=== PATIENT | male | born 1950 | race Caucasian/White ===

== ENCOUNTER 2020-11-14 00:36 | Outpatient (CLI) | payer MEDICARE, OTHER, SELFPAY ==
[2020-11-14 19:17] LABS: SARS-CoV-2 RNA PCR Negative
== END 2020-11-14 00:37 | disposition home or self-care (01) ==
LOC: ANHCOVIDDT 00:37
PROVIDERS: Family Provider Internal Medicine Geriatric Medicine; PCP Internal Medicine Geriatric Medicine; Visit Provider Internal Medicine Cardiovascular Disease
DX: Z01.812 Encounter for preprocedural laboratory examination (principal); Z20.822 Contact with and (suspected) exposure to COVID-19
CPT/HCPCS: C9803; U0003; U0005

== ENCOUNTER 2020-11-17 00:42 | Day surgery (SDC) | payer MEDICARE, OTHER, SELFPAY ==
[2020-11-17 07:41] VITALS: BP 124/90; PULSE 63; RESP 18; TEMP 36.6; O2SAT 98; BMI 29.9
--- NOTE | 2020-11-17 08:44 | WPDHPUPDATE1 ---
History and Physical Update Update Date/Time: 11/17/20 08:44 History and Physical has been reviewed, including an updated exam of the patient. There are NO changes in the patient's condition. Risks, benefits, and alternatives have been discussed and questions answered. Patient agrees to proceed with procedure.
--- NOTE | 2020-11-17 08:45 | P.OP_ITS ---
Procedure Note - Detailed Date of procedure: 11/17/20 Pre-op diagnosis: Near Syncope, NSVT Post-op diagnosis: same Procedure performed: Loop recorder implantation Description of procedure: Brief history present illness: Patient is a very pleasant 70-year-old male with a history of documented nonsustained VT, recurrent syncope and near-syncope referred for loop recorder implantation for further evaluation. After verbal and written informed consent was obtained from the patient risks, benefits, and alternatives explained in detail the patient agreed to proceed with the plan of care as outlined above. Patient was evaluated at bedside in the [facility] procedure room. Patient was placed the appropriate supine position. Left anterior chest wall was prepped and draped in the usual sterile fashion. Operators in appropriate sterile garb. The left 4th intercostal space was identified and marked. Utilizing approximately 26 cc of 1% subcutaneous lidocaine the left anterior chest wall was then locally anesthetized. After loc al anesthesia was achieved, 2 fingerbreadths left of the sternum at the 4th intercostal space was again identified and a 1 cm incision was made with the included skin punch tool. Following this with the included introducer, a tract was made subcutaneously at a 45 degree angle from the sternum. The introducer was then inverted 180 degrees and with the included plunger the Medtronic REVEAL LINQ loop recorder was advanced subcutaneously into position easily and without complication. The plunger was then removed followed by the introducer. Manual pressure was held for least 10 min with satisfactory hemostasis. The device was then interrogated and revealed excellent waveform measured at 0.14mV. The Medtronic REVEAL LINQ SN [id number] was implanted without complication. The incision was then approximated and closed using ExoFin skin adhesive The incision was then covered with a sterile dressing. Complications: None Implants: Medtronic Reveal LINQ loop recorder Anesthesia: local Surgeon: Dk Willis MD Estimated blood loss (mL): 0 Drains: No Packing: No Pathology: none sent Complications: No immediate complications Condition: stable Disposition: same day Findings: Successful implantation of Medtronic Reveal LINQ implantable loop recorder
[2020-11-17 09:30] VITALS: BP 129/91; PULSE 60; RESP 18; O2SAT 98
--- NOTE | 2020-11-17 09:46 | SUR.PHASEII ---
Pt. reviewed Linq informational video and successfully completed quiz. Pt. denies questions upon discharge.
--- NOTE | 2020-11-17 09:51 | SUR.PHASEII ---
Pt. given discharge education on event recorder implant and at-home care. Pt. instructed to follow-up in office for one week follow-up appointment on 11/24 at 0945 and to arrive at appointment at 0930. Pt. verbalizes understanding.
== END 2020-11-17 09:53 | disposition home or self-care (01) ==
PROVIDERS: PCP Internal Medicine Geriatric Medicine; Visit Provider Internal Medicine Cardiovascular Disease
PROC: (CPT 33285; principal; 2020-11-17 08:30)
DX: R55 Syncope and collapse (principal); I47.1 Supraventricular tachycardia
CPT/HCPCS: 33285; C1764

== ENCOUNTER 2020-11-21 14:39 | Outpatient (CLI) | payer MEDICARE, OTHER, SELFPAY ==
--- NOTE | ~2020-11-21 | CT_ITS ---
EXAMINATION: CT hip LT wo con DATE: 11/21/2020 15:06 INDICATION: Left hip pain. TECHNIQUE: Computed tomography (CT) of the left hip was performed without intravenous contrast. Autom ated exposure control and iterative reconstruction technique were employed. The dose-length product w as 320.54 mGy-cm. COMPARISON: None FINDINGS: There is a total left hip arthroplasty in near-anatomic alignment. No periprosthetic lucenc y to suggest loosening or infection. No fracture. The musculature is unremarkable. IMPRESSION: 1. Total left hip arthroplasty in near-anatomic alignment. Reviewed, dictated and finalized at location A. [employer]
== END 2020-11-21 14:40 | disposition home or self-care (01) ==
PROVIDERS: PCP Internal Medicine Geriatric Medicine; Visit Provider Physician Assistant
DX: M17.12 Unilateral primary osteoarthritis, left knee (principal)
CPT/HCPCS: 73700

== ENCOUNTER 2020-12-23 11:26 | Outpatient (CLI) | payer MEDICARE, OTHER, SELFPAY ==
--- NOTE | ~2020-12-23 | XR_ITS ---
EXAMINATION: XR lg joint inject/asp w image DATE: 12/23/2020 12:05 INDICATION: Left hip pain. TECHNIQUE: A time-out was performed to verify the patient's name, date of , and procedure to b e performed. The procedure including the risks, benefits, and alternatives was discussed with the pat ient. Risks discussed included bleeding and infection. The patient understood the risks and agreed to proceed. The skin overlying the left hip joint was prepped and draped in usual sterile fashion. An esthetic was administered with 1% lidocaine subcutaneously. A 22 G needle was advanced under fluoros copic guidance into the joint. Injection of 1 mL of Omnipaque 240 confirmed intra-articular position of the needle. Subsequently, injectate consisting of 2 mL 2% lidocaine and 1 mL 40 mg/mL Depo-Medro l was instilled. The needle was removed and the entry site was cleaned and dressed. There were no i mmediate complications. Fluoroscopy exposure time was 0.1 minutes. The total number of images was 3. FINDINGS: Real-time fluoroscopy demonstrates the needle in the left hip joint. Patient's pain prior t o procedure:0/10. Patient's pain following the procedure: 2/10. IMPRESSION: 1. Fluoroscopy guided left hip joint injection of local anesthetic and steroid. Reviewed, dictated and finalized at location A. [employer]
== END 2020-12-23 11:27 | disposition home or self-care (01) ==
PROVIDERS: PCP Internal Medicine Geriatric Medicine; Visit Provider Physician Assistant
DX: M25.552 Pain in left hip (principal)
CPT/HCPCS: 20610; 77002; J1030; Q9966

== ENCOUNTER 2021-02-06 13:57 | Outpatient (CLI) | payer MEDICARE, OTHER, SELFPAY ==
--- NOTE | ~2021-02-06 | XR_ITS ---
EXAMINATION: XR lg joint inject/asp w image DATE: 02/06/2021 14:59 INDICATION: Chronic left hip pain TECHNIQUE: A time-out was performed to verify the patient's name, date of , and procedure to b e performed. The procedure including the risks, benefits, and alternatives was discussed with the pat ient. Risks discussed included bleeding and infection. The patient understood the risks and agreed to proceed. The skin overlying the left hip joint was prepped and draped in usual sterile fashion. An esthetic was administered with 1% lidocaine subcutaneously. A 22 G needle was advanced under fluoros copic guidance into the joint. Injection of 2 mL of Omnipaque 240 confirmed intra-articular position of the needle. Subsequently, injectate consisting of 5 mm of a 4:1 mixture of 1% lidocaine, 40 mg/m L Depo-Medrol for a total dose of 40 mg Depo-Medrol was instilled. The needle was removed and the ent ry site was cleaned and dressed. There were no immediate complications. Fluoroscopy exposure time wa s 0.2 minutes. The total number of images was 1. FINDINGS: Left total hip arthroplasty. Contrast is seen extending expected oblique pattern along the course of the iliopsoas bursa extending from a needle which is superimposed over the superomedial asp ect of the acetabular component of the arthroplasty. Patient's pain prior to procedure:310. Patient 's pain following the procedure: 310. IMPRESSION: 1. Successful left iliopsoas bursal injection of local anesthetic and steroid with no change in the p atient's presenting pain. Reviewed, dictated and finalized at location A. IMPRESSION: 1. Successful left iliopsoas bursal injection of local anesthetic and steroid w ith no change in the patient's presenting pain.
== END 2021-02-06 13:58 | disposition home or self-care (01) ==
PROVIDERS: PCP Internal Medicine Geriatric Medicine; Visit Provider Orthopaedic Surgery
DX: M25.552 Pain in left hip (principal)
CPT/HCPCS: 20610; 77002; J1030; Q9966

== ENCOUNTER 2022-02-05 00:50 | Day surgery (SDC) | payer MEDICARE, OTHER, SELFPAY ==
[2022-02-04 10:35] VITALS: BMI 29.0
[2022-02-05 07:22] VITALS: BP 107/81; PULSE 70; RESP 18; TEMP 36.4; O2SAT 96; BMI 28.6
[2022-02-05 07:33] LABS: Basophils Absolute Auto 0.1 K/mm3 (0.0-0.1); Basophils Percent Auto 1.4 % (0.2-1.2); Eosinophils Absolute Auto 0.2 K/mm3 (0-0.3); Eosinophils Percent Auto 4.4 % (0-4.4); Hemoglobin 16.7 g/dL (14.0-18.0); Immature Granulocyte Absolute 0.01 K/mm3 (0.00-0.031); Immature Granulocyte Percent A 0.2 % (0-0.5); Lymphocytes Absolute Auto 1.17 K/mm3 (0.9-3.2); Lymphocytes Percent Auto 27.1 % (18.3-44.2); Mean Corpuscular HGB Conc 33.4 g/dl (32-36); Mean Corpuscular Hemoglobin 30.5 pg (26-34); Mean Corpuscular Volume 91.2 fl (80-100); Mean Platelet Volume 8.9 fl (7.4-10.4); Monocytes Absolute Auto 0.6 K/mm3 (0.1-0.6); Monocytes Percent Auto 14.8 % (2.6-8.5); Neutrophils Absolute Auto 2.3 K/mm3 (1.3-6.7); Neutrophils Percent Auto 52.1 % (45.5-73.1); Platelet Count Result 254 k/mm3 (150-375); Red Blood Count 5.48 M/mm3 (4.6-6.20); White Blood Count 4.3 K/mm3 (4.5-10.0)
[2022-02-05 07:43] LABS: Anion Gap 8 mmol/L (8-16); Blood Urea Nitrogen 30 mg/dL (9-20); Calcium 8.9 mg/dL (8.4-10.2); Carbon Dioxide 23 mmol/L (22-30); Chloride 109 mmol/L (98-107); Estimated CRCL calculation 44 ml/min; Estimated Glomerular Filt Rate 50; Glucose 123 mg/dL (65-110); Potassium 4.1 mmol/L (3.4-5.0); Sodium 140 mmol/L (137-145)
--- NOTE | 2022-02-05 08:55 | WPDHPUPDATE1 ---
History and Physical Update Update Date/Time: 02/05/22 08:55 History and Physical has been reviewed, including an updated exam of the patient. There are NO changes in the patient's condition. Risks, benefits, and alternatives have been discussed and questions answered. Patient agrees to proceed with procedure.
--- NOTE | 2022-02-05 08:58 | PM.OP ---
Procedure Note - Brief Procedure Note - Brief Date of procedure: 02/05/22 Pre-op diagnosis: Loop Recorder no longer needed history of nonsustained VT, paroxysmal atrial fibrillation, syncope; patient request explantation of loop recorder Post-op diagnosis: Same Procedure performed: loop recorder explantation Description of procedure: Brief History of Present Illness: Patient is a very pleasant 71-year-old male with a past medical history significant for syncope, nonsustained VT, paroxysmal atrial fibrillation status post loop recorder implantation 11/17/2020 for syncope and nonsustained VT without recurrent VT but noted paroxysmal episodes of atrial fibrillation. Despite adequate life of the device patient specifically requests explantation understanding this would limit ongoing evaluation for indications in which this was originally implanted. After verbal and written informed consent was obtained from the patient risks, benefits, and alternatives explained in detail the patient agreed to proceed with the plan of care as outlined above. Patient was evaluated at bedside in the cardiac catheterization lab. Patient was placed the appropriate supine position. Left anterior chest wall was prepped and draped in the usual sterile fashion. Operators in appropriate sterile garb. The prior device implantation site was once again identified at approximately the 4th intercostal space. Utilizing approximately 17 cc of 1% subcutaneous lidocaine the left anterior chest wall was then locally anesthetized. After local anesthesia was achieved, an approximately 1 cm incision was made with a scalpel. Subsequently, blunt dissection was then performed in the Medtronic Reveal LINQ was identified and extracted with the assistance of sharp dissection of minimal residual adhesions. Devices removed easily without complication. the device was noted be intact and clean. The pocket was then copiously flushed with Ancef solution. Excellent hemostasis was achieved and further ensured with manual pressure for 5-10 min. the incision was then approximated and closed with ExoFin skin adhesive and additional steristrips applied for additional security once skin adhesive was dry. Sterile dressing then applied. Complications: None Implants: not applicable Anesthesia: local Surgeon: Dk Willis MD Estimated blood loss (mL): 0 Drains: No Packing: No Pathology: None sent Complications: No immediate complications Condition: Stable Disposition: Same day Findings: Successful explantation of Medtronic Reveal LINQ loop recorder per patient request without complication. Recommendations: Follow-up post explantation instructions/ precautions. One week wound check as scheduled.
[2022-02-05 09:30] VITALS: BP 119/85; PULSE 63; RESP 20; O2SAT 100
== END 2022-02-05 10:09 | disposition home or self-care (01) ==
PROVIDERS: PCP Internal Medicine Geriatric Medicine; Visit Provider Internal Medicine Cardiovascular Disease
PROC: (CPT 33286; principal; 2022-02-05 08:30)
DX: Z45.09 Encounter for adjustment and management of other cardiac device (principal); I48.0 Paroxysmal atrial fibrillation; R55 Syncope and collapse; I47.1 Supraventricular tachycardia; E78.5 Hyperlipidemia, unspecified; Z79.82 Long term (current) use of aspirin
CPT/HCPCS: 33286; 36415; 80048; 85025; J0690; J7040

== ENCOUNTER → 2022-03-24 11:16 | Outpatient (CLI) | payer MEDICARE, OTHER, SELFPAY ==
--- NOTE | ~2022-03-24 | MR_ITS ---
EXAMINATION: MR lumbar spine wo con DATE: 03/24/2022 11:46 INDICATION: Lumbar radiculopathy. Low back pain radiating down the left leg. Lateral right calf pain. TECHNIQUE: Magnetic resonance imaging (MRI) of the lumbar spine was performed without intravenous con trast. Sequences included sagittal T2-weighted FSE, sagittal T2-weighted FS FSE, sagittal T1-weighted FSE, and axial T2-weighted FSE. COMPARISON: None FINDINGS: There is 7 degrees levocurvature of lumbar spine. There is 4 mm retrolisthesis of T12 on L1 , 6 mm retrolisthesis of L1 on L2, 4 mm retrolisthesis of L2 on L3, and 3 mm retrolisthesis of L3 on L4. There is mild chronic anterior wedging of T12 vertebral body. There is mildly decreased disc heig ht at T11-T12, severely decreased disc height at T12-L1 and L1-L2, moderately decreased disc height a t L2-L3, mildly decreased disc height at L3-L4 and L4-L5, and severely decreased disc at L5-S1 with e ndplate remodeling. 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 There are cysts in the liver measuring up to 4.2 cm on the right. The following disc levels are specifically discussed: T11-T12: The disc is bulging and has an annular fissure. There is mild bilateral facet joint osteoart hritis. There is mild left neural foraminal stenosis. There is mild central canal stenosis with ventr al indentation of the spinal cord. T12-L1: The disc is bulging and has an annular fissure. There is moderate bilateral facet joint osteo arthritis. There is no neural foraminal stenosis. There is mild central canal stenosis. L1-L2: The disc is bulging and has an annular fissure. There is severe bilateral facet joint osteoart hritis. There is moderate bilateral neural foraminal stenosis. There is mild central canal stenosis. L2-L3: The disc is bulging. There is mild bilateral facet joint osteoarthritis. There is moderate garfield ateral neural foraminal stenosis. There is mild central canal stenosis. L3-L4: The disc is bulging and has an annular fissure. There is severe bilateral facet joint osteoart hritis. There is mild bilateral neural foraminal stenosis. There is mild central canal stenosis. L4-L5: The disc is bulging and has an annular fissure. There is severe bilateral facet joint osteoart hritis. There is mild bilateral neural foraminal stenosis. There is mild central canal stenosis. L5-S1: The disc is bulging and has an annular fissure. There is severe bilateral facet joint osteoart hritis. There is mild bilateral neural foraminal stenosis. There is mild central canal stenosis. IMPRESSION: 1. Severe lumbar and lower thoracic spondylosis. 2. Syringohydromyelia. Reviewed, dictated and finalized at location A.
== END ==
PROVIDERS: PCP Internal Medicine Geriatric Medicine
DX: M54.16 Radiculopathy, lumbar region (principal); M47.816 Spondylosis without myelopathy or radiculopathy, lumbar region; G95.0 Syringomyelia and syringobulbia
CPT/HCPCS: 72148

== ENCOUNTER 2023-02-22 08:47 | Emergency (ER) | payer MEDICARE, OTHER, SELFPAY ==
[2023-02-22 08:49] VITALS: BP 130/86; PULSE 61; RESP 18; TEMP 36.6; O2SAT 96
[2023-02-22] MEDS: ONDANSETRON HCL ODT 4 MG TABLET PO (09:09)
--- NOTE | 2023-02-22 09:27 | ED.EPISTAXIS ---
HPI - Epistaxis General Chief complaint: Epistaxis Stated complaint: epistaxis Time Seen by Provider: 02/22/23 08:54 History of Present Illness HPI Narrative: This is a 72-year-old male who denies past medical history, who presents to the emergency department with a nosebleed. He states that approximately 7:00 this morning, he developed bleeding from the right nares that then progressed to the left. He states he swallowed blood but does not feel nauseous. He states he had a nosebleed approximately 15 years ago requiring cautery. He denies use of anticoagulants. The patient states he was seen at urgent care prior to arrival here. He was given Afrin in both nostrils. Related Data Home Medications Medication Instructions Recorded Confirmed citalopram 40 mg tablet (Celexa) 40 mg PO DAILY 11/17/20 02/05/22 Allergies Allergy/AdvReac Type Severity Reaction Status Date / Time No Known Allergies Allergy Mild Verified 02/22/23 08:54 Review of Systems Review of Systems: CONSTITUTIONAL: Denies fever, chills, or sweats. EYES: Denies visual changes, redness, or discharge. ENT: Epistaxis denies rhinorrhea, congestion, sore throat, or otalgia. CARDIOVASCULAR: Denies chest pain, palpitations, or edema. RESPIRATORY: Denies cough or dyspnea. GASTROINTESTINAL: Denies abdominal pain, nausea, vomiting, or diarrhea. GENITOURINARY: Denies dysuria or hematuria. NEUROLOGIC: Denies headache, numbness, dizziness, or weakness. PSYCHIATRIC: Denies anxiety or depression. [facility] Past Medical History Medical History NSVT (nonsustained ventricular tachycardia) Paroxysmal atrial fibrillation Syncope Surgical History Surgical History Status post placement of implantable loop recorder Social History Social History Alcohol intake: never Exam Narrative: GENERAL: Well-developed, well-nourished, and in no acute distress. HEAD: Normocephalic, atraumatic. EYES: PERRLA and EOMI. ENT: Small amount of blood is noted at the right nares, though there is no noted active bleeding in either nares. No rhinorrhea Mucous membranes moist. Oropharynx without tonsillar hypertrophy exudate or other lesions. No active bleeding is noted in the posterior pharynx CHEST: Clear to auscultation. No respiratory distress. No wheezes rales or rhonchi HEART: Regular rate and rhythm. No murmur heard. Normal peripheral pulses. ABDOMEN: Soft, nontender, nondistended, normal active bowel sounds. EXTREMITIES: Normal range of motion. No edema. NEURO: No focal deficits. Alert and oriented x3. PSYCH: Normal mood and affect. Course Course Emergency Course: 09:46 - Nasal clamp removed. No active bleeding is noted. We will continue to monitor with plan for discharge. 10:29 - No recurrent bleeding noted. Will discharge. Discussed return and emergency precautions including signs/symptoms of hemorrhagic anemia and ACS. The patient voiced understanding and is comfortable with plan. All questions answered to his satisfaction. Vital Signs Vital signs: Vital Signs Temperature 97.8 F 02/22/23 08:49 Pulse Rate 61 02/22/23 08:49 Respiratory Rate 18 02/22/23 08:49 Blood Pressure 130/86 02/22/23 08:49 Pulse Oximetry 96 02/22/23 08:49 Oxygen Delivery Room Air 02/22/23 08:49 Temperature 97.8 F 02/22/23 08:49 Pulse Rate 61 02/22/23 08:49 Respiratory Rate 18 02/22/23 08:49 Blood Pressure 130/86 02/22/23 08:49 Pulse Oximetry 96 02/22/23 08:49 Oxygen Delivery Room Air 02/22/23 08:49 MDM - Epistaxis MDM Narrative Medical decision making narrative: Plan: Number control, reassess Differential Diagnosis Differential diagnosis: Likely anterior epistaxis, posterior epistaxis and other Discharge Plan Discharge Clinical Impression: Epistaxis Patient
--- NOTE | 2023-02-22 10:00 | PC.NURSE ---
nasal clamp removed per [facility] EDP, no active bleeding noted.
[2023-02-22 10:31] VITALS: BP 132/81; PULSE 68; RESP 17; O2SAT 97
== END 2023-02-22 10:40 | disposition home or self-care (01) ==
PROVIDERS: Emergency Provider Preventive Medicine Aerospace Medicine; PCP Internal Medicine Geriatric Medicine
DX: R04.0 Epistaxis (principal); I48.0 Paroxysmal atrial fibrillation
CPT/HCPCS: 99282; A9270

== ENCOUNTER 2025-02-01 19:55 | Emergency (ER) | payer MEDICARE, OTHER, SELFPAY ==
[2025-02-01 19:57] VITALS: BP 120/77; PULSE 77; RESP 16; TEMP 36.6; O2SAT 97
--- OUTSIDE RECORDS SUMMARY | 2025-02-01 19:57 | XMS_ITS | Clinical Summary ---
Author Organization [facility] Address [address] [place] [id number] Care Team Providers Care Bulk Plant Manager Name Role Phone Unavailable Primary Care Provider Unavailabl e Social History Tobacco Use Types Packs/Day Years Used Date Smoking Tobacco: Never Assessed Sex and Gender Information Value Date Recorded Sex Assigned at Not on file Legal Sex Male 7:49 PM CDT Gender Identity Not on file Sexual Orientation Not on file Last Filed Vital Signs Vital Sign Reading Time Taken Comments Blood Pressure 109/76 06/27/2015 10:59 AM CDT Pulse 66 06/27/2015 10:59 AM CDT Temperature - - Respiratory Rate - - Oxygen Saturation - - Inhaled Oxygen Concentration - - Weight 98.9 kg (218 lb 2.1 oz) 06/27/2015 10:59 AM CDT Height 175.3 cm (5' 9 ) 06/27/2015 10:59 AM CDT Body Mass Index 32.21 06/27/2015 10:59 AM CDT Plan of Treatment Health Maintenance Due Date Last Done Comments Colorectal Cancer Screening Colonoscopy (10 Years) 1950 Hepatitis C 1969 DTaP, Tdap and Td Vaccines ( 1 - Tdap) 1970 Zoster Vaccines (1 of 2) 2001 Pneumococcal Vaccine: 50+ Ye ars (1 of 1 - PCV) 2016 COVID-19 Vaccine ( - 2023-2 5 season) 2024 RSV Immunization or 60+ Years (1 - 1-dose 75+ series) 2026 Meningococcal B Vaccine Aged Out No l onger eligible based on patient's age to complete this topic Meningococcal Vaccine Aged Out No mann elmer eligible based on patient's age to complete this topic RSV Immunizations Under 20 Months Aged Out No longer eligible based on patient's age to complete this topic
--- OUTSIDE RECORDS SUMMARY | 2025-02-01 19:57 | XMS_ITS | Encounter Summary ---
Author Organization [facility] Address [address] [place] [address] Phone Care Team Providers Care Lpn Private Duty Name Role Phone Zaina Terry MD Primary Care Provider + [phone] Jonathan Wong MD Unavailable [phone] Matthew Cole Unavailable Unavail able Wes Oreilly MD Unavailable + Mark Nelson OD Unavailable [phone] Shelley Figueroa MD, Duy Dunaway Unavailable [phone] Dk Willis MD Unavailable [phone] Everardo Huertas MD Unavailable [phone] Ladonna Figueroa MD, Wayne Maguire Unavailable +- [phone] Kevin Barone MD Unavailable Turner Ramos MD Unavailable [phone] Mark Lugo MD Unavailable [phone] Kristina Fonseca Unavailable [phone] David Maguire MD Unavailable [phone] Encounter Details Date Type Department Care Team (Late st Contact Info) Description 09/05/2017 Orders Only [facility] [address] [place] [phone] Zaina Terry MD [address] [place] [address] Social History Tobacco Use Types Packs/Day Years Used Date Smoking Tobacco: Never Smokeless Tobacco: Never Alcohol Use Standard Drinks/Week Comments No 0 (1 standard drink = 0.6 oz pur e alcohol) Sex and Gender Information Value Date Recorded Sex Assigned at Not on file Legal Sex Male 6:46 PM TANK TERMINAL GAUGER Gender Identity Not on file Sexual Orientation Straight 09/10/2020 8: 05 AM TANK TERMINAL GAUGER 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 on file Not on fi le documented as of this encounter Plan of Treatment Not on file documented as of this encounter Procedures Procedure Name Priority Date/Time Associated Diagnosis Comments SCAN - RADIOLOGY/IMAGING 09/05/2017 3:06 PM TANK TERMINAL GAUGER documented in this encounter Results * SCAN - RADIOLOGY/IMAGING (09/05/2017 3:06 PM TANK TERMINAL GAUGER) Anatomical Region Laterality Modality Other Zaina Terry MD Final Resu lt documented in this encounter Visit Diagnoses Not on filedocumented in this encounter Additional Health Concerns Infection Onset Date Last Indicated Resolved Time COVID: Suspected 09/05/2020 09/05/2020 09/06/2020 12:29 AM TANK TERMINAL GAUGER Respiratory Infection (SUMAYA), contact + droplet Comment:Automatically added due to negative COVID-19 result. 09/06/2020 09/06/2020 09/20/2020 3:0 6 AM TANK TERMINAL GAUGER COVID: Suspected 10/14/2024 10/14/2024 10/14/2024 3:28 PM TANK TERMINAL GAUGER Influenza, adult 10/14/2024 10/14/2024 10/21/2024 3:05 AM TANK TERMINAL GAUGER documented as of this encounter Care Teams Lpn Private Duty Relationship Specialty Start Date End Date Zaina Terry MD PCP - General 06/15/16 Jonathan Wong MD Surgeon Orthopedic Surgery 08/26/17 [place] Gastroenterology 08/26/17 09/12/20 Wes Oreilly MD [address] [place] [address] Consulting Physician Gastroenterology 08/26/17 0 Mark Nelson OD [address] [place] [address] Ophthalmology 08/26/17 Duy Rosa Jr., MD [address] [place] [address] Consulting Physician Cardiovascular Disease 08/28/17 1 11/12/19 Dk Willis MD [address] [place] [address] Consulting Physician Cardiology 11/01/17 Everardo Huertas MD [address] [place] [address] [address] [place] [address] Consulting Physician Gastroenterology 04/11/18 Wayne Dougherty Jr., MD [address] [place] [address] [address] [place] [address] Consulting Physician Orthopedic Surgery 10/06/18 Kevin Barone MD [address] [place] [address] [address] [place] [address] Consulting Physician General Surgery 02/25/21 Turner Ramos MD [address] [facility] [address] Consulting Physician Gastroenterology 02/27/21 Mark Lugo MD [address] [facility] [place] [address] Surgeon Orthopedic Surgery 07/17/21 Kristina Fonseca PA [address] [facility] [place] [address] Physician Pipe Machine Operator Orthopedic Surgery 07/22/21 David Maguire MD [address] [place] [address] Consulting Physician Otolaryngology 02/01/24 documented as of this encounter
--- OUTSIDE RECORDS SUMMARY | 2025-02-01 19:57 | XMS_ITS | Encounter Summary ---
Author Organization [facility] Healthcare Address [address] [place] [address] Care Team Providers Care Oven Heater Helper Name Role Phone Zaina Terry MD Primary Care Provider Jonathan Wong MD Unavailable +[phone] Mark Nelson OD Unavailable +[phone] Dk Willis MD Unavailable +[phone] Everardo Huertas MD Unavailable +[phone] Ladonna Figueroa MD, Wayne Maguire Unavailable +- [phone] Kevin Barone MD Unavailable Turner Ramos MD Unavailable +[phone] Mark Lugo MD Unavailable +[phone] Kristina Fonseca Unavailable +[phone] David Maguire MD Unavailable +[phone] Encounter Details Date Type Department Care Team (Late st Contact Info) Description 07/03/2021 Telephone [facility] [address] [place] [id number] Rip Hunt, RT Social History Tobacco Use Types Packs/Day Years Used Date Smoking Tobacco: Never Smokeless Tobacco: Never Alcohol Use Standard Drinks/Week Comments No 0 (1 standard drink = 0.6 oz pur e alcohol) AUDIT-C Answer Date Recorded Q1: How often do you have a drink containing alc ohol? 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 on file Not on fi le documented as of this encounter Plan of Treatment Not on file documented as of this encounter Visit Diagnoses Not on filedocumented in this encounter Additional Health Concerns Infection Onset Date Last Indicated Resolved Time COVID: Suspected 10/14/2024 10/14/2024 10/14/2024 3:28 PM IMMIGRATION PATROL INSPECTOR Influenza, adult 10/14/2024 10/14/2024 10/21/2024 3:05 AM IMMIGRATION PATROL INSPECTOR documented as of this encounter Care Teams Oven Heater Helper Relationship Specialty Start Date End Date Zaina Terry MD PCP - General 06/15/16 Jonathan Wong MD Surgeon Orthopedic Surgery 08/26/17 Mark Nelson OD [address] [place] [address] Ophthalmology 08/26/17 Dk Willis MD [address] [place] [address] Consulting Physician Cardiology 11/01/17 Everardo Huertas MD [address] [facility] [address] [place] [address] Consulting Physician Gastroenterology 04/11/18 Wayne Dougherty Jr., MD [address] [facility] [address] [place] [address] Consulting Physician Orthopedic Surgery 10/06/18 Kevin Barone MD [address] [facility] [address] Rydre [address] [place] [address] Consulting Physician General Surgery 02/25/21 Turner Ramos MD [address] [facility] [address] Ryder [address] [place] [address] Consulting Physician Gastroenterology 02/27/21 Mark Lugo MD [address] [place] [address] [address] [place] [address] Surgeon Orthopedic Surgery 07/17/21 Kristina Fonseca PA [address] [facility] [address] Ryder [address] [place] [address] Physician Cashier Credit Orthopedic Surgery 07/22/21 David Maguire MD [address] [place] [address] Consulting Physician Otolaryngology 02/01/24 documented as of this encounter
--- OUTSIDE RECORDS SUMMARY | 2025-02-01 19:57 | XMS_ITS | Encounter Summary ---
Author Organization [facility] ts Address [address] [place] [address] Phone Care Team Providers Care Resident Services Manager Name Role Phone Zaina Terry MD Primary Care Provider + [phone] Jonathan Wong MD Unavailable +[phone] Matthew Cole Unavailable Unavail able Wes Oreilly MD Unavailable + Mark Nelson OD Unavailable +[phone] Shelley Figueroa MD, Duy Dunaway Unavailable +[phone] Dk Willis MD Unavailable +[phone] Everardo Huertas MD Unavailable +[phone] Ladonna Figueroa MD, Wayne Maguire Unavailable +- [phone] Kevin Barone MD Unavailable Turner Ramos MD Unavailable +[phone] Mark Lugo MD Unavailable +[phone] Kristina Fonseca Unavailable +[phone] David Magiure MD Unavailable +[phone] Encounter Details Date Type Department Care Team (Late st Contact Info) Description 09/02/2017 Orders Only [facility] [address] [place] [address] Zaina Terry MD [address] [place] [address] Social History Tobacco Use Types Packs/Day Years Used Date Smoking Tobacco: Never Smokeless Tobacco: Never Alcohol Use Standard Drinks/Week Comments No 0 (1 standard drink = 0.6 oz pur e alcohol) Sex and Gender Information Value Date Recorded Sex Assigned at Not on file Legal Sex Male 6:46 PM JAVA DEVELOPER Gender Identity Not on file Sexual Orientation Straight 09/10/2020 8: 05 AM JAVA DEVELOPER 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 on file Not on fi le documented as of this encounter Plan of Treatment Not on file documented as of this encounter Procedures Procedure Name Priority Date/Time Associated Diagnosis Comments SCAN - RADIOLOGY/IMAGING 09/02/2017 11:04 AM JAVA DEVELOPER documented in this encounter Results * SCAN - RADIOLOGY/IMAGING (09/02/2017 11:04 AM JAVA DEVELOPER) Anatomical Region Laterality Modality Other Zaina Terry MD Final Resu lt documented in this encounter Visit Diagnoses Not on filedocumented in this encounter Additional Health Concerns Infection Onset Date Last Indicated Resolved Time COVID: Suspected 09/05/2020 09/05/2020 09/06/2020 12:29 AM JAVA DEVELOPER Respiratory Infection (SUMAYA), contact + droplet Comment:Automatically added due to negative COVID-19 result. 09/06/2020 09/06/2020 09/20/2020 3:0 6 AM JAVA DEVELOPER COVID: Suspected 10/14/2024 10/14/2024 10/14/2024 3:28 PM JAVA DEVELOPER Influenza, adult 10/14/2024 10/14/2024 10/21/2024 3:05 AM JAVA DEVELOPER documented as of this encounter Care Teams Resident Services Manager Relationship Specialty Start Date End Date Zaina Terry MD PCP - General 06/15/16 Jonathan Wong MD Surgeon Orthopedic Surgery 08/26/17 Matthew Cole Gastroenterology 08/26/17 09/12/20 Wes Oreilly MD [address] [place] [address] Consulting Physician Gastroenterology 08/26/17 0 Mark Nelson OD [address] [place] [address] Ophthalmology 08/26/17 Duy Rosa Jr., MD [address] [place] [address] Consulting Physician Cardiovascular Disease 08/28/17 1 11/12/19 Dk Willis MD [address] [place] [address] Consulting Physician Cardiology 11/01/17 Everardo Huertas MD [address] [place] [address] [address] [place] [address] Consulting Physician Gastroenterology 04/11/18 Wayne Dougherty Jr., MD [address] [place] [address] [address] [place] [address] Consulting Physician Orthopedic Surgery 10/06/18 Kevin Barone MD [address] [place] [address] [address] [place] [address] Consulting Physician General Surgery 02/25/21 Turner Ramos MD [address] [facility] [place] [address] Consulting Physician Gastroenterology 02/27/21 Mark Lugo MD [address] [facility] [place] [place] [address] Surgeon Orthopedic Surgery 07/17/21 Kristina Fonseca PA [address] [facility] [place] [address] Physician Insulation Worker Orthopedic Surgery 07/22/21 David Maguire MD [address] [place] [address] Consulting Physician Otolaryngology 02/01/24 documented as of this encounter
--- OUTSIDE RECORDS SUMMARY | 2025-02-01 19:57 | XMS_ITS | Encounter Summary ---
Author Organization [facility] ts Address [address] [place] [address] Phone Care Team Providers Care Metal Painter Name Role Phone Zaina Terry MD Primary Care Provider + [phone] Jonathan Wong MD Unavailable +[phone] Matthew Cole Unavailable Unavail able Wes Oreilly MD Unavailable + Mark Nelson OD Unavailable +[phone] Shelley Figueroa MD, Duy Dunaway Unavailable +[phone] Dk Willis MD Unavailable +[phone] Everardo Huertas MD Unavailable +[phone] Ladonna Figueroa MD, Wayne Maguire Unavailable +- [phone] Kevin Barone MD Unavailable Turner Ramos MD Unavailable +[phone] Mark Lugo MD Unavailable +[phone] Kristina Fonseca Unavailable +[phone] David Maguire MD Unavailable +[phone] Encounter Details Date Type Department Care Team (Late st Contact Info) Description 09/05/2017 Orders Only [facility] [address] [place] [address] Zaina Terry MD [address] [place] [address] Social History Tobacco Use Types Packs/Day Years Used Date Smoking Tobacco: Never Smokeless Tobacco: Never Alcohol Use Standard Drinks/Week Comments No 0 (1 standard drink = 0.6 oz pur e alcohol) Sex and Gender Information Value Date Recorded Sex Assigned at Not on file Legal Sex Male 6:46 PM MOTORCYCLE POLICE OFFICER Gender Identity Not on file Sexual Orientation Straight 09/10/2020 8: 05 AM MOTORCYCLE POLICE OFFICER 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 on file Not on fi le documented as of this encounter Plan of Treatment Not on file documented as of this encounter Procedures Procedure Name Priority Date/Time Associated Diagnosis Comments SCAN - RADIOLOGY/IMAGING 09/05/2017 3:06 PM MOTORCYCLE POLICE OFFICER documented in this encounter Results * SCAN - RADIOLOGY/IMAGING (09/05/2017 3:06 PM MOTORCYCLE POLICE OFFICER) Anatomical Region Laterality Modality Other Zaina Terry MD Final Resu lt documented in this encounter Visit Diagnoses Not on filedocumented in this encounter Additional Health Concerns Infection Onset Date Last Indicated Resolved Time COVID: Suspected 09/05/2020 09/05/2020 09/06/2020 12:29 AM MOTORCYCLE POLICE OFFICER Respiratory Infection (SUMAYA), contact + droplet Comment:Automatically added due to negative COVID-19 result. 09/06/2020 09/06/2020 09/20/2020 3:0 6 AM MOTORCYCLE POLICE OFFICER COVID: Suspected 10/14/2024 10/14/2024 10/14/2024 3:28 PM MOTORCYCLE POLICE OFFICER Influenza, adult 10/14/2024 10/14/2024 10/21/2024 3:05 AM MOTORCYCLE POLICE OFFICER documented as of this encounter Care Teams Metal Painter Relationship Specialty Start Date End Date Zaina Terry MD PCP - General 06/15/16 Jonathan Wong MD Surgeon Orthopedic Surgery 08/26/17 Matthew Cole Gastroenterology 08/26/17 09/12/20 Wes Oreilly MD [address] [place] [address] Consulting Physician Gastroenterology 08/26/17 0 Mark Nelson OD [address] [place] [address] Ophthalmology 08/26/17 Duy Rosa Jr., MD [address] [place] [address] Consulting Physician Cardiovascular Disease 08/28/17 1 11/12/19 Dk Willis MD [address] [place] [address] Consulting Physician Cardiology 11/01/17 Everardo Huertas MD [address] [place] [address] [address] [place] [address] Consulting Physician Gastroenterology 04/11/18 Wayne Dougherty Jr., MD [address] [place] [address] [address] [place] [address] Consulting Physician Orthopedic Surgery 10/06/18 Kevin Barone MD [address] [place] [address] [address] [place] [address] Consulting Physician General Surgery 02/25/21 Turner Ramos MD [address] [facility] [place] [address] Consulting Physician Gastroenterology 02/27/21 Mark Lugo MD [address] [facility] [place] [address] Surgeon Orthopedic Surgery 07/17/21 Kristina Fonseca PA [address] [facility] [place] [address] Physician Lamp Shades Supervisor Orthopedic Surgery 07/22/21 David Maguire MD [address] [place] [address] Consulting Physician Otolaryngology 02/01/24 documented as of this encounter
--- OUTSIDE RECORDS SUMMARY | 2025-02-01 19:57 | XMS_ITS | CONTINUITY OF CARE DOCUMENT ---
Author Name judd whaley Address Unknown Organization [facility] Address [address] [place] [address] Phone [phone] Care Team Providers Care Cafe Aide Name Role Phone Shelley DIEGO, Duy Unavailable [phone] FAITH DAVILA MD Unavailable FAITH DAVILA MD Unavailable INSURANCE PROVIDERS Payer name Policy type / Coverage type [place] red constitution party ID [employer] Other 1 [id number] [place] [employer] Medicare [id number]
--- OUTSIDE RECORDS SUMMARY | 2025-02-01 19:57 | XMS_ITS | Encounter Summary ---
Author Organization [facility] Address [address] [place] [address] Phone Care Team Providers Care Industrial Health Engineer Name Role Phone Zaina Terry MD Primary Care Provider [phone] Jonathan Wong MD Unavailable +[phone] Mark Nelson OD Unavailable +[phone] Dk Willis MD Unavailable Everardo Huertas MD Unavailable +[phone] Ladonna Figueroa MD, Wayne Maguire Unavailable [phone] Kevin Barone MD Unavailable Turner Ramos MD Unavailable +[phone] Mark Lugo MD Unavailable +[phone] Kristina Fonseca Unavailable +[phone] David Maguire MD Unavailable +[phone] Encounter Details Date Type Department Care Team (Late st Contact Info) Description 10/27/2020 Orders Only [facility] [address] [place] [address] Scanning, Provider Social History Tobacco Use Types Packs/Day Years Used Date Smoking Tobacco: Never Smokeless Tobacco: Never Alcohol Use Standard Drinks/Week Comments No 0 (1 standard drink = 0.6 oz pur e alcohol) PHQ-2 Answer Date Recorded PHQ-2 Total Score (If total score is 3 or more points, staff should administer the PHQ-9) 0 02/29/2020 Sex and Gender Information Value Date Recorded Sex Assigned at Not on file Legal Sex Male 6:46 PM AQUARIUM TANK ATTENDANT Gender Identity Not on file Sexual Orientation Straight 09/10/2020 8: 05 AM AQUARIUM TANK ATTENDANT 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 on file Not on fi le documented as of this encounter Plan of Treatment Not on file documented as of this encounter Procedures Procedure Name Priority Date/Time Associated Diagnosis Comments GI - RESULT 10/27/2020 documented in this encounter Results * GI - RESULT (10/27/2020) Anatomical Region Laterality Modality Other us Provider Scanning Final Result documented in this encounter Visit Diagnoses Not on filedocumented in this encounter Additional Health Concerns Infection Onset Date Last Indicated Resolved Time COVID: Suspected 10/14/2024 10/14/2024 10/14/2024 3:28 PM AQUARIUM TANK ATTENDANT Influenza, adult 10/14/2024 10/14/2024 10/21/2024 3:05 AM AQUARIUM TANK ATTENDANT documented as of this encounter Care Teams Industrial Health Engineer Relationship Specialty Start Date End Date Zaina Terry MD PCP - General 06/15/16 Jonathan Wong MD Surgeon Orthopedic Surgery 08/26/17 Mark Nelson OD [address] [place] [address] Ophthalmology 08/26/17 Dk Willis MD [address] [place] [address] Consulting Physician Cardiology 11/01/17 Everardo Huertas MD [address] [facility] [address] [place] [address] Consulting Physician Gastroenterology 04/11/18 Wayne Dougherty Jr., MD [address] [place] [address] [address] [place] [address] Consulting Physician Orthopedic Surgery 10/06/18 Kevin Barone MD [address] [facility] [address] [place] [address] Consulting Physician General Surgery 02/25/21 Turner Ramos MD [address] [place] [address] [address] [place] [address] Consulting Physician Gastroenterology 02/27/21 Mark Lugo MD [address] [place] [address] [address] [place] [address] Surgeon Orthopedic Surgery 07/17/21 Kristina Fonseca PA [address] [facility] [place] [address] Physician Three Dimensional Art Instructor Orthopedic Surgery 07/22/21 David Maguire MD [facility] [place] [address] Consulting Physician Otolaryngology 02/01/24 documented as of this encounter
--- OUTSIDE RECORDS SUMMARY | 2025-02-01 19:57 | XMS_ITS | Encounter Summary ---
Author Organization [facility] ts Address [address] [place] [address] Phone Care Team Providers Care Iron Melter Name Role Phone Zaina Terry MD Primary Care Provider + [phone] Jonathan Wong MD Unavailable +[phone] Matthew Cole Unavailable Unavail able Wes Oreilly MD Unavailable + Mark Nelson OD Unavailable +[phone] Shelley Figueroa MD, Duy Dunaway Unavailable +[phone] Dk Willis MD Unavailable +[phone] Everardo Huertas MD Unavailable +[phone] Ladonna Figueroa MD, Wayne Maguire Unavailable +- [phone] Kevin Barone MD Unavailable Turner Ramos MD Unavailable +[phone] Mark Lugo MD Unavailable +[phone] Kristina Fonseca Unavailable +[phone] David Maguire MD Unavailable +[phone] Encounter Details Date Type Department Care Team (Late st Contact Info) Description 09/02/2017 Orders Only [facility] [address] [place] [address] Zaina Terry MD [address] [place] [address] Social History Tobacco Use Types Packs/Day Years Used Date Smoking Tobacco: Never Smokeless Tobacco: Never Alcohol Use Standard Drinks/Week Comments No 0 (1 standard drink = 0.6 oz pur e alcohol) Sex and Gender Information Value Date Recorded Sex Assigned at Not on file Legal Sex Male 6:46 PM HUMAN RESOURCES CLERK Gender Identity Not on file Sexual Orientation Straight 09/10/2020 8: 05 AM HUMAN RESOURCES CLERK 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 on file Not on fi le documented as of this encounter Plan of Treatment Not on file documented as of this encounter Procedures Procedure Name Priority Date/Time Associated Diagnosis Comments SCAN - RADIOLOGY/IMAGING 09/02/2017 11:04 AM HUMAN RESOURCES CLERK documented in this encounter Results * SCAN - RADIOLOGY/IMAGING (09/02/2017 11:04 AM HUMAN RESOURCES CLERK) Anatomical Region Laterality Modality Other Zaina Terry MD Final Resu lt documented in this encounter Visit Diagnoses Not on filedocumented in this encounter Additional Health Concerns Infection Onset Date Last Indicated Resolved Time COVID: Suspected 09/05/2020 09/05/2020 09/06/2020 12:29 AM HUMAN RESOURCES CLERK Respiratory Infection (SUMAYA), contact + droplet Comment:Automatically added due to negative COVID-19 result. 09/06/2020 09/06/2020 09/20/2020 3:0 6 AM HUMAN RESOURCES CLERK COVID: Suspected 10/14/2024 10/14/2024 10/14/2024 3:28 PM HUMAN RESOURCES CLERK Influenza, adult 10/14/2024 10/14/2024 10/21/2024 3:05 AM HUMAN RESOURCES CLERK documented as of this encounter Care Teams Iron Melter Relationship Specialty Start Date End Date Zaina Terry MD PCP - General 06/15/16 Jnoathan Wong MD Surgeon Orthopedic Surgery 08/26/17 Matthew Cole Gastroenterology 08/26/17 09/12/20 Wes Oreilly MD [address] [place] [address] Consulting Physician Gastroenterology 08/26/17 0 Mark Nelson OD [address] [place] [address] Ophthalmology 08/26/17 Duy Rosa Jr., MD [address] [place] [address] Consulting Physician Cardiovascular Disease 08/28/17 1 11/12/19 Dk Willis MD [address] [place] [address] Consulting Physician Cardiology 11/01/17 Everardo Huertas MD [address] [place] [address] [address] [place] [address] Consulting Physician Gastroenterology 04/11/18 Wayne Dougherty Jr., MD [address] [place] [address] [address] [place] [place] [address] Consulting Physician Orthopedic Surgery 10/06/18 Kevin Barone MD [address] [place] [address] [address] [place] [place] [address] Consulting Physician General Surgery 02/25/21 Turner Ramos MD [address] [facility] [place] [address] Consulting Physician Gastroenterology 02/27/21 Mark Lugo MD [address] [facility] [place] [address] Surgeon Orthopedic Surgery 07/17/21 Kristina Fonseca PA [address] [facility] [address] [facility] [address] Physician Political Theory Professor Orthopedic Surgery 07/22/21 David Maguire MD [address] [place] [address] Consulting Physician Otolaryngology 02/01/24 documented as of this encounter
--- OUTSIDE RECORDS SUMMARY | 2025-02-01 19:58 | XMS_ITS | Encounter Summary ---
Author Organization [facility] Healthcare Address [address] [place] [address] Care Team Providers Care Link Trainer Name Role Phone Zaina Terry MD Primary Care Provider [phone] Jonathan Wong MD Unavailable [phone] Mark Nelson OD Unavailable [phone] Dk Willis MD Unavailable Everardo Huertas MD Unavailable [phone] Ladonna Figueroa MD, Wayne Maguire Unavailable [phone] Kevin Barone MD Unavailable Turner Ramos MD Unavailable [phone] Mark Lugo MD Unavailable [phone] Kristina Fonseca Unavailable [phone] David Maguire MD Unavailable [phone] Encounter Details Date Type Department Care Team (Late st Contact Info) Description 02/01/2025 Telephone [facility] Orthopedics and Sports Medicine [address] [place] [address] [address] [place] [address] Chicho Musa NP [address] [place] [address] [facility] [address] [place] [address] Social History Tobacco Use Types Packs/Day Years Used Date Smoking Tobacco: Never Smokeless Tobacco: Never Alcohol Use Standard Drinks/Week Comments No 0 (1 standard drink = 0.6 oz pur e alcohol) AUDIT-C Answer Date Recorded Q1: How often do you have a drink containing alcohol? Never 01/31/2025 Q2: How many drinks containi ng alcohol do you have on a typical day when you are drinking? Patient does not drink Q3: How often do you have si x or more drinks on one occasion? Never 01/31/2025 PHQ-2 Answer Date Recorded PHQ-2 Total Score (If total score is 3 or more points, staff should administer the PHQ-9) 0 01/18/2025 Personal Safety Answer Date Recorded Have you ever been in or are you currently in a harmful physical or emotional relationship or is someone making you feel afraid or unsafe? 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 Recommend he go to ER for evaluation. Patient verbalizes understanding and agreesto go. documented in this encounter Plan of Treatment Not on file documented as of this encounter Visit Diagnoses Not on filedocumented in this encounter Care Teams Link Trainer Relationship Specialty Start Date End Date Zaina Terry MD PCP - General 06/15/16 Jonathan Wong MD Surgeon Orthopedic Surgery 08/26/17 Mark Nelson OD [address] [place] [address] Ophthalmology 08/26/17 Dk Willis MD [address] [place] [address] Consulting Physician Cardiology 11/01/17 Everardo Huertas MD [address] [place] [address] [place] [address] Consulting Physician Gastroenterology 04/11/18 Wayne Dougherty Jr., MD [address] [place] [address] [place] [address] Consulting Physician Orthopedic Surgery 10/06/18 Kevin Barone MD [address] [place] [address] [place] [address] Consulting Physician General Surgery 02/25/21 Turner Ramos MD [address] [place] [address] [place] [address] Consulting Physician Gastroenterology 02/27/21 Mark Lugo MD [address] [place] [address] [place] [address] Surgeon Orthopedic Surgery 07/17/21 Kristina Fonseca PA [address] [place] [address] [place] [address] Physician Audio Visual Technician Orthopedic Surgery 07/22/21 David Maguire MD [address] [place] [address] Consulting Physician Otolaryngology 02/01/24 documented as of this encounter
--- OUTSIDE RECORDS SUMMARY | 2025-02-01 19:58 | XMS_ITS | Encounter Summary ---
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 Clay Dry Press Mixer Operator Name Role Phone Zaina Terry MD Primary Care Provider + [phone] Jonathan Wong MD Unavailable [phone] Mark Nelson OD Unavailable [phone] Dk Willis MD Unavailable [phone] Everardo Huertas MD Unavailable [phone] Ladonna Figueroa MD, Wayne Maguire Unavailable [phone] Kimberly Barone MD Unavailable Turner Ramos MD Unavailable [phone] Mark Lugo MD Unavailable [phone] Kristina Fonseca Unavailable [phone] David Maguire MD Unavailable [phone] Reason for Visit * Auth/Cert (Routine) Specialty Diagnoses / Procedures Referred By Contac t Referred To Contact Diagnoses Primary osteoarthritis of right knee Primary osteoarthritis of right knee [M17.11] Procedures VT ARTHRP KNE CONDYLE&PLATU MEDIAL&LAT COMPARTMENTS Right Total Knee Arthroplasty- Robotic, Depuy- Attune, Velys, Cooling Unit-[facility], 1 Liter Beta Rinse, Pt to Go Home Referral ID Status Reason Start Date Expiration Date Visits Re quested Visits Authorized [id number] 1 1 Encounter Details Date Type Department Care Team (Late st Contact Info) Description 01/31/2025 8:36 AM CDT Anesthesia Event [facility] Operating Room [address] [place] [address] Marcel Josesito Chon, DO [address] [facility] [address] [address] [place] [address] [place] [address] [facility] [address] [place] [address] Anesthesia Record Procedure Summary Procedure Name Responsible Anesthesiologist Anesthesia Start Time Anesthesia Stop Time Right Robotic Assisted Total Knee Arthroplasty (Right: Knee) Josesito Rod, 01/31/25 0836 01/31/25 1109 Events Date Time Event Comment 01/31/2025 0733 0835 In Room 0836 An Start 0836 An Start Data 0838 an matthew now 0846 Spinal Placed 0847 Start Supplemental O2 Placed on 6L/min oxygen via simple facemask for rest of case unless otherwise noted in subsequent Q-notes. Disregard any other intraoperative oxygen administration beyond this point that may have been auto-populated unless otherwise noted in subsequent Q-notes. 0849 An Induction The patient was reevaluated immediately before moderate or deep sedation use and before anesthesia induction. 0849 Anesthesia Ready 0932 Proc Start 0932 Incision Start 1105 Proc Fin 1105 an stop data 1109 Out of Room 1109 Handoff to RN I completed my handoff to the receiving nurse during which we: 1. Patient identified 2. Responsible provider identified 3. Pertinent medical history reviewed 4. Procedure type and surgical course discussed 5. Intraoperative anesthetic management and any significant issues discussed 6. Expectations and concerns for postop period discussed 7. Questions solicited from receiving nurse 8. Patient disposition at the time of handoff: PACU 1109 An Stop Meds Name Total propofol 1,398.71 mg fentaNYL 100 mcg midazolam 2 mg phenylephrine (BIORPHEN) 0.5 mg/5 mL (10 0 mcg/mL) injection 1,100 mcg ondansetron 8 mg ceFAZolin (ANCEF) 2,000 mg/20 mL in ster ile water (premix) 2,000 mg 2,000 mg tranexamic acid (CYKLOKAPRON ) 1,000 mg/100 mL (10 mg/mL) in sodium chloride (premix) 1,000 mg 1,000 mg dexAMETHasone (DECADRON) 4 mg/mL injecti on 8 mg 8 mg BUPivacaine 0.75 %-dextrose 8.25 % PF 2 mL lidocaine 2 % PF 100 mg glycopyrrolate 0.2 mg dexmedeTOMIDine 4 mcg/mL 28 mcg Lactated Ringer's (LR) infusion 1,000 mL * Agents Name O2% N2O O2 N2O Air * Blood No blood administrations on file. Lines, Drains, and Airways Type Details Placement Removal Wound 01/31/25; 0940; N; Incision; Knee; Anterior, Right; Right total knee arthroplasty 01/31/25 0940 by Lucy Moran RN Peripheral IV Placement Date: 01/15 05/10; Placement Time: 0739; Catheter Size: 20 G; Orientation: Anterior, Left; Location: Wrist; Site Prep: Chlorhexidine; Inserted by: JULIANA Sommer; Insertion Attempts: 1; Patient Tolerance: Tolerated well; Removal Date: 01/31/25; Removal Time: 1605; Removal Reason: Discharge 01/31/25 0739 by Kranthi Madison RN 01/31/25 1605 by Kranthi Madison RN documented in this encounter Social History Tobacco Use Types Packs/Day Years [...] on file Legal Sex Male 6:46 PM [employer] Gender Identity Not on file Sexual Orientation Straight 09/10/2020 8: 05 AM [employer] 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 Never 01/31/2025 7:46 AM ELVIAT Anupam Madison RN Q2: How many drinks containing alcohol do you have on a typical day when you are drinking? Patient does not drink 01/31/2025 7:46 AM ELVIAT Kranthi Madison RN Q3: How often do you have six or more drinks on one occasion? Never 01/31/2025 7:46 AM CDT Anupam Madison RN documented as of this encounter OR Notes * Anesthesia Postprocedure Evaluation - Liu Eubanks CRNA - 01/31/2025 11:09 AM CDT Patient: Matthew Tian Procedure Summary Date: 01/31/25 Room / Location: [facility] OR [address] [place] [address] OPERATING ROOM Anesthesia Start: 835 Anesthesia Stop: 1108 Procedure: Right Robotic Assisted Total Knee Arthroplasty (Right: Knee) Diagnosis: Primary osteoarthritis of right knee (Primary osteoarthritis of right knee [M17.11]) Providers: Mark Lugo MD Responsible Provider: Josesito Rod DO Anesthesia Type: general TIVA, spinal ASA Status: 2 Anesthesia Type: general TIVA, spinal Last vitals BP 119/81 Pulse 59 Temp 36.2 ??C (97.2 ??F) (Temporal) Resp 18 SpO2 98% Anesthesia Post Evaluation Patient location during evaluation: PACU Patient participation: complete - patient participated Level of consciousness: lethargic, follows simple commands and 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 * Anesthesia Procedure Notes - Liu Eubanks CRNA - 01/31/2025 8:52 AM CDTAssociated Order(s): Spinal Block Spinal Block Patient location: OR Reason for block: primary anesthetic Staff: Placed by: COMPUTER LAB ASSISTANT:Liu Eubanks CRNA Procedure prep: Preprocedure checklist: patient identified, procedure contraindications assessed, site marked, procedure consent, surgical consent, IV checked, risks, benefits and alternatives discussed, monitors and equipment checked and timeout performed Patient position: sitting Procedure performed while patient: sedate with meaningful contact Monitoring: oximetry and blood pressure Prep solution: chlorhexadine/alcohol PPE: provider hat/mask, sterile gloves and sterile drape Skin infiltrated with lidocaine 1%: yes Spinal: Approach: midline Introducer used: no Location: L4-5 Spinal injection: CSF demonstrated, no aspiration of heme and no paresthesias noted Number of attempts: 2 Other sites attempted: L3-4 Spinal Needle: Needle type: Gracia Needle gauge: 22 G Needle length: 9 cm Assessment: Sensory deficit - left: full eval pending Sensory deficit - right: full eval pending Events: patient tolerated procedure well with no complications * Anesthesia Preprocedure Evaluation - Urban Lopez MD - 01/31/2025 7:25 AM CDT Images from the original note were not included. Anesthesia Evaluation Matthew Tian is a 74 y.o. male Right Total Knee Arthroplasty- Robotic, Depuy- Attune, Velys, Cooling Unit[facility], 1 Liter BetaRinse, Pt to Go Home (Right: Knee) Pre-Op Diagnosis Codes: * Primary osteoarthritis of right knee [M17.11] HISTORY Past Medical History Information obtained from: patient and chart. Information obtained during: In Person Neurological + Psychiatric history - depression and anxiety Cardiovascular Cardiac system: negative Respiratory Respiratory system: negative Hepatic / Heme Hepatic/Heme system: negative Gastrointestinal GI system: negative Renal / + Renal disease - CKD Musculoskeletal/Pain + Osteoarthritis Endocrine / Other Endocrine/Other system: negative Patient Active Problem List Diagnosis Date Noted Pre-op evaluation 01/14/2025 S/P bilateral inguinal hernia repair, follow-up exam 12/13/2024 Insomnia due to medical condition 08/28/2024 Primary osteoarthritis of right knee 06/01/2024 Elevated serum creatinine 02/06/2024 Frequent nosebleeds 02/06/2024 Sacroiliitis 06/08/2023 DDD (degenerative disc disease), lumbar 03/30/2022 Lumbar radiculopathy 03/23/2022 Celiac artery stenosis 03/13/2021 Bilateral inguinal hernia without obstruction or gangrene 02/27/2021 Hiatal hernia 02/24/2021 Mood disorder 02/22/2021 GERD without esophagitis 02/22/2021 Dizziness 02/18/2021 Status post placement of implantable loop recorder 11/17/2020 NSVT (nonsustained ventricular tachycardia) (HCC) 09/10/2020 Multiple-type hyperlipidemia 02/29/2020 Sleep-disordered breathing 05/19/2018 BPH without urinary obstruction 04/14/2018 Iron deficiency anemia 04/06/2018 Abnormal EKG 08/28/2017 Recurrent moderate major depressive disorder with anxiety (HCC) 07/17/2017 Past Medical History: Diagnosis Date Adjustment disorder Anemia due to GI blood loss 02/22/2021 BPH (benign prostatic hyperplasia) CKD (chronic kidney disease) stage 3, GFR 30-59 ml/min (HCC) 03/02/2020 Creatinine 1.31 new finding as of annual physical February 2020 Depression GERD (gastroesophageal reflux disease) Occult blood positive stool Pneumonia Pruritus 03/02/2014 Chronic pruritus Ventricular tachycardia (HCC) loop recorder in 2019 and then removed Past Surgical History: Procedure Laterality Date COLONOSCOPY 09/20/2016 Dr. Sullivan (-) COLONOSCOPY 10/27/2020 (-) Dr. Huertas ELBOW SURGERY x's 2 ESOPHAGOSCOPY / EGD 04/07/2018 (+) Dr. Sullivan NSAID ulcer bleeding hemoglobin the 6 ESOPHAGOSCOPY / EGD 02/2020 (+) Dr. Ramos large paraesophageal hernia with ulceration and bleeding HERNIA REPAIR 11/30/2024 Inguinal HM GASTROSCOPY (EGD) 02/24/2020 (+) Dr. Ramos large hiatal hernia with rotation recently bleeding ulcer within the hiatal hernia JOINT REPLACEMENT Bilateral LTHA KNEE ARTHROSCOPY Right LAPAROSCOPIC MAR FUNDOPLICATION 05/06/2021 (+) KIMBERLY Flanagan paraesophageal hernia repair ROTATOR CUFF REPAIR Right TOTAL HIP ARTHROPLASTY Right 07/22/2021 No Known Allergies Med List Status: Nurse Complete Set By: Batsheva Koch RN at 01/24/2025 9:48 AM Taking? Last Dose Start Date End Date Provider cholecalciferol (VITAMIN D-3) 50,000 unit capsule 01/25/2025 03/14/24 -- Zaina Terry MD Take 1 capsule (50,000 Units total) by mouth once a week Notes: Least expensive available on [facility] citalopram (CeleXA) 20 mg tablet 01/30/2025 10/26/24 -- Zaina Terry MD TAKE 1 TABLET BY MOUTH DAILY traZODone (DESYREL) 50 mg tablet 01/30/2025 01/23/25 -- Zaina Terry MD TAKE 1 TABLET (50 MG TOTAL) BY MOUTH NIGHTLY NEEDED FOR SLEEP Current Facility-Administered Medications: acetaminophen (TYLENOL) tablet 1,000 mg, 1,000 mg, oral, Once BUPivacaine (MARCAINE) 50 mg, morphine 10 mg, EPINEPHrine 0.3 mg, ketorolac (TORADOL) 30 mg in sodium chloride 0.9% 20 mL topical solution, , topical, Once Carrier Fluids for Secondary Infusion - 0.9% Sodium Chloride, 30 mL, intravenous, PRN ceFAZolin (ANCEF) 2,000 mg/20 mL in sterile water (premix) 2,000 mg, 2,000 mg, intravenous, Once celecoxib (CeleBREX) capsule 200 mg, 200 mg, oral, Once dexAMETHasone (DECADRON) 4 mg/mL injection 8 mg, 8 mg, intravenous, Once Lactated Ringer's (LR) infusion, 30 mL/hr, intravenous, Continuous sodium chloride 0.9% flush 0.5-20 mL, 0.5-20 mL, intra-catheter, PRN tranexamic acid (CYKLOKAPRON) 1,000 mg/100 mL (10 mg/mL) in sodium chloride (premix) 1,000 mg, 15 mg/kg, intravenous, Once Social History Tobacco Use Smoking Status Never Smokeless Tobacco Never Alcohol Use: Not At Risk (01/24/2025) AUDIT-C Frequency of Alcohol Consumption: Never Average Number of Drinks: Patient does not drink Frequency of Binge Drinking: Never Substance and Sexual Activity Drug Use No Family History Problem Relation Age of Onset Bipolar disorder Father Suicide Completion Father 50 Breast cancer Sister Cancer Sister Prostate cancer Other Vitals: 01/31/25 0717 BP: 119/81 Pulse: 59 Resp: 18 Temp: 36.2 ??C (97.2 ??F) SpO2: 98% PT: No results found for requested labs within last 30 days. INR: No results found for requested labs within last 30 days. APTT: No results found for requested labs within last 30 days. Hgb A1C: 01/11/2025: 5.4 % CBC RBC: 01/11/2025: 4.83 M/cumm RDW: No results found for requested labs within last 30 days. MCHC: 01/11/2025: 33.8 g/dL MCH: 01/11/2025: 31.3 pg MCV: 01/11/2025: 92.5 fL Hct: 01/11/2025: 44.7 % Hgb: 01/11/2025: 15.1 g/dL WBC: 01/11/2025: 4.3 K/cumm MPV: 01/11/2025: 9.1 fL Platelets: 01/11/2025: 234 K/cumm RDW CV: 01/11/2025: 13.6 % RDW Sd: 01/11/2025: 46.6 fL BMP Glucose: 01/11/2025: 108 mg/dL Calcium: 01/11/2025: 9.2 mg/dL Sodium: 01/11/2025: 137 mmol/L Potassium: 01/11/2025: 4.2 mmol/L CO2: 01/11/2025: 23 mmol/L Chloride: 01/11/2025: 101 mmol/L BUN: 01/11/2025: 25 mg/dL Creatinine: 01/11/2025: 1.35 mg/dL (H) STOP-Bang Total Score: 2 DOS Physical Exam Medical history, medications, and allergies reviewed. Attestation: I endorse the findings of the anesthesia pre-evaluation assessment dated: 01/31/2025. Airway Exam: Mallampati: II Cervical ROM: FROM TM distance: normal Dental Exam: Appears intact Current state: Patient's current state is cooperative and interactive. Anesthesia Plan ASA 2 My patient is approved for the Anesthesia Controlled Medication protocol when under care of a COMPUTER LAB ASSISTANT Planned anesthesia: General TIVA and spinal Induction: Induction: intravenous. Postoperative Plan: Postoperative administration opioids intended. No postoperative mechanical ventilation intended. Patient's planned disposition post procedure is Outpatient. Informed Consent: Discussed plan with attending and COMPUTER LAB ASSISTANT. Anesthesia plan and risks discussed with patient. Consent and Attending signature: I and/or my designee have discussed the anesthesia plan, benefits, possible alternatives, parental presence at time of induction (if indicated), and clinically relevant risks that may include dental injury, unintentional awareness, and/or other complications. The patient and/or parent/legal guardian understand, and agree to proceed. All questions answered. documented in this encounter Plan of Treatment Not on file documented as of this encounter Procedures Procedure Name Priority Date/Time Associated Diagnosis Comments ANESTHESIA SPINAL BLOCK Routine 01/31/2025 8:52 AM CDT documented in this encounter Results * Spinal Block (01/31/2025 8:52 AM CDT) Narrative Liu Eubanks CRNA - 01/31/2025 8:52 AM CDT Liu Eubanks CRNA 01/31/2025 8:52 AM Spinal Block Patient location: OR Reason for block: primary anesthetic Staff: Placed by: COMPUTER LAB ASSISTANT:Liu Eubanks CRNA Procedure prep: Preprocedure checklist: patient identified, procedure contraindications assessed, site marked, procedure consent, surgical consent, IV checked, risks, benefits and alternatives discussed, monitors and equipment checked and timeout performed Patient position: sitting Procedure performed while patient: sedate with meaningful contact Monitoring: oximetry and blood pressure Prep solution: chlorhexadine/alcohol PPE: provider hat/mask, sterile gloves and sterile drape Skin infiltrated with lidocaine 1%: yes Spinal: Approach: midline Introducer used: no Location: L4-5 Spinal injection: CSF demonstrated, no aspiration of heme and no paresthesias noted Number of attempts: 2 Other sites attempted: L3-4 Spinal Needle: Needle type: Gracia Needle gauge: 22 G Needle length: 9 cm Assessment: Sensory deficit - left: full eval pending Sensory deficit - right: full eval pending Events: patient tolerated procedure well with no complications Josesito Rod DO ANESTHESIA ORDERABL ES Final Result documented in this encounter Visit Diagnoses Not on filedocumented in this encounter Administered Medications Inactive Administered Medications - up to 3 most recent administrations Medication Order MAR Action Action Date Dose Rate Site BUPivacaine 0.75% (MARCAINE SPINAL) preservative free injection in dextrose intrathecal, As needed, Starting on Phyllis 01/31/25 at 0846, Anesthesia Intra-op, Indications: Spinal AnesthesiaIndications:Spinal Anesthesia Given 01/31/2025 8:46 AM CDT 2 mL ceFAZolin (ANCEF) 2,000 mg/20 mL in sterile water (premix) 2,000 mg 2,000 mg, intravenous, at 400 mL/hr, Administer over 3 Minutes, Once, On Phyllis 01/31/25 at 0800, For 1 dose, Pre-Op, Administer within 60 minutes of incision., Indications: Prophylaxis, SurgicalIndications:Prophylaxis , Surgical Given 01/31/2025 9:30 AM CDT 2,000 mg dexAMETHasone (DECADRON) 4 mg/mL injection 8 mg 8 mg, intravenous, Administer over 2 Minutes, Once, On Phyllis 01/31/25 at 0800, For 1 dose, Intra-Op, Intra-op administration., Indications: Pain Treatment AdjunctIndications:Pain Treatment Adjunct Given 01/31/2025 8:53 AM CDT 8 mg dexmedeTOMIDine in 0.9% sodium chloride (PRECEDEX) 200 mcg/50 mL (4 mcg/mL) infusion (premix) intravenous, As needed, Starting on Phyllis 01/31/25 at 0953, Anesthesia Intra-op Given 01/31/2025 10:31 AM CDT 8 mcg Given 01/31/2025 9:57 AM CDT 8 mcg Given 01/31/2025 9:53 AM CDT 12 mcg fentaNYL (SUBLIMAZE) preservative free injection intravenous, As needed, Starting on Phyllis 01/31/25 at 0836, Anesthesia Intra-op Given 01/31/2025 8:36 AM CDT 100 mcg glycopyrrolate (ROBINUL) injection intravenous, Administer over 1 Minutes, As needed, Starting on Phyllis 01/31/25 at 0858, Anesthesia Intra-op Given 01/31/2025 8:58 AM CDT 0.2 mg Lactated Ringer's (LR) infusion 30 mL/hr, intravenous, Continuous, Starting on Phyllis 01/31/25 at 0800, Pre-Op New Bag 01/31/2025 9:20 AM CDT Rate/Dose Verify 01/31/2025 8:36 AM CDT 30 mL/h r New Bag 01/31/2025 7:39 AM CDT 30 mL/hr 30 mL/hr lidocaine (PF) (XYLOCAINE) 20 mg/mL (2 %) preservative free injection intravenous, As needed, Starting on Phyllis 01/31/25 at 0849, Anesthesia Intra-op Given 01/31/2025 8:49 AM CDT 100 mg midazolam (VERSED) 1 mg/mL preservative free injection intravenous, Administer over 2 Minutes, As needed, Starting on Phyllis 01/31/25 at 0836, Anesthesia Intra-op Given 01/31/2025 8:36 AM CDT 2 mg ondansetron (ZOFRAN) injection intravenous, Administer over 2 Minutes, As needed, Starting on Phyllis 01/31/25 at 0836, Anesthesia Intra-op Given 01/31/2025 8:36 AM CDT 8 mg phenylephrine (BIORPHEN) 0.5 mg/5 mL (100 mcg/mL) injection intravenous, As needed, Starting on Phyllis 01/31/25 at 0858, Anesthesia Intra-op Given 01/31/2025 10:56 AM CDT 200 mc g Given 01/31/2025 10:47 AM CDT 200 mcg Given 01/31/2025 9:26 AM CDT 100 mcg propofoL (DIPRIVAN) 10 mg/mL IV intravenous, As needed, Starting on Phyllis 01/31/25 at 0849, Anesthesia Intra-op Rate/Dose Change 01/31/2025 10:47 AM CDT 100 mcg/kg/min 51.96 mL/hr Rate/Dose Change 01/31/2025 9:38 AM CDT 150 mcg/kg/min 77. 94 mL/hr Rate/Dose Change 01/31/2025 9:33 AM CDT 100 mcg/kg/min 51. 96 mL/hr tranexamic acid (CYKLOKAPRON) 1,000 mg/100 mL (10 mg/mL) in sodium chloride (premix) 1,000 mg 1,000 mg (rounded from 1,299 mg = 15 mg/kg 86.6 kg), intravenous, at 400 mL/hr, Administer over 15 Minutes, Once, On Phyllis 01/31/25 at 0800, For 1 dose, Intra-Op, Administer at time of incision, Indications: Prophylaxis, SurgicalIndications:Prophylaxis, Surgical New Bag 01/31/2025 8:56 AM CDT 1,000 mg documented in this encounter Care Teams Clay Dry Press Mixer Operator Relationship Specialty Start Date End Date Zaina Terry MD PCP - General 06/15/16 Jonathan Wong MD Surgeon Orthopedic Surgery 08/26/17 Mark Nelson OD [address] [place] [address] Ophthalmology 08/26/17 Dk Willis MD [address] [place] [address] Consulting Physician Cardiology 11/01/17 Everardo Huertas MD [address] [facility] [place] [address] Consulting Physician Gastroenterology 04/11/18 Wayne Dougherty Jr., MD [address] [facility] [address] [place] [address] Consulting Physician Orthopedic Surgery 10/06/18 Kimberly Barone MD [address] [facility] [address] Ryder [address] [place] [address] Consulting Physician General Surgery 02/25/21 Turner Ramos MD [address] [facility] [address] Ryder [address] [place] [address] Consulting Physician Gastroenterology 02/27/21 Mark Lugo MD [address] [facility] [place] [address] Surgeon Orthopedic Surgery 07/17/21 Kristina Fonseca PA [address] [facility] [address] Ryder [address] [place] [address] Physician Graphics Software Engineer Orthopedic Surgery 07/22/21 David Maguire MD [address] [place] [address] Consulting Physician Otolaryngology 02/01/24 documented as of this encounter
--- OUTSIDE RECORDS SUMMARY | 2025-02-01 19:58 | XMS_ITS | Encounter Summary ---
Author Organization [facility] Healthcare Address [address] [place] [address] Care Team Providers Care X Ray Technician Name Role Phone Zaina Terry MD Primary Care Provider + [phone] Jonathan Wong MD Unavailable [phone] Mark Nelson OD Unavailable [phone] Dk Willis MD Unavailable [phone] Everardo Huertas MD Unavailable [phone] Ladonna Figueroa MD, Wayne Maguire Unavailable [phone]- [phone] Kimberly Barone MD Unavailable Turner Ramos MD Unavailable [phone] Mark Lugo MD Unavailable [phone] Kristina Fonseca Unavailable [phone] David Maguire MD Unavailable [phone] Reason for Visit * Auth/Cert (Routine) Specialty Diagnoses / Procedures Referred By Contac t Referred To Contact Diagnoses Primary osteoarthritis of right knee Primary osteoarthritis of right knee [M17.11] Procedures [place] ARTHRP KNE CONDYLE&PLATU MEDIAL&LAT COMPARTMENTS Right Total Knee Arthroplasty- Robotic, Depuy- Attune, Velys, Cooling Unit-[facility], 1 Liter Beta Rinse, Pt to Go Home Referral ID Status Reason Start Date Expiration Date Visits Re quested Visits Authorized [id number] 1 1 Encounter Details Date Type Department Care Team (Latest Contact Info) Description 01/31/2025 7:11 AM CDT - 01/31/2025 4:08 PM CDT Hospital Encounter [facility] Operating Room [address] [place] [address] Mark Lugo MD [address] [place] [address] [address] [place] [address] Primary osteoarthritis of right knee (Primary Dx) Discharge Disposition: Discharge to home or self care Social History Tobacco Use Types Packs/Day Years [...] on file Legal Sex Male 6:46 PM [employer] Gender Identity Not on file Sexual Orientation Straight 09/10/2020 8: 05 AM [employer] 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 on file Not on fi le documented as of this encounter Last Filed Vital Signs Vital Sign Reading Time Taken Comments Blood Pressure 120/80 01/31/2025 4:05 PM CDT Pulse 74 01/31/2025 4:05 PM CDT Temperature 36.2 C (97.1 F) 01/31/2025 4:05 PM CDT Respiratory Rate 20 01/31/2025 4:05 PM CDT Oxygen Saturation 97% 01/31/2025 4:05 PM CDT Inhaled Oxygen Concentration - - Weight 86.6 kg (190 lb 14.7 oz) 01/31/2025 7:17 AM CDT Height 175.3 cm (5' 9 ) 01/31/2025 7:17 AM CDT Body Mass Index 28.19 01/31/2025 7:17 AM CDT documented in this encounter Functional Status * Audit-C Score Answer Date of Assessment Author 0 01/31/2025 7:46 AM CDT Kranthi Ann RN * Question Answer Date of Assessment Author Q1: How often do you have a drink containing alcohol? Never 01/31/2025 7:46 AM CDT Anupam Madison RN Q2: How many drinks containing alcohol do you have on a typical day when you are drinking? Patient does not drink 01/31/2025 7:46 AM CDT Kranthi Madison RN Q3: How often do you have six or more drinks on one occasion? Never 01/31/2025 7:46 AM CDT Anupam Madison RN documented as of this encounter Discharge Instructions * Attachments The following attachments cannot be sent through Care Everywhere. * Spinal Anesthesia (Discharge Care) (Chinese) * General Anesthesia (Discharge Care) (Chinese) * How to Use an Incentive Spirometer (Discharge Care) (Chinese) * How to Choose and Use a Walker ([employer]) (Chinese) * How to Use a Gait Belt ([employer]) (Chinese) * Ascorbic Acid (Vitamin C) (By mouth) (Chinese) * Aspirin (By mouth) (Chinese) * Celecoxib (By mouth) (Chinese) * Iron Supplements (By mouth) (Chinese) * Ondansetron (By mouth, Into the mouth) (Chinese) * Oxycodone/Acetaminophen (By mouth) (Chinese) * Laxative, Stimulant Combination (By mouth) (Chinese) documented in this encounter Medications at Time of Discharge cholecalciferol (VITAMIN D-3) 50,000 unit capsuleIndicatio ns:Vitamin D deficiency Take 1 capsule (50,000 Units total) by mouth once a week 03/14/2024 citalopram (CeleXA) 20 mg tabletIndication s:Mood disorder,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) TAKE 1 TABLET BY MOUTH DAILY 90 tablet 1 10/26/2024 traZODone (DESYREL) 50 mg tabletIndication s:Insomnia due to medical condition TAKE 1 TABLET (50 MG TOTAL) BY MOUTH NIGHTLY NEEDED FOR SLEEP 90 tablet 1 01/23/2025 ascorbic acid, vitamin C, 500 mg capsule Take 500 mg by mouth daily 30 capsule 01/31/2025 aspirin 81 mg enteric coated tablet Take 1 tablet (81 mg total) by mouth 2 (two) times a day 84 tablet 01/31/2025 celecoxib (CeleBREX) 200 mg capsuleIndicatio ns:Postoperative Acute Pain Take 1 capsule (200 mg total) by mouth 2 (two) times a day 84 capsule 01/31/2025 ferrous sulfate 325 mg (65 mg of elemental iron) tabletIndication s:Iron Deficiency Anemia Take 1 tablet (325 mg total) by mouth daily with breakfast 30 tablet 01/31/2025 ondansetron (ZOFRAN) 8 mg tabletIndication s:Prevention of Post-Operative Nausea and Vomiting Take 1 tablet (8 mg total) by mouth every 8 (eight) hours as needed for nausea or vomiting 20 tablet 2 01/31/2025 oxyCODONE-acetam inophen (PERCOCET) 5-325 mg per tabletIndication s:Pain Take 1-2 tablets by mouth every 4 (four) hours as needed for pain 40 tablet 01/31/2025 senna-docusate (PERICOLACE) 8.6-50 mg Take 1 tablet by mouth 2 (two) times a day as needed for constipation 60 tablet 2 01/31/2025 documented as of this encounter Ordered Prescriptions Prescription Sig Dispense Quantity Refills Last Filled Start Date End Date oxyCODONE-acetami nophen (PERCOCET) 5-325 mg per tabletIndications :Pain Take 1-2 tablets by mouth every 4 (four) hours as needed for pain 40 tablet 01/31/2025 senna-docusate (PERICOLACE) 8.6-50 mg Take 1 tablet by mouth 2 (two) times a day as needed for constipation 60 tablet 2 01/31/2025 ascorbic acid, vitamin C, 500 mg capsule Take 500 mg by mouth daily 30 capsule 01/31/2025 5 ondansetron (ZOFRAN) 8 mg tabletIndications :Prevention of Post-Operative Nausea and Vomiting Take 1 tablet (8 mg total) by mouth every 8 (eight) hours as needed for nausea or vomiting 20 tablet 2 01/31/2025 ferrous sulfate 325 mg (65 mg of elemental iron) tabletIndications :Iron Deficiency Anemia Take 1 tablet (325 mg total) by mouth daily with breakfast 30 tablet 01/31/2025 celecoxib (CeleBREX) 200 mg capsuleIndication s:Postoperative Acute Pain Take 1 capsule (200 mg total) by mouth 2 (two) times a day 84 capsule 01/31/2025 aspirin 81 mg enteric coated tablet Take 1 tablet (81 mg total) by mouth 2 (two) times a day 84 tablet 01/31/2025 documented in this encounter Discharge Disposition Disposition Code Departure Means Destination Comment s Discharge to home or self care documented in this encounter Progress Notes * Maye Diaz, OT - 01/31/2025 3:25 PM CDT Occupational Therapy Evaluation & Initial Discharge Past Medical History: Diagnosis Date Adjustment disorder Anemia due to GI blood loss 02/22/2021 BPH (benign prostatic hyperplasia) CKD (chronic kidney disease) stage 3, GFR 30-59 ml/min ([facility]) 03/02/2020 Creatinine 1.31 new finding as of annual physical February 2020 Depression GERD (gastroesophageal reflux disease) Occult blood positive stool Pneumonia Pruritus 03/02/2014 Chronic pruritus Ventricular tachycardia ([facility]) loop recorder in 2019 and then removed 01/31/25 1198 General Chart Reviewed Yes Session Type Evaluation OT Received On 01/31/25 Safe Environment Arm band checked;Patient found in supine;Gait belt utilized for all out of bed mobility Subjective Agreeable to Therapy Additional Pertinent History R TKA Family/Caregiver Present Yes () Occupational Therapy-Patient Goal Return home safely today Precautions Precautions Fall risk;Knee Weight Bearing Restrictions Yes RLE Weight Bearing WBAT Precaution Comments verbally reviewed WBAT RLE prior to mobility, pt verbalizes understanding &demonstrates good understanding Home Living Type of Home House Home Layout One level Home Access Stairs to enter with rails Entrance Stairs-Number of Steps 2 Bathroom Shower/Tub Walk-in shower with threshold Bathroom Toilet Raised Bathroom Equipment Grab bars in shower/tub;Shower chair;Hand-held shower Home Mobility Equipment-Available Wheeled walker Home Mobility Equipment-Currently Using None Home ADL Equipment-Currently Using None Prior Function Level of [place] Independent with ADLs;Independent functional transfers;Independent with ambulation;Independent with homemaking with ambulation Lives With Spouse Receives Help From Spouse/Significant other Driving Yes Mode of Transportation Car;Driven by self ADL Assistance Independent Instrumental ADL (IADL) Assistance Independent 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 Pt able to doff garfield gripper socks, thread BLEs through pants, ,don garfield shoes, and pull waistband over hips) LE Dressing: Assistance with Don/doff L sock LE Dressing: Equipment Utilized Other (Comment) (FWW for steadying when in standing) Toileting Toileting: Where assessed Toilet Toileting: Equipment utilized Other (Comment) (grab bar, FWW) Toileting: Level of assistance Contact Guard Assist Toileting: Assistance with Safety;Balance (CGA for steadying as pt stands to manage clothing. Pt still numb in perineal area--incontinent of urine) Toilet Transfers Toilet Transfer From Bed Toilet Transfer Type To Toilet Transfer to Standard toilet Toilet Transfer Technique Ambulating Toilet Transfer: Equipment Wheeled walker Toilet Transfers Contact guard Pain Assessment Pain Assessment No/denies pain Cognition Overall Cognitive Status WFL Orientation Oriented X4 (person, place, time, situation) Compliance/Behavior Easy to engage Sensation Numbness/Tingling Yes (garfield feet, perineal area) Balance Balance Yes Static Sitting Balance Static Sitting-Balance Support Bilateral upper extremity supported Static Sitting-Sitting Surface Chair Static Sitting-Level of Assistance Independent Dynamic Sitting Balance Dynamic Sitting-Balance Support Unilateral upper extremity supported;No upper extremity supported;Feet supported Dynamic Sitting-Balance Forward lean;Reaching for objects;Reaching across midline (during LBD) Dynamic Sitting-Sitting Surface Chair Dynamic Sitting-Level of Assistance Independent Static Standing Balance Static Standing-Balance Support Bilateral upper extremity supported (FWW) Static Standing-Standing Surface Floor Static Standing-Level of Assistance Contact guard Bed Mobility Bed Mobility Yes Bed Mobility 1 Bed Mobility From 1 Supine Bed Mobility Type 1 To Bed Mobility to 1 Edge of bed Level of Assistance 1 Modified Independent (HOB elevated, use of bed rails) Transfers Transfer Yes Transfer 1 Transfer From 1 Sit;Chair with arms;Bed Transfer Type 1 To and from Transfer to 1 Stand Technique 1 Sit to stand;Stand to sit Transfer Device 1 Wheeled walker Transfer Level of Assistance 1 Contact Guard Assist Transfers 2 Transfer From 2 Toilet Transfer Type 2 To Transfer to 2 Chair with arms Technique 2 Ambulation Transfer Device 2 Wheeled walker Transfer Level of Assistance 2 Contact Guard Assist Other Comments Comments Pt issued handout for TedHose donning technique and verbally reviewed purpose of Tedhose, wear schedule, and care instructions. Pt demonstrates good understanding. Pt's spouse observes technique and verbalizes good understanding. Reviewed home safety checklist with pt--pt & spouse verbalize good understanding. Pt educated on benefit of staying seated on shower chair and safety techniques during showering. Pt educated on walker safety tips, including not carrying objects while trying to push walker at the same time and proper hand placement with walker during sit<>stands. Ptverbalizes/demonstrates good understanding. Educated pt on modified dressing techniques including remaining seated for UBD, remaining seated to thread LEs through pants, and threading surgical leg first when donning. Pt verbalizes & demonstrates good understanding. Safe Environment End of Therapy Session Safe Environment End of Therapy Session Patient left in chair (pt left with spouse present & PT Jessika present to begin PT eval) Assessment Prognosis Excellent Problem List Decreased balance;Decreased ADL independence;Decreased IADL independence Plan Plan Discharge;If this is the last note, consider this the discharge summary Recommendation/Plan OT Recommendation Home with family;Home with intermittent assist OT Frequency during current admission One-time visit (Discharge from this service) OT Evaluation Complete Yes OT Time Calculation OT Start Time 1355 OT Stop Time 1449 OT Time Calculation (min) 54 min * Jessika Juarez, PT - 01/31/2025 3:15 PM CDT Physical Therapy 01/31/25 1450 General Chart Reviewed Yes Session Type Evaluation Safe Environment Patient found in supine;Arm band checked Physical Therapy-Patient Goal return home Precautions Precautions Fall risk Home Living Type of Home House Home Layout One level Home Access Stairs to enter with rails Entrance Stairs-Number of Steps 2 Home Mobility Equipment-Available Wheeled walker Prior Function Level of [place] Independent with ADLs;Independent functional transfers;Independent with ambulation Fall within the last 6 months No Pain Assessment Pain Assessment No/denies pain Cognition Orientation Oriented X4 (person, place, time, situation) Balance Balance Yes Static Sitting Balance Static Sitting-Balance Support Bilateral upper extremity supported Static Sitting-Sitting Surface Bed Static Sitting-Level of Assistance Independent Static Standing Balance Static Standing-Balance Support Bilateral upper extremity supported Static Standing-Standing Surface Floor Static Standing-Level of Assistance Contact guard Bed Mobility 1 Bed Mobility From 1 Supine Bed Mobility Type 1 To Bed Mobility to 1 Edge of bed Level of Assistance 1 Independent Transfer 1 Transfer From 1 Bed Transfer Type 1 To and from Transfer to 1 Stand Technique 1 Sit to stand;Stand to sit Transfer Device 1 Wheeled walker Transfer Level of Assistance 1 Contact Guard Assist Ambulation 1 Distance (ft) 1 100 Surface 1 Level tile Device 1 Wheeled walker Assistance 1 Contact Guard Assist Gait: Requires assist with 1 Maintaining balance Gait Deviations 1 Stance time - decreased;Step length - decreased;Turns - difficulty;Weight bearingthrough UE???s - increased Quality of Gait 1 steady Stairs Stairs Yes Stair Comments edu on up w the good/down the bad strategy. completed 12 LUE Assessment LUE Assessment WFL RLE Assessment RLE Assessment X RLE Comments gross 0-90, 4/5 PT Treatment/Exercise Comments PT Treatment/Exercise Comments TKA exercise demo, edu on, provided handout. edu on use of 2ww for safety. edu on ice/elevation for pain relief. verb understanding Other Comments Other PT Comments pt is a currently working PT Basic Mobility - 6 Click How much difficulty does the patient have: Turning over in bed 4 How much difficulty does the patient currently have: Sitting down and standing up from a chair witharms? 4 How much difficulty does the patient have: Moving from lying on back to sitting on the side of the bed? 4 How much difficulty does the patient have: Moving to and from a bed to a chair including wheelchair? 4 How much help does the patient currently need: Walk in hospital room? 4 How much help from another person does the patient currently need: Climbing 3-5 steps with a railing? 3 Total 6 Click Score (range 6-24) 23 Score Interpretation 50.88 Safe Environment End of Therapy Session Safe Environment End of Therapy Session Patient left in chair;RN notified;Call light within reach;Overbed table within reach Assessment Prognosis Excellent Plan Plan Plan of care initiated;If this is the last note, consider this the discharge summary Recommendation/Plan PT Recommendation/Plan Outpatient PT;Home with intermittent assist PT Evaluation Complete Yes PT Time Calculation PT Start Time 1450 PT Stop Time 1515 PT Time Calculation (min) 25 min documented in this encounter H&P Notes * Mark Lugo MD - 01/31/2025 7:43 AM CDT I have reviewed the H&P, examined the patient, and endorse the findings as written. Plan of Care : Based on the above findings, I consider Matthew Tian to be an acceptable risk for : Procedure(s): Right Total Knee Arthroplasty- Robotic, Depuy- Attune, Velys, Cooling Unit-[facility], 1 Liter BetaRinse, Pt to Go Home Source Note - Mark Lugo MD - 01/10/2025 9:45 AM CDT Images from the original note were not included. FOLLOW UP VISIT Subjective CHIEF COMPLAINT He had concerns including Pain of the Right Knee. HISTORY OF PRESENT ILLNESS This is a pleasant 74-year-old gentleman with a chief complaint of right knee pain. He has known severe advanced right knee tricompartmental osteoarthritis and has failed extensive conservative management including anti-inflammatories, pain medication, injections, activity modification, and more. He has diminished quality of life and pain with activities of daily living and is requesting right total knee replacement. MEDICATIONS He has a current medication list which includes the following prescription(s): cholecalciferol, citalopram, and trazodone. REVIEW OF SYSTEMS Review of Systems Constitutional: Negative for appetite change and fever. HENT: Negative for drooling, facial swelling and voice change. Eyes: Negative for discharge. Respiratory: Negative for apnea and wheezing. Cardiovascular: Negative for chest pain and palpitations. Gastrointestinal: Negative for abdominal distention and abdominal pain. Endocrine: Negative for polydipsia. Genitourinary: Negative for flank pain. Musculoskeletal: Positive for arthralgias and myalgias. Skin: Negative for color change and rash. Neurological: Negative for speech difficulty. Hematological: Does not bruise/bleed easily. Psychiatric/Behavioral: Negative for hallucinations. Objective PHYSICAL EXAM BP 122/86 Pulse 62 Wt 87.1 kg (192 lb) BMI 28.35 kg/m?? Right knee Inspection Swelling: present Surgical scar/wound: absent. Skin temperature: normal Alignment: varus Gait: antalgic Palpation Tenderness: present. The tenderness is located in the patella and tibial tubercle. Patellar tracking: normal Crepitus: positive Patella grind: positive Range of motion The patient has reduced range of motion of the right knee. Stability The patient has normal AP and ML stability of the right knee. Strength The patient has 5/5 strength thoughout right knee. Neurovascular The patient has normal vascular on the right side of their body. The patient has normal sensation on the right side of their body. Special tests Patellar apprehension: 1+ REVIEW OF X-RAYS/STUDIES/LABS Severe advanced right knee tricompartmental osteoarthritis with [id number] contact, osteophyte formation, subluxation. Assessment/Plan Matthew was seen today for pain. Diagnoses and all orders for this visit: Pre-op testing - CBC with auto differential; Future - Comprehensive metabolic panel; Future - Hemoglobin A1c; Future - Urinalysis reflex to microscopic and culture Urine, clean voided; Future - ECG 12 lead; Future - XR Chest PA Lateral 2 View; Future PLAN I personally discussed the nature of the patient's arthritis with the patient in clinic today. The patient has tried extensive conservative treatment with minimal relief. Physical therapy is not clinically indicated for this patient at this time because the knee arthritis is severe and symptoms arelikely to be exacerbated by physical therapy, rather than alleviated. I recommended total knee replacement in clinic today and personally discussed the risks and benefits of total knee replacement with the patient. The risks that were discussed include, but are not limited to, delayed wound healing, infection, blood clot in the form of DVT or Pe, periprosthetic fracture, persistent pain and dysfunction, need for additional surgery, implant wear and failure, aseptic loosening, perioperative myocardial infarction, stroke, pneumonia, and even . Patient understands these risks and agreed to proceed with the surgery as described above. All questions and concerns were addressed with the patient prior to informed surgical consent being established in the office today. The patient will follow up for total knee arthroplasty on the date selected for their surgery. Patient understands this is considered ruthann r surgery and as such carries significant risk. Mark Lugo MD documented in this encounter Miscellaneous Notes * Op Note - Mark Lugo MD - 01/31/2025 9:32 AM CDT Preoperative diagnosis: right knee osteoarthritis Postoperative diagnosis: Same as Preoperative diagnosis Procedure: right VELYS robotic assisted total knee arthroplasty , CR, pressfit, midvastus approach Surgeon: Mark Luog MD Media Marketing Specialist: Rodney Cai PA-C, NP Anesthesia: spinal Tourniquet time: 0 minutes Estimated blood loss: approximately 150 cc Condition: stable to PACU Implanted components Implant Name Type Inv. Item Serial No. Junior Data Analyst Lot No. LRB No. Used Action [employer] Attune Cruciate Retain Cementless Knee Right 7 Component Femoral [id number] [employer] Attune Cruciate Retain Cementless Knee Right 7 Component [id number] [employer] [id number] Right 1 Implanted [employer] Attune Fb Tib Base Sz 7 Por [id number] [employer] Attune Fb Tib Base Sz 7 Por [id number] [employer] [id number] Right 1 Implanted [employer] Insert Tibial Knee Fixed Rm Posterior Stabilized Attune 8mm Size 7 Polyethylene [id number] - [id number] [employer] Insert Tibial Knee Fixed Rm Posterior Stabilized Attune 8mm Size 7 Polyethylene [id number] [employer] [id number] Right 1 Implanted Technique: I met the patient in the preoperative holding room and signed the appropriate knee. Informed consent was obtained. A consent form was signed on the chart. The patient was transported to the operatingroom. [facility] lower extremity was prepped and draped in the usual sterile fashion. Preoperative antibiotics were given. A time-out was carried out. A longitudinal incision was made over the anterior aspect of the knee. Dissection was carried out to the subcutaneous tissue. A less invasive mid- vastus approach was utilized. The extensor mechanism was mobilized laterally. A medial release was performed. The fat pad, ACL, medial meniscus, and lateral meniscus were excised. The tibial sensor pins were then placed and the tibial sensor was attached. The femoral sensor pinswere then placed and the femoral sensor was attached. With the sensors in view of the camera, the hip was taken through a range of motion. Specific points then identified with the manual sensor including a reference point on the femur, a reference point on the tibia, the medial and lateral malleoli of the ankle, the midpoint of the tibia, the midpoint of the medial plateau of the tibia, the midpoint of the lateral plateau of the tibia, the rotation line of the tibia, white sides line of the femur, the midpoint of the distal femur, painting of the femoral regions including the distal medial co ndyle, distal lateral condyle, posterior medial condyle, posterior lateral condyle, and the anterior cortical line of the femur. Once these points were obtained and registered, the knee was brought into extension and brought through varus and valgus stress and then brought to 90?? and brought to varus and valgus stress. Existing numbers were generated. These were modified accordingly to optimize stability of the knee and a plan was generated. The robot was programmed and brought in to the field for the femoral cuts beginning with the distalfemoral cut followed by the anterior cut, anterior chamfer, posterior cut, and posterior chamfer. Retractors were adjusted and the robot was brought into plane for the tibial cut which was completed. The dog bone was then utilized to confirm appropriate stability in extension and flexion with equal and rectangular and properly tension gaps. Once confirmed, the tibial and femoral arrays were removed and the 2 tibial and 2 femoral arrays pins were removed. The robot was then brought proximally out of the surgical field. The tibia was sized and the base plate was rotated into into appropriate position. The tibia was then pinned, drilled and punched. The four peripheral lug holes were then drilled. The appropriately sized trial insert was placed and the knee was reduced into extension. The patella was everted and all osteophytes were removed. Trialing revealed appropriate range of motion stability and patellar tracking. Therefore old all trials were removed the knee was Betadine lavaged thoroughly irrigated and injected with standard analgesic cocktail in the periarticular soft tissues. A bone plug was placed in femoral canal. The knee was flexed and all osteotomized surfaces were exposed and thoroughly irrigated. Final components were then impacted into place beginning with the fixed bearing tibial base plate followed by the CR femoral component and placement of the insert. The knee was reduced into extension.. Thorough irrigation was carried out. At this point meticulous hemostasis was ensured prior to closure, using the Aqua Mantis. Thorough irrigation was carried out and final trialing revealed appropriate range of motion stability and tracking. Therefore the Mid-vastus arthrotomy was closed with interrupted #1 Vicryl reinforced with a #1 Strata Fix followed by a 2.0 Quill in the subcutaneous tissue and a 3.0 Monocryl subcuticular stitch in the skin reinforced with Steri- Strips. Sterile bandage was applied the patient was transported to the PACU in good condition having had no complications during the procedure. Sponge needle and instrument counts were all correct at the end of the case. Postoperative plan 1. Mechanical and chemical DVT prophylaxis as indicated 2. Weightbearing as tolerated with physical therapy starting today. 3. Standard pain protocol Discharged home when all criteria are met. * Perioperative Nursing Note - Batsheva Koch RN - 01/24/2025 9:51 AM CDT Images from the original note were not included. Pre Anesthesia Testing Perioperative Nursing Note Telephone Preoperative Evaluation - TELEPHONE ONLY, NO PHYSICAL EXAM - [facility] Date: 01/24/25 [facility] RN completed assessment with the patient. Matthew Tian is a 74 y.o. male Right Total Knee Arthroplasty- Robotic, Depuy- Attune, Velys, Cooling Unit-[facility], 1 Liter BetaRinse, Pt to Go Home (Right: Knee) Pre-Op Diagnosis Codes: * Primary osteoarthritis of right knee [M17.11] There were no vitals filed for this visit. Social History Tobacco Use Smoking Status Never Smokeless Tobacco Never Substance and Sexual Activity Drug Use No Alcohol Use Q2: How many drinks containing alcohol do you have on a typical day when you are drinking?: Patientdoes not drink Past Medical History: Diagnosis Date Adjustment disorder Anemia due to GI blood loss 02/22/2021 BPH (benign prostatic hyperplasia) CKD (chronic kidney disease) stage 3, GFR 30-59 ml/min ([facility]) 03/02/2020 Creatinine 1.31 new finding as of annual physical February 2020 Depression GERD (gastroesophageal reflux disease) Occult blood positive stool Pneumonia Pruritus 03/02/2014 Chronic pruritus Ventricular tachycardia ([facility]) loop recorder in 2019 and then removed [...] HIP ARTHROPLASTY Right 07/22/2021 No Known Allergies CURRENT MEDICATIONS Med List Status: Nurse Complete Set By: Batsheva Koch RN at 01/24/2025 9:48 AM Taking? Last Dose Start Date End Date Provider cholecalciferol (VITAMIN D-3) 50,000 unit capsule -- 03/14/24 -- Zaina Terry MD Take 1 capsule (50,000 Units total) by mouth once a week Notes: Least expensive available on [facility] citalopram (CeleXA) 20 mg tablet -- 10/26/24 -- Zaina Terry MD TAKE 1 TABLET BY MOUTH DAILY traZODone (DESYREL) 50 mg tablet -- 01/23/25 -- Zaina Terry MD TAKE 1 TABLET (50 MG TOTAL) BY MOUTH NIGHTLY NEEDED FOR SLEEP Implants Type Not Specified [employer] [id number] [place] 56mm Sector Hip Shell Acetabular Gription Sterile Latex Free - [id number] - Implanted (Right) Hip Inventory item: [employer] [place] 56mm Sector Hip Shell Acetabular Gription Sterile Latex Free [id number] Model/Cat number: [id number] Junior Data Analyst: [employer] Lot number: [id number] Size: 56mm OD As of 07/22/2021 Status: Implanted [employer] [id number] [place] 56mm 36mm Hip Neutral Liner Acetabular Altrx Sterile Latex Free - [id number] - Implanted (Right) Hip Inventory item: [employer] [place] 56mm 36mm Hip Neutral Liner Acetabular Altrx Sterile Latex Free [id number] Model/Cat number: [id number] Junior Data Analyst: [employer] Serena [employer] Lily Lot number: [id number] Size: NEUTRAL 36MM ID/56MMOD As of 07/22/2021 Status: Implanted [employer] [id number] [place] 6.5mm 35mm Acetabular Cancellous Screw Bone Sterile - [id number] - Implanted (Right) Hip Inventory item: [employer] [place] 6.5mm 35mm Acetabular Cancellous Screw Bone [id number] Model/Cat number: [id number] Junior Data Analyst: [employer] Lot number: [id number] Size: 6.5MM X 35MM As of 07/22/2021 Status: Implanted [employer] [id number] Actis L107 Mm Collar Hip 6 High Offset Stem Femoral - [id number] -Implanted (Right) Hip Inventory item: [employer] Actis L107 Mm Collar Hip 6 High Offset Stem Femoral [id number] Model/Cat number: [id number] Junior Data Analyst: [employer] Lot number: [id number] Size: 6 high collar As of 07/22/2021 Status: Implanted [employer] [id number] Articul/[place] 36mm Cementless Hip +5mm 12/14 [place] Femoral Latex Free - [id number] - Implanted (Right) Hip Inventory item: [employer] Articul/geneva 36mm Cementless Hip +5mm 09/29 [place] Femoral Latex Free [id number] Model/Cat number: [id number] Junior Data Analyst: [employer] Lot number: [id number] Size: +5.0/36mm karley, 09/29dia As of 07/22/2021 Status: Implanted [employer] Bard Mesh Surgical Inguinal Hernia Synthetic Patch 3dmax 4x6in [id number] - [id number] - Implanted (Left) Abdomen Inventory item: [employer]/C R BARD Mesh Surgical Inguinal Hernia Synthetic Patch 3dmax 4x6in [id number] Model/Cat number: [id number] Junior Data Analyst: [employer] Lot number: [id number] As of 11/30/2024 Status: Implanted [employer] Bard Mesh Surgical Mid Anatomical Synthetic Patch 3dmax 4x6in [id number] - [id number] -Implanted (Right) Abdomen Inventory item: [employer]/C R BARD Mesh Surgical Mid Anatomical Synthetic Patch 3dmax 4x6in [id number]/Cat number: [id number] Junior Data Analyst: [employer] Lot number: [id number] As of 11/30/2024 Status: Implanted TRAVEL/EXPOSURE Travel Screening Have you traveled outside the [place] in the last 6 months?: No SCREENINGS STOP-Bang Total Score: 2 NUTRITION PATIENT CARE PLANNING ADDITIONAL COMMENTS/ FOLLOW UP Patient verbalized understanding of all pre- operative instructions for his upcoming right knee replacement surgery on 01-31-25. * Pre-Procedure Instructions - Batsheva Koch RN - 01/24/2025 9:48 AM CDT We are pleased that you and your doctor have chosen [facility] for your surgery. We hope that the following information will help make your visit a pleasant one. Surgery Date: 01/31/2025 Surgery Department will call you on Tuesday01-30-25 after 3 pm with your arrival time. Before your surgery: Notify your doctor of ANY change in your health such as a cold, sore throat, fever, any infection or a change in the problem for which you are having your surgery. Follow any instructions given to you by your doctor or surgeon. Check with your doctor if you need to STOP taking: Aspirin (ordered by your doctor) Plavix Coumadin One week before surgery STOP taking: All herbal supplements Aspirin (not ordered by your doctor) Aleve, Advil, Motrin, Ibuprofen, or other similar medications (Tylenol is okay). 24 hours before your surgery: No smoking or alcoholic drinks. Night before your surgery: Do not eat or drink anything after midnight. Follow surgeon's instructions for anti-bacterial shower night before and morning of surgery. Day of surgery: Do not swallow any water when you brush your teeth. Take medications as instructed with a small sip of water. Pre-Surgery Instructions Medication Instructions cholecalciferol (VITAMIN D-3) 50,000 unit capsule Stop taking 7 days prior to surgery citalopram (CeleXA) 20 mg tablet Take as prescribed traZODone (DESYREL) 50 mg tablet Take as prescribed Use no make-up, nail kyrgyz, lotions, oils or powders on your skin. Wear comfortable clothes that will not be tight in the area of your surgery. Leave all valuables and jewelry (including all body piercing jewelry) at home. Please bring your a photo ID and insurance cards with you. Check in at the Registration Desk downstairs in the Ambulatory Surgery Department. You will come inthe main entrance and go down the kapadia until you see the [employer]/coffee shop, there will be elevators to the right, take those down to LL1. You will exist the elevators to the right and go down thehall and you will pass Medical Imaging on the left and we will be the next department on the right,you will see the sign above that says Ambulatory Surgery Department check-in. After your Outpatient Surgery: You must have a responsible adult to drive you home, you will not be allowed to drive or take a cabhome. We recommend you have someone stay with you for 24 hours after your surgery. What to bring if you are spending the night with us: Bring toiletry items such as: robe, slippers, toothbrush, toothpaste, brush or comb. Bring contact lens, hearing aids, glass cases and denture container if you use any of these items. The hospital will provide you with a gown. Questions or concerns: If you have any questions or concerns regarding your procedure, contact your surgeon as soon as possible. If you have questions regarding your Pre-Admission Testing, please call us. We can be reached at the number posted at the top of the page. documented in this encounter Plan of Treatment Pending Results Name Type Priority Associated Diagnoses Date /Time Surgical pathology Pathology and Cytology Routine Primary osteoarthritis of right knee 01/31/2025 1:34 PM CDT Scheduled Orders Name Type Priority Associated Diagnoses Orde r Schedule Surgical pathology Pathology and Cytology Timed Primary osteoarthritis of right knee Release Upon Ordering for 1 Occurrences starting 01/31/2025 documented as of this encounter Procedures Procedure Name Priority Date/Time Associated Diagnosis Comments XR KNEE RIGHT 1 OR 2 VIEWS IP Routine 01/31/2025 11:32 AM CDT APTT STAT 01/31/2025 7:38 AM CDT PROTIME-INR STAT 01/31/2025 7:38 AM CDT documented in this encounter Results * XR Knee Right 1 or 2 View (01/31/2025 11:32 AM CDT) Anatomical Region Laterality Modality Lower Extremities, Knee Right Computed Radiography 02/01/2025 12:0 4 PM CDT Narrative 02/01/2025 12:05 PM CDT EXAM DESCRIPTION: XR KNEE RIGHT 1 OR 2 VIEWS REASON FOR STUDY: in pacu s/p right tka. Right knee osteoarthritis. Post op right knee replacement FINDINGS: Two views submitted with comparison 06/01/2024. 2 component right knee arthroplasty is in near anatomic alignment. No acute fracture. Soft tissue gas and swelling are present. IMPRESSION: Interval 2 component right knee arthroplasty in near anatomic alignment. THIS IS AN ELECTRONICALLY VERIFIED FINAL REPORT 02/01/2025 12:05 PM - Electronically signed by Chon Castillo M.D. MF: CHAPO Report ID: [id number] Reading Location: [id number] Procedure Note Chon Castillo MD - 02/01/2025 EXAM DESCRIPTION: XR KNEE RIGHT 1 OR 2 VIEWS REASON FOR STUDY: in pacu s/p right tka. Right knee osteoarthritis. Post op right knee replacement FINDINGS: Two views submitted with comparison 06/01/2024. 2 component right knee arthroplasty is in near anatomic alignment. Noacute fracture. Soft tissue gas and swelling are present. IMPRESSION: Interval 2 component right knee arthroplasty in near anatomicalignment. THIS IS AN ELECTRONICALLY VERIFIED FINAL REPORT 02/01/2025 12:05 PM - Electronically signed by Chon Castillo M.D. MF: CHAPO Report ID: [id number] Reading Location: [id number] Vandana LEIVA IMG XR PROCEDURES Fin al Result * aPTT (01/31/2025 7:38 AM CDT) aPTT 34 28 - 38 sec [facility] ([place]) Comment: Interpretive Data Heparin therapeutic range: 66.0 - 100.0 seconds. Range based on correlation with therapeutic heparin activity range of 0.3 - 0.7 Units/mL. Current interpretive data was last revised on 2023. Blood 01/31/2025 7:38 AM CDT 01/31/2025 7:45 AM CDT Mark Lugo MD LAB BLOOD ORDERABLES Fin al Result [facility] ([place]) 1 [facility] Department [place] [address] * Protime-INR (01/31/2025 7:38 AM CDT) PT 10.8 9.7 - 13.0 sec [facility] ([place]) INR 1.00 0.90 - 1.20 [facility] ([place]) Comment: Interpretive data Oral anticoagulant therapeutic ranges: Venous thromboembolism prophylaxis or treatment: 2.0-3.0 CARDIOLOGY Standard range: 2.0-3.0 High-intensity range: 2.5-3.5 Refer to indication-specific guidelines for appropriate target ranges for prosthetic heart valve replacement. Current interpretive data was last revised on 2019. Blood 01/31/2025 7:38 AM CDT 01/31/2025 7:45 AM CDT us Mark Lugo MD LAB BLOOD ORDERABLES Fin al Result [facility] ([place]) 1 [facility] Department [place] [address] documented in this encounter Visit Diagnoses Diagnosis Primary osteoarthritis of right knee- Primary Primary osteoarthritis of right knee documented in this encounter Admitting Diagnoses Diagnosis Primary osteoarthritis of right knee documented in this encounter Administered Medications Inactive Administered Medications - up to 3 most recent administrations Medication Order MAR Action Action Date Dose Rate Site acetaminophen (TYLENOL) tablet 1,000 mg 1,000 mg, oral, Once, On Phyllis 01/31/25 at 0800, For 1 dose, Pre-Op, Indications: Pre-Emptive AnalgesiaIndications:Pre-Em ptive Analgesia Given 01/31/2025 7:46 AM CDT 1,000 mg ceFAZolin (ANCEF) 2,000 mg/20 mL in sterile water (premix) 2,000 mg 2,000 mg, intravenous, at 400 mL/hr, Administer over 3 Minutes, Every 8 hours, First dose on Phyllis 01/31/25 at 1730, For 2 doses, Beginning 8 hours after last rica-operative dose., Indications: Prophylaxis, SurgicalIndications:Prophyl axis, Surgical Given 01/31/2025 3:47 PM CDT 2,000 mg 400 mL/hr celecoxib (CeleBREX) capsule 200 mg 200 mg, oral, Once, On Phyllis 01/31/25 at 0800, For 1 dose, Pre-Op, Indications: PainIndications:Pain Given 01/31/2025 7:46 AM CDT 200 mg ePHEDrine injection 15 mg 15 mg, intravenous, Administer over 5 Minutes, Every 10 min PRN, sbp<90, Starting on Phyllis 01/31/25 at 1132, For 3 doses, Phase I Given 01/31/2025 11:55 AM CDT 15 mg Given 01/31/2025 11:35 AM CDT 15 mg ketorolac (TORADOL) 30 mg/mL injection 15 mg 15 mg, intravenous, Every 6 hours, First dose on Phyllis 01/31/25 at 1415, For 2 doses, Indications: PainIndications:Pain Given 01/31/2025 1:55 PM CDT 15 mg Lactated Ringer's (LR) infusion 30 mL/hr, intravenous, Continuous, Starting on Phyllis 01/31/25 at 0800, Pre-Op New Bag 01/31/2025 9:20 AM CDT Rate/Dose Verify 01/31/2025 8:36 AM CDT 30 mL/h r New Bag 01/31/2025 7:39 AM CDT 30 mL/hr 30 mL/hr ondansetron (ZOFRAN) injection 4 mg 4 mg, intravenous, Administer over 2 Minutes, Every 6 hours PRN, nausea, vomiting, if not tolerating PO, Starting on Phyllis 01/31/25 at 1331, Indications: nausea and vomitingIndications:nausea and vomiting ondansetron ODT (ZOFRAN-ODT) disintegrating tablet 4 mg 4 mg, oral, Every 6 hours PRN, nausea, vomiting, Starting on Phyllis 01/31/25 at 1331, If administering by mouth, place tablet on tongue and allow to dissolve., Indications: nausea and vomitingIndications:nausea and vomiting oxyCODONE (ROXICODONE) tablet 5 mg 5 mg, oral, Every 4 hours PRN, breakthrough pain, Starting on Phyllis 01/31/25 at 1331, Indications: PainIndications:Pain oxyCODONE-acetaminophen (PERCOCET) 5-325 mg per tablet 1 tablet 1 tablet, oral, Every 4 hours PRN, 1st line for pain, Starting on Phyllis 01/31/25 at 1331, Indications: PainIndications:Pain oxyCODONE-acetaminophen (PERCOCET) 5-325 mg per tablet 2 tablet 2 tablet, oral, Every 4 hours PRN, 2nd line for pain, Starting on Phyllis 01/31/25 at 1331, Indications: PainIndications:Pain sodium chloride 0.9% infusion 125 mL/hr, intravenous, Continuous, Starting on Phyllis 01/31/25 at 1415, Phase I & Post-op Floor documented in this encounter Active and Recently Administered Medications Times are shown in CDT. Scheduled Medication Order 01/29/2025 01/30/2025 01/31/2025 acetaminophen (TYLENOL) tablet 1,000 mg (COMPLETED) 1,000 mg, oral, Once, On Phyllis 01/31/25 at 0800, For 1 dose, Pre-Op, Indications: Pre-Emptive Analgesia 0746 (Given - Provid er: Kranthi Madison RN) ceFAZolin (ANCEF) 2,000 mg/20 mL in sterile water (premix) 2,000 mg (COMPLETED) 2,000 mg, intravenous, at 400 mL/hr, Administer over 3 Minutes, Once, On Phyllis 01/31/25 at 0800, For 1 dose, Pre-Op, Administer within 60 minutes of incision., Indications: Prophylaxis, Surgical 0930 (Given - Provid er: Liu Eubanks CRNA) ceFAZolin (ANCEF) 2,000 mg/20 mL in sterile water (premix) 2,000 mg 2,000 mg, intravenous, at 400 mL/hr, Administer over 3 Minutes, Every 8 hours, First dose on Phyllis 01/31/25 at 1730, For 2 doses, Beginning 8 hours after last rica-operative dose., Indications: Prophylaxis, Surgical 1547 (Given - Provid er: Kranthi Madison RN) celecoxib (CeleBREX) capsule 200 mg (COMPLETED) 200 mg, oral, Once, On Phyllis 01/31/25 at 0800, For 1 dose, Pre-Op, Indications: Pain 0746 (Given - Provid er: Kranthi Madison RN - Comment: Per Dr. Lopez administer medication.) dexAMETHasone (DECADRON) 4 mg/mL injection 8 mg (COMPLETED) 8 mg, intravenous, Administer over 2 Minutes, Once, On Phyllis 01/31/25 at 0800, For 1 dose, Intra-Op, Intra-op administration., Indications: Pain Treatment Adjunct 0853 (Given - Provid er: Liu Eubanks CRNA) ketorolac (TORADOL) 30 mg/mL injection 15 mg 15 mg, intravenous, Every 6 hours, First dose on Phyllis 01/31/25 at 1415, For 2 doses, Indications: Pain 1355 (Given - Provid er: Kranthi Madison RN) tranexamic acid (CYKLOKAPRON) 1,000 mg/100 mL (10 mg/mL) in sodium chloride (premix) 1,000 mg (COMPLETED) 1,000 mg (rounded from 1,299 mg = 15 mg/kg 86.6 kg), intravenous, at 400 mL/hr, Administer over 15 Minutes, Once, On Phyllis 01/31/25 at 0800, For 1 dose, Intra-Op, Administer at time of incision, Indications: Prophylaxis, Surgical 0856 (New Bag - Prov ider: Liu Eubanks CRNA) Continuous Medication Order 01/29/2025 01/30/2025 01/31/2025 Lactated Ringer's (LR) infusion 30 mL/hr, intravenous, Continuous, Starting on Phyllis 01/31/25 at 0800, Pre-Op 0739 (New Bag - Prov ider: Kranthi Madison RN)0836 (Rate/Dose Verify - Provider: Liu Eubanks CRNA)0919 (Paused - Provider: Liu Eubanks CRNA - Comment: Switch to gravity)09 (New Bag - Provider: Liu Eubanks CRNA)2007 (Due: Stopped) sodium chloride 0.9% infusion 125 mL/hr, intravenous, Continuous, Starting on Phyllis 01/31/25 at 1415, Phase I & Post-op Floor 1415 (Due) PRN Medication Order 01/29/2025 01/30/2025 01/31/2025 BUPivacaine (MARCAINE) 0.25 % (2.5 mg/mL) preservative free injection (CANCELED) As needed, Starting on Phyllis 01/31/25 at 0934, Intra-Op 0934 (Given - Provid er: Mark Lugo MD) BUPivacaine (MARCAINE) 50 mg, morphine 10 mg, EPINEPHrine 0.3 mg, ketorolac (TORADOL) 30 mg in sodium chloride 0.9% 20 mL topical solution (CANCELED) As needed, Starting on Phyllis 01/31/25 at 1009, Intra-Op 1009 (Given - Provid er: Mark Lugo MD) ePHEDrine injection 15 mg (CANCELED) 15 mg, intravenous, Administer over 5 Minutes, Every 10 min PRN, sbp<90, Starting on Phyllis 01/31/25 at 1132, For 3 doses, Phase I 1135 (Given - Provid er: Shea Muller RN - Comment: anesthesia said to give a dose)1155 (Given - Provider: Shea Muller RN) ondansetron (ZOFRAN) injection 4 mg(Linked Group 1) 4 mg, intravenous, Administer over 2 Minutes, Every 6 hours PRN, nausea, vomiting, if not tolerating PO, Starting on Phyllis 01/31/25 at 1331, Indications: nausea and vomiting ondansetron ODT (ZOFRAN-ODT) disintegrating tablet 4 mg(Linked Group 1) 4 mg, oral, Every 6 hours PRN, nausea, vomiting, Starting on Phyllis 01/31/25 at 1331, If administering by mouth, place tablet on tongue and allow to dissolve., Indications: nausea and vomiting oxyCODONE (ROXICODONE) tablet 5 mg 5 mg, oral, Every 4 hours PRN, breakthrough pain, Starting on Phyllis 01/31/25 at 1331, Indications: Pain oxyCODONE-acetaminophen (PERCOCET) 5-325 mg per tablet 1 tablet 1 tablet, oral, Every 4 hours PRN, 1st line for pain, Starting on Phyllis 01/31/25 at 1331, Indications: Pain oxyCODONE-acetaminophen (PERCOCET) 5-325 mg per tablet 2 tablet 2 tablet, oral, Every 4 hours PRN, 2nd line for pain, Starting on Phyllis 01/31/25 at 1331, Indications: Pain povidone-iodine (BETADINE) 118 mL in sodium chloride 0.9% 1,000 mL irrigation (CANCELED) As needed, Starting on Phyllis 01/31/25 at 0934, Intra-Op 0934 (Given - Provid er: Mark Lugo MD - Comment: On field) sodium chloride 0.9% irrigation (CANCELED) As needed, Starting on Phyllis 01/31/25 at 0934, Intra-Op 0932 (Given - Provid er: Mark Lugo MD - Comment: On field)0934 (Given - Provider: Mark Lugo MD - Comment: Aquamantis/ Pulsavac) Linked Groups Order Group 1: ondansetron ODT (ZOFRAN-ODT) disintegrating tablet 4 mgJump to med 4 mg, oral, Every 6 hours PRN, nausea, vomiting, Starting on Phyllis 01/31/25 at 1331, If administering by mouth, place tablet on tongue and allow to dissolve., Indications: nausea and vomiting Or ondansetron (ZOFRAN) injection 4 mgJump to med 4 mg, intravenous, Administer over 2 Minutes, Every 6 hours PRN, nausea, vomiting, if not tolerating PO, Starting on Phyllis 01/31/25 at 1331, Indications: nausea and vomiting documented in this encounter Orders Medications Ordered That Dilip ht Not Have Been Administered Count Last Ordered Date First Ordered Date BUPivacaine (MARCAINE) 0.25 % (2.5 mg/mL) preservative free injection 1 01/31/2025 BUPivacaine (MARCAINE) 50 mg , morphine 10 mg, EPINEPHrine 0.3 mg, ketorolac (TORADOL) 30 mg in sodium chloride 0.9% 20 mL topical solution 2 01/31/2025 Carrier Fluids for Secondary Infusion - 0.9% Sodium Chloride 1 01/31/2025 ceFAZolin (ANCEF) 2,000 mg/2 0 mL in sterile water (premix) 2,000 mg 1 01/31/2025 dexAMETHasone (DECADRON) 4 m g/mL injection 8 mg 1 01/31/2025 diphenhydrAMINE (BENADRYL) 5 0 mg/mL injection 12.5 mg 1 01/31/2025 ePHEDrine 50 mg/mL injection - ADS Override Pull 1 01/31/2025 fentaNYL (SUBLIMAZE) preserv ative free injection 25 mcg 1 01/31/2025 fentaNYL (SUBLIMAZE) preserv ative free injection 50 mcg 1 01/31/2025 naloxone (NARCAN) 0.4 mg/mL injection 0.04-0.4 mg 1 01/31/2025 ondansetron (ZOFRAN) injection 4 mg 2 01/31 ondansetron ODT (ZOFRAN-ODT) disintegrating tablet 4 mg 1 01/31/2025 oxyCODONE (ROXICODONE) tablet 5 mg 1 2024 oxyCODONE-acetaminophen (PER COCET) 5-325 mg per tablet 1 tablet 1 01/31/2025 oxyCODONE-acetaminophen (PER COCET) 5-325 mg per tablet 2 tablet 1 01/31/2025 povidone-iodine (BETADINE) 1 18 mL in sodium chloride 0.9% 1,000 mL irrigation 1 01/31/2025 prochlorperazine (COMPAZINE) injection 5 mg 1 01/31/2025 sodium chloride 0.9% flush 0.5-20 mL 1 01/15 sodium chloride 0.9% infusion 1 01/31/2025 sodium chloride 0.9% irrigation 1 traMADoL (ULTRAM) tablet 50 mg 1 01/31/2025 tranexamic acid (CYKLOKAPRON ) 1,000 mg/100 mL (10 mg/mL) in sodium chloride (premix) 1,000 mg 1 01/31/2025 General Supply Count Last Ordered Date First Or dered Date WALKER 1 01/31/2025 Diet Count Last Ordered Date First Orde red Date ADULT DISCHARGE DIET 1 01/31/2025 Nursing Count Last Ordered Date First Orde red Date DISCHARGE ACTIVITY 4 01/31/2025 DISCHARGE CALL PROVIDER 5 01/31/2025 DISCHARGE DRESSING 6 01/31/2025 DISCHARGE INSTRUCTIONS 1 01/31/2025 FOLLOW UP WITH ESTABLISHED PROVIDER 1 01/31 Discharge Count Last Ordered Date First Orde red Date DISCHARGE PATIENT 1 01/31/2025 documented in this encounter Care Teams X Ray Technician Relationship Specialty Start Date End Date Zaina Terry MD PCP - General 06/15/16 Jonathan Wong MD Surgeon Orthopedic Surgery 08/26/17 Mark Nelson OD [address] [place] [address] Ophthalmology 08/26/17 Dk Willis MD [address] [place] [id number] Consulting Physician Cardiology 11/01/17 Everardo Huertas MD [address] [facility] [address] Ryder [place] [place] [address] Consulting Physician Gastroenterology 04/11/18 Wayne Dougherty Jr., MD [address] [facility] [address] [place] [place] [place] [address] Consulting Physician Orthopedic Surgery 10/06/18 Kimberly Barone MD [address] [place] [address] [place] [address] Consulting Physician General Surgery 02/25/21 Turner Ramos MD [address] [facility] [address] [place] Ryder [place] [address] Consulting Physician Gastroenterology 02/27/21 Mark Lugo MD [address] [facility] [address] Surgeon Orthopedic Surgery 07/17/21 Kristina Fonseca PA [address] [facility] [place] [address] Physician Media Marketing Specialist Orthopedic Surgery 07/22/21 David Maguire MD [address] [place] [id number] Consulting Physician Otolaryngology 02/01/24 documented as of this encounter
--- OUTSIDE RECORDS SUMMARY | 2025-02-01 19:58 | XMS_ITS | Referral Summary ---
Author Organization [facility] [address] Address [address] [place] [address] Phone Care Team Providers Care Diving Fisher Name Role Phone Zaina Terry MD Primary Care Provider [phone] Jonathan Wong MD Unavailable Mark Nelson OD Unavailable [phone] Dk Willis MD Unavailable [phone] Everardo Huertas MD Unavailable [phone] Ladonna Figueroa MD, Wayne Maguire Unavailable [phone] Kevin Barone MD Unavailable Turner Ramos MD Unavailable [phone] Mark Lugo MD Unavailable [phone] Kristina Fonseca Unavailable [phone] David Maguire MD Unavailable [phone] Encounters Date Type Department Care Team Description 02/01/2025 Telephone [facility] Orthopedics and Sports Medicine [address] [facility] [address] [place] [address] Chicho Musa NP 01/31/2025 8:30 AM CDT - 01/31/2025 10:55 AM CDT Surgery [facility] [address] [place] [address] Makr Lugo MD Right Robotic Assisted Total Knee Arthroplasty 01/31/2025 8:36 AM CDT Anesthesia Event [facility] [address] [place] [address] Josesito Rod DO McDowell, Juri Osmell, MD 01/31/2025 7:11 AM CDT - 01/31/2025 4:08 PM CDT Hospital Encounter [facility] [address] [place] [address] Mark Lugo MD Primary osteoarthritis of right knee (Primary Dx) Discharge Disposition: Discharge to home or self care 01/18/2025 10:00 AM CDT Office Visit [facility] Medical [facility] [address] [facility] [address] [place] [address] Nilam Lewis NP Pre-op evaluation (Primary Dx); Abnormal EKG; Mood disorder 01/11/2025 Telephone [facility] Orthopedics and Sports Medicine [address] [place] [address] [address] [place] [address] Vandana Cai PA 01/11/2025 9:10 AM CDT Lab [address] [address] Pre-op testing 01/11/2025 9:06 AM CDT - 01/11/2025 11:59 PM CDT Hospital Encounter [facility] [address] [place] [address] Pre-op testing Discharge Disposition: Discharge to home or self care 01/11/2025 9:06 AM CDT - 01/11/2025 11:59 PM CDT Hospital Encounter [facility] [address] [place] [address] Pre-op testing Discharge Disposition: Discharge to home or self care 01/10/2025 Telephone [facility] Sports Medicine [address] [place] [address] [address] [place] [address] Mark Lugo MD 01/10/2025 Orders Only [facility] [address] [place] [address] [address] [place] [address] Mark Lugo MD S/P total knee arthroplasty, right (Primary Dx) 01/10/2025 Telephone [facility] Sports Medicine [address] [place] [address] [address] [place] [address] Mark Lugo MD Surgery Date 01/10/2025 9:45 AM CDT Office Visit [facility] Sports Medicine [address] [place] [address] [address] [place] [address] Mark Lugo MD Pre-op testing (Primary Dx); Primary osteoarthritis of right knee; Primary osteoarthritis of left knee 12/13/2024 8:40 AM LABORATORY VETERINARIAN Office Visit [address] [place] [address] Kayley Foster NP S/P bilateral inguinal hernia repair, follow-up exam (Primary Dx) 11/30/2024 8:00 AM LABORATORY VETERINARIAN - 11/30/2024 9:40 AM LABORATORY VETERINARIAN Surgery [facility] [address] [place] [address] Kevin Barone MD BILATERAL INGUINAL HERNIA REPAIR WITH MESH - LAPAROSCOPIC ROBOTIC 11/30/2024 7:54 AM LABORATORY VETERINARIAN Anesthesia Event [facility] [address] [place] [address] Urban Lopez MD McDowell, Juri Osmell, MD 11/30/2024 6:28 AM LABORATORY VETERINARIAN - 11/30/2024 11:06 AM LABORATORY VETERINARIAN Hospital Encounter [facility] [address] [place] [address] Kevin Barone MD Left inguinal hernia (Primary Dx) Discharge Disposition: Discharge to home or self care 11/17/2024 Orders Only [facility] [address] [facility] [address] [place] [address] Zaina Terry MD Viral URI with cough (Primary Dx) 11/16/2024 Telephone [facility] [address] [facility] [address] [place] [address] Zania Terry MD asking for cough medicine from Last 3 Months Allergies No known active allergies Medications cholecalcifero l (VITAMIN D-3) 50,000 unit capsuleIndicat ions:Vitamin D deficiency Take 1 capsule (50,000 Units total) by mouth once a week 03/14/20 24 Active citalopram (CeleXA) 20 mg tabletIndicati ons:Mood disorder,Recur rent moderate major depressive disorder with anxiety (HCC) TAKE 1 TABLET BY MOUTH DAILY 90 tablet 1 10/26/19 25 Active traZODone (DESYREL) 50 mg tabletIndicati ons:Insomnia due to medical condition TAKE 1 TABLET (50 MG TOTAL) BY MOUTH NIGHTLY NEEDED FOR SLEEP 90 tablet 1 01/24/20 25 Active aspirin 81 mg enteric coated tablet Take 1 tablet (81 mg total) by mouth 2 (two) times a day 84 tablet 02/01/20 25 Active celecoxib (CeleBREX) 200 mg capsuleIndicat ions:Postopera tive Acute Pain Take 1 capsule (200 mg total) by mouth 2 (two) times a day 84 capsule 02/01/20 25 Active ferrous sulfate 325 mg (65 mg of elemental iron) tabletIndicati ons:Iron Deficiency Anemia Take 1 tablet (325 mg total) by mouth daily with breakfast 30 tablet 02/01/20 25 025 Active ondansetron (ZOFRAN) 8 mg tabletIndicati ons:Prevention of Post-Operative Nausea and Vomiting Take 1 tablet (8 mg total) by mouth every 8 (eight) hours as needed for nausea or vomiting 20 tablet 2 02/01/20 25 Active ascorbic acid, vitamin C, 500 mg capsule Take 500 mg by mouth daily 30 capsule 02/01/20 25 025 Active senna-docusate (PERICOLACE) 8.6-50 mg Take 1 tablet by mouth 2 (two) times a day as needed for constipation 60 tablet 2 02/01/20 25 Active oxyCODONE-acet aminophen (PERCOCET) 5-325 mg per tabletIndicati ons:Pain Take 1-2 tablets by mouth every 4 (four) hours as needed for pain 40 tablet 02/01/20 25 Active traZODone (DESYREL) 50 mg tabletIndicati ons:Insomnia due to medical condition Take 1 tablet (50 mg total) by mouth nightly as needed for sleep for sleep 90 tablet 1 08/28/20 24 025 Discontinued Active Problems Problem Noted Date Diagnosed Date Pre-op evaluation 01/14/2025 Assessment & Plan (01/18/2025 10:13 AM CDT): Presents for R TKR clearance with Dr. Lugo on 01/31/25. Meds and allergies reviewed in office today for accuracy. Vitals stable, no acute findings on exam. Abnormal EKG reviewed, on isolated PVC, no ischemic changes or other ectopy. 1st degree AV block noted, unchanged from previous. Patient asymptomatic, vitals stable, no abnormal exam findings. Low risk for surgical complications, cleared for procedure. Will fax clearance form to Dr. Lugo S/P bilateral inguinal hernia repair, follow-up exam 12/13/2024 Insomnia due to medical condition 08/28/2024 Primary osteoarthritis of right knee 06/01/2024 Elevated serum creatinine 02/06/2024 Assessment & Plan (02/06/2024 9:13 PM CDT): Incidentally found on recent labs. Furniture And Bedding Inspector in November was 1.1 now 1.3. admits occasional aleve use, no ETOH, no nephrotoxic meds. Advised him to stop any NSAID use and just use tylenol. Stay hydrated. Will recheck renal panel in 6 weeks. Frequent nosebleeds 02/06/2024 Assessment & Plan (02/06/2024 9:15 PM CDT): As described in HPI, no acute findings or nasal lesions on exam today. Advised when he has a nose bleed bend the neck forward AND pinch the bridge of the nose in between his eyes to manually stop bleed. Advised to use OTC afrin at the start of a nosebleed to help stop it also avoid picking or blowing too hard. Call ENT if nosebleeds continue. Sacroiliitis 06/08/2023 DDD (degenerative disc disease), lumbar 03/30/20 Lumbar radiculopathy 03/23/2022 Celiac artery stenosis 03/13/2021 Overview (03/13/2021): Chronic blood loss anemia large hiatal hernia, I suspect paraesophageal hernia. Also has bilateral inguinal and umbilical hernias on CT with mild celiac artery stricture Bilateral inguinal hernia without obstruction or gangrene 02/27/2021 Overview (02/27/2021): Umbilical and bilateral inguinal hernias noted on CT scan February 2021=There is a fat containing periumbilical hernia with the abdominal wall defect measuring 1.3 cm (axial image 79). There is a fat containing right inguinal hernia with the abdominal wall defect measuring 1.1 cm (axial image 126). There is a fat containing left inguinal hernia with the abdominal wall defect measuring 1.7 cm (axial image 129). Hiatal hernia 02/24/2021 Overview (02/27/2021): CT abdomen February 2021 = There is a moderate to large size hiatal hernia with a partially intrathoracic stomach. Assessment & Plan (12/30/2023 8:39 AM CDT): Repaired in 2020, now c/o same pain to L groin area occasionally. No bulge, no acute findings or tenderness on exam to either area. No further imaging indicated at this time. Will continue to monitor. Assessment & Plan (05/14/2021 9:00 AM CDT): Continue small frequent meals. Continue to take Protonix for stress prophylaxis. Continue incentive spirometer. Continued diet as laid out in post April handout. We will see the patient back at 4 weeks time to reassess prior to transitioning back to regular food. He will call sooner if any issues arise. Assessment & Plan (03/12/2021 2:23 PM CDT): Esophagram did not demonstrate any signs of esophageal dysmotility. We will set the patient up for a paraesophageal hernia repair with toupet fundoplication. Risks and benefits have been explained. We talked about the need for a lengthening procedure. We discussed postoperative restrictions as well as hospital stay. He is in understanding. Pre-admission testing will be sent in. All questions answered. Mood disorder 02/22/2021 Assessment & Plan (01/18/2025 10:15 AM CDT): Controlled on celexa and trazodone, no acute findings on exam. Recent CMP unremarkable. Continue same. Assessment & Plan (12/30/2023 8:36 AM CDT): Controlled on celexa and trazodone, no acute findings on exam. Labs unremarkable. Will refill today, continue current regimen. GERD without esophagitis 02/22/2021 Assessment & Plan (06/09/2021 5:35 PM CDT): Okay to advance to regular diet. Patient is okay to stop his PPI. Patient can return to activities unrestricted in 1 week. Continue small frequent meals and avoid eating too quickly. He will call us back with any further questions or concerns. Dizziness 02/18/2021 Assessment & Plan (02/11/2024 11:15 AM CDT): Only with moderate-severe exertion Denies acute cardiac symptoms. No acute findings on exam, neuro intact, HR and BP stable. No orthostatic pressure was done today. Labs from 2 days ago show slight elevation in Furniture And Bedding Inspector. Stable CBC. No other abnormal findings. Given benign exam, dizziness is likely some sort of vasovagal response to exertion. Advised patient to monitor carefully and stop workout when he experiences this. Stay hydrated, get better control of nosebleeds and call ENT. If symptoms continue we may need EKG and stress test. Assessment & Plan (02/18/2021 10:27 AM CDT): Discussed differentials: Iron def anemia (he has hx of this), cardiac problems (chest x-ray and EKG today, sees makeup sales consultant next week, has loop recorder implanted, getting carotid dopplers), neck compression on a nerve (doing neck x-rays today), inner ear problem (suggested PT with the raghav maneuver--pt does not think it is related to this), orthostatic hypotension (will get ortho BP's today). EKG: nothing acute, nothing new from previous--considered abnormal but NSR (shows poor P wave progression, consider old ant infarct, low voltage poss pulm disease). Orthostatic blood pressures: lying= 100/70, sitting=92/70, standing 84/64. Will await labs and then decide if he will need to put on medication for this, and will consult Dr. PORRAS. Until then--advised compression stockings and avoid sudden positional changes, push fluids, avoid caffiene We will order labs--CBC, CMP, iron profile, ferritin, TSH, testosterone (pt requesting testosterone) (pt to have his annual in [address] PORRAS), and also carotid dopplers. Pt reports that after being diagnosed with low iron, he had been taking iron pills daily. He recently stopped bc he states I was feeling fine. I advised that he restart taking those iron pills which he agrees to. We will get an updated chest x-ray and neck x-ray as well. Pt had an extensive work up back in the fall for this same problem--echo, cardiac MRI, CT chest, 30 day cardiac event monitor, loop recorder implantation. He does see his makeup sales consultant Dr. Hunt next week so I have advised him to make them aware of this symptoms as well. He does see Dr. PORRAS in 3 weeks for his annual. Status post placement of implantable loop record er 11/17/2020 Overview (03/11/2022): [employer] Implantable Loop Recorder. Dx; NSVT, Syncope, PVC's, PAF, Atrial Bigeminy (brief). DOI 11/17/2020-[place]. Carelink remote. ILR explanted 02/05/2022. NSVT (nonsustained ventricular tachycardia) 08/18 Overview (10/13/2020): Confirmed on 30 day CardioNet after syncope, referred by Dr. [facility] Cardiology to electrophysiology CONCLUSION Ventricular tachycardia as well as supraventricular tachycardia detected. The total burden of the premature ventricular contractions and premature atrial contractions was 1%. Job ID/VF Job ID: [id number] Multiple-type hyperlipidemia 02/29/2020 Sleep-disordered breathing 05/19/2018 Overview (02/29/2020): Eating 500 mg of caffeine daily as of February 2020, we will taper back to 100 and no further testing will be done BPH without urinary obstruction 04/14/2018 Iron deficiency anemia 04/06/2018 Overview (04/07/2018): Added automatically from request for surgery [id number] Assessment & Plan (12/30/2023 8:36 AM CDT): No acute symptoms or findings on exam, no supplementation at this time. Will check CBC and iron profile for monitoring. Assessment & Plan (02/20/2021 11:58 AM CDT): Labs: Hgb 13.0 - 17.5 g/dL 8.9Low Hct 38.9 - 50.3 % 30.6Low Plt 150 - 400 K/cumm 372 MPV 9.1 - 12.3 fL 9.0Low RBC 4.30 - 5.80 M/cumm 3.66Low MCV 81.3 - 96.4 fL 83.6 MCH 27.1 - 33.3 pg 24.3Low MCHC 32.3 - 35.7 g/dL 29.1Low RDW CV 11.1 - 14.9 % 17.3High RDW SD 35.7 - 48.1 fL 52.9High Iron 50 - 150 mcg/dl 133 TIBC 250 - 400 mcg/dL 471High Transferrin saturation 20 - 50 % 28 Ferritin 30 - 400 ng/mL 10Low Pt found to have positive guaiac on stool card today with rectal examination. Will refer to GI. Per Dr. PORRAS we will set him up for IV iron infusion. He will have repeat CBC and iron profile in 3 months. He does have a f/u appt with Dr. PORRAS in 3 weeks on 03/13. He will start taking ferrous sulfate 325mg every day. Abnormal EKG 08/28/2017 Overview (03/14/2024): Images from the original note were not included. QS deformity inferior leads August 2016 annual. stress testing echo portion of the stress echo June 15, 2016 Assessment & Plan (01/18/2025 10:14 AM CDT): Abnormal EKG reviewed, on isolated PVC, no ischemic changes or other ectopy. 1st degree AV block noted, unchanged from previous. Patient asymptomatic, vitals stable, no abnormal exam findings. Low risk for surgical complications, cleared for procedure. Will fax clearance form to Dr. 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 Given his active lifestyle he would like to have this fixed to prevent it from worsening over time. We will set him up for robotic assisted hernia repair. Postoperative restrictions such as lifting have been discussed. Need for mesh implantation discussed as well. All questions answered. Aftercare following right hi p joint replacement surgery 07/28/2021 10/27/2022 Elevated hemoglobin A1c 07/17/202110/17 Primary osteoarthritis of right hip 07/09/2021 10/27/2022 Overview (07/09/2021): Added automatically from request for surgery [id number] Paroxysmal atrial fibrillation 03/25/2021 01/18/2025 Restless leg syndrome 02/25/20212022 Renal cyst 02/24/2021 03/13/2021 Anemia due to GI blood loss 02/22/2021 10/27/2022 Guaiac positive stools 02/20/202103/13 Assessment & Plan (02/20/2021 11:55 AM CDT): Guaiac positive stool card today with rectal exam. Will refer to GI for this. Caffeine use 10/22/2020 03/13/2021 PVC's (premature ventricular contractions) 10/22/2020 03/13/2021 Gastrointestinal hemorrhage associated with gastritis 09/17/2020 03/13/2021 Overview (09/17/2020): Added automatically from request for surgery [id number] Fecal occult blood test positive 09/17/2020 03/13/2021 Overview (09/17/2020): Added automatically from request for surgery [id number] Right ventricular dysfunction 09/10/2020 10/27/2022 Abnormal echocardiogram 09/10/202002/15 Near syncope 09/03/2020 03/13/2021 Overview (09/05/2020): Verbal report echo 09/05/2020 Dr. Pa august RV consistent with recent PE as a cause of syncope. He advised emergency room evaluation for CT pulmonary angiogram. Spoke with patient's 5:55 p.m. just after receiving the information and she will bring him to ER today. Contacted ER with information and I will be awaiting the test results. Inform the that Patient is to avoid driving until we have more information Assessment & Plan (09/03/2020 9:00 AM LABORATORY VETERINARIAN): Most likely secondary to GIB as he is noted to have positive FOBT in office, fatigue and hypotension. Has know history of GIB in the past requiring transfusion. Given these findings we will send for stat labs this am-CBC, CMP and iron panel. He was instructed to avoid excess caffeine as there is concern his increased intake could have contributed to episode. We will also do EKG to r/o any arrhythmia or acute ischemic changes. He will need referral to GI [facility] and pending results of labs further recommendations to follow. CKD (chronic kidney disease) stage 3, GFR 30-59 ml/min 03/02/2020 07/09/2021 Overview (03/02/2020): Creatinine 1.31 new finding as of annual physical February 2020 Disparity of leg length, acquired 02/29/2020 03/13/2021 Overview (02/29/2020): 1 in longer left leg after left hip replacement April 20 2018, will be the using a 5/8 inch lift in his right shoe Tiredness 05/19/2018 02/29/2020 Insomnia, persistent 05/05/2018 018 Overview (05/05/2018): Failed Ambien to 10 mg nightly, switch to trazodone 50 mg 1/2 to 1 or 2 tablets at bedtime 05/05/2018 Arthritis 04/14/2018 10/06/2018 Duodenitis 04/07/2018 05/28/2018 GIB (gastrointestinal bleeding) 04/06/2018 05/28/2018 Assessment & Plan (04/07/2018 4:28 AM CDT): Patient had been taking multiple doses of NSAIDs. Likely the source for GI bleed. No NSAIDs or any a anti platelet medications. No heparin products for DVT prophylaxis. Keep patient on clear liquid diet. NPO after midnight. GI was consulted-plan is for EGD in a.m.. Will follow up with recommendations. Continue with pantoprazole 40 mg IV b.i.d. 1 unit of packed red blood cells Trend H&H every 6 hr Recheck CBC in a.m. Assessment & Plan (04/06/2018 7:47 PM CDT): Start on ppi, egd in am. FOBT positive but denies gross blood. Gastrointestinal hemorrhage with melena 04/06/2018 05/28/2018 Overview (04/07/2018): Added automatically from request for surgery [id number] Lumbago 10/05/2017 02/29/2020 Left hip pain 10/05/2017 05/28/2018 Overview (05/28/2018): successful hip replacement April 2018 Assessment & Plan (04/07/2018 4:26 AM CDT): Patient is scheduled for left hip replacement surgery in 2 weeks. Will continue with home pain medications with tramadol Assessment & Plan (04/06/2018 7:42 PM CDT): He is supposed to have hip surgery soon, on pain meds Vasovagal syncope 09/21/2017 05/28/2018 Disorder of rotator cuff 07/19/2017 Instability of shoulder joint 07/15/2017 10/06/2018 Pain in shoulder 07/11/2017 02/29/2020 Pruritus 03/02/2014 08/28/2017 Overview (01/20/2017): Chronic pruritus Immunizations Immunization Administration Dates Next Due Influenza, Unspecified 08/28/2024(Deferred: Malorie ent Refused) Moderna SARS-CoV-2 Monovalen t Vaccination (12+ YRS) 12/16/2020,11/13/2020 Pneumococcal Conjugate PCV 13 06/10/2016 Pneumococcal Polysaccharide PPV23 08/26/2017 Tdap 03/16/2011 ZOSTER LIVE 01/23/2015 Social History Tobacco Use Types Packs/Day Years Used Date Smoking Tobacco: Never Smokeless Tobacco: Never Tobacco Cessation:Counseling Given: Not Answered Alcohol Use Standard Drinks/Week Comments No 0 [...] on file Legal Sex Male 6:46 PM LABORATORY VETERINARIAN Gender Identity Not on file Sexual Orientation Straight 09/10/2020 8: 05 AM LABORATORY VETERINARIAN 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 on file Not on fi le Last Filed Vital Signs Vital Sign Reading [...] Mass Index 28.19 01/31/2025 7:17 AM CDT Plan of Treatment Not on file Medical Devices Implanted Type Area Nurseryman Assistant Device Identifier Shelf Expiration Date Model / Serial / Lot [employer]uy [employer] [id number] [place] 56mm Sector Hip Shell Acetabular Gription Sterile Latex Free - [id number] Implanted:Qty: 1 on 07/22/2021 by Mark Lugo MD at [facility] Right: Hip [employer] 05/16/2031 [id number] / / [id number] [employer] [id number] [place] 56mm 36mm Hip Neutral Liner Acetabular Altrx Sterile Latex Free - [id number] Implanted:Qty: 1 on 07/22/2021 by Mark Lugo MD at [facility] Right: Hip [employer] 10/16/2025 [id number] / / [id number] [employer] 1217-35-500 [place] 6.5mm 35mm Acetabular Cancellous Screw Bone Sterile - [id number] Implanted:Qty: 1 on 07/22/2021 by Mark Lugo MD at [facility] Right: Hip [employer] 04/15/2031 1217-35-500 / / [id number] Dep[employer] [id number] Actis L107 Mm Collar Hip 6 High Offset Stem Femoral - [id number] Implanted:Qty: 1 on 07/22/2021 by Mark Lugo MD at [facility] Right: Hip [employer] 05/16/2031 [id number] / / [id number] Depuy [employer] [id number] Articul/Tyree 36mm Cementless Hip +5mm 12/14 Taper Head Femoral Latex Free - [id number] Implanted:Qty: 1 on 07/22/2021 by Mark Lugo MD at [facility] Right: Hip [employer] 02/13/2026 [id number] / / [id number] [employer]/C R Bard Mesh Surgical Inguinal Hernia Synthetic Patch 3dmax 4x6in [id number] - [id number] Implanted:Qty: 1 on 11/30/2024 by Kevin Barone MD at [facility] Left: Abdomen [employer]/C [employer] Bard 06/13/2029 [id number] / / [id number] [employer]/C R Bard Mesh Surgical Mid Anatomical Synthetic Patch 3dmax 4x6in [id number] - [id number] Implanted:Qty: 1 on 11/30/2024 by Kevin Barone MD at [facility] Right: Abdomen [employer]/C R Bard 08/13/2029 [id number] / / [id number] Depuy [employer] Insert Tibial Knee Fixed Rm Posterior Stabilized Attune 8mm Size 7 Polyethylene [id number] - [id number] Implanted:Qty: 1 on 01/31/2025 by Mark Lugo MD at [facility] Right: Knee [employer] [id number] 06/16/2031 [id number] / / [id number] [employer] Attune Cruciate Retain Cementless Knee Right 7 Component Femoral [id number] - [id number] Implanted:Qty: 1 on 01/31/2025 by Mark Lugo MD at [facility] Right: Knee [employer] [id number] 11/16/2034 [id number] / / [id number] [employer] Attune Fb Tib Base Sz 7 Por [id number] - [id number] Implanted:Qty: 1 on 01/31/2025 by Mark Lugo MD at [facility] Right: Knee [employer] [id number] 02/13/2034 [id number] / / [id number] Procedures Procedure Name Priority Date/Time Associated Diagnosis Comments XR KNEE RIGHT 1 OR 2 VIEWS IP Routine 01/31/2025 11:32 AM CDT ANESTHESIA SPINAL BLOCK Routine 01/31/2025 8:52 AM CDT APTT STAT 01/31/2025 7:38 AM CDT PROTIME-INR STAT 01/31/2025 7:38 AM CDT ECG 12-LEAD Routine 01/11/2025 10:04 AM CDT Pre-op testing XR CHEST PA LATERAL 2 VIEWS Schedule Routine, Read Routine (OP Routine) 01/11/2025 9:21 AM CDT Pre-op testing EGFR Routine 01/11/2025 9:12 AM CDT Pre-op testing DIFFERENTIAL AUTO Routine 01/11/2025 9:1 2 AM CDT Pre-op testing CBC WITH AUTO DIFFERENTIAL Routine 01/11/2025 9:12 AM CDT Pre-op testing COMPREHENSIVE METABOLIC PANEL Routine 01/11/2025 9:12 AM CDT Pre-op testing HEMOGLOBIN A1C Routine 01/11/2025 9:12 AM CDT Pre-op testing URINALYSIS AND REFLEX TO MICROSCOPIC AND CULTURE Routine 01/11/2025 9:12 AM CDT Pre-op testing MO AN ELECTIVE ENDOTRACHEAL AIRWAY Routine 11/30/2024 8:12 AM LABORATORY VETERINARIAN XI INGUINAL HERNIA REPAIR - LAPAROSCOPIC ROBOTIC 11/30/2024 7:54 AM LABORATORY VETERINARIAN Left inguinal hernia ECG 12-LEAD STAT 11/30/2024 7:12 AM LABORATORY VETERINARIAN EGFR STAT 11/30/2024 6:57 AM LABORATORY VETERINARIAN DIFFERENTIAL AUTO STAT 11/30/2024 6:5 7 AM LABORATORY VETERINARIAN ANTIBODY SCREEN STAT 11/30/2024 6:57 AM LABORATORY VETERINARIAN ABO/RH STAT 11/30/2024 6:57 AM LABORATORY VETERINARIAN TYPE AND SCREEN STAT 11/30/2024 6:57 AM LABORATORY VETERINARIAN CBC WITH AUTO DIFFERENTIAL STAT 11/30/2024 6:57 AM LABORATORY VETERINARIAN BASIC METABOLIC PANEL STAT 11/30/2024 6:57 AM LABORATORY VETERINARIAN PSA SCREEN Routine 08/28/2024 8:08 AM LABORATORY VETERINARIAN Prostate cancer screening COLONOSCOPY 10/27/2020 9:03 AM LABORATORY VETERINARIAN HEPATITIS C ANTIBODY Routine 08/26/2017 4:42 PM LABORATORY VETERINARIAN Encounter for hepatitis C screening test for low risk patient from Last 3 Months or Most Recently Relevant to Health Maintenance Results * XR Knee Right 1 or [...] Chon Castillo M.D. MF: CHAPO Report ID: [id number] Reading Location: [id number] Procedure Note Chon Castillo MD - 02/01/2025 [...] Chon Castillo M.D. MF: CHAPO Report ID: [id number] Reading Location: [place] [address] Vandana LEIVA IMG XR PROCEDURES Fin al Result * Spinal Block (01/31/2025 8:52 AM CDT) Narrative Liu Eubanks CRNA - 01/31/2025 8:52 AM CDT Liu Eubanks CRNA 01/31/2025 8:52 AM Spinal Block Patient location: OR Reason for block: primary anesthetic Staff: Placed by: METAL BENCH PATTERNMAKER:Liu Eubanks CRNA Procedure prep: Preprocedure checklist: patient [...] Rod DO ANESTHESIA ORDERABL ES Final Result * aPTT (01/31/2025 7:38 AM CDT) aPTT 34 28 - 38 sec [facility] ([place]) Comment: Interpretive Data Heparin therapeutic range: 66.0 - 100.0 seconds. Range based on correlation with therapeutic heparin activity range of 0.3 - 0.7 Units/mL. Current interpretive data was last revised on 2023. Blood 01/31/2025 7:38 AM CDT 01/31/2025 7:45 AM CDT Mark Lugo MD LAB BLOOD ORDERABLES Fin al Result Performing Organization Address City/[facility] Co de Phone Number [facility] [place]) 1 [facility] [place] [address] * Protime-INR (01/31/2025 7:38 AM CDT) PT 10.8 9.7 - 13.0 sec [facility] ([place]) INR 1.00 0.90 - 1.20 [facility] ([place]) Comment: Interpretive data Oral anticoagulant therapeutic ranges: Venous thromboembolism prophylaxis or treatment: 2.0-3.0 CARDIOLOGY Standard range: 2.0-3.0 High-intensity range: 2.5-3.5 Refer to indication-specific guidelines for appropriate target ranges for prosthetic heart valve replacement. Current interpretive data was last revised on 2019. Blood 01/31/2025 7:38 AM CDT 01/31/2025 7:45 AM CDT us Mark uLgo MD LAB BLOOD ORDERABLES Fin al Result Performing Organization Address City/[facility] Co de Phone Number [facility] [place]) 1 [facility] [place] [address] * ECG 12 lead (01/11/2025 10:04 AM CDT) 01/11/2025 9:44 AM CDT Narrative [facility] - 01/11/2025 10:07 AM CDT Vent Rate: 68 bpm RR Interval: 879 msec MO Interval: 214 msec QRS Duration: 83 msec QT Interval: 410 msec QTC Interval: 427 msec P-R-T [place]: 60 - -66 - 41 degrees IMPRESSION: SINUS RHYTHM WITH FIRST DEGREE AV BLOCK WITH OCCASIONAL ECTOPIC PREMATURE COMPLEXES LOW QRS VOLTAGE [QRS DEFLECTION < 0.5/1.0 mV IN LIMB/CHEST LEADS] ANTERIOR MYOCARDIAL INFARCTION , PROBABLY OLD [40+ ms Q WAVE AND/OR ST/T ABNORMALITY IN V3/V4] INFERIOR MYOCARDIAL INFARCTION , PROBABLY OLD [40+ ms Q WAVE AND/OR ST/T ABNORMALITY IN II/aVF] ABNORMAL ECG Compared to prior EKG, PVCs are new Electronically Signed By: Elvis Bhakta MD us Mark Lugo MD ECG ORDERABLES Final Re sult [facility] * XR Chest PA Lateral 2 View (01/11/2025 9:21 AM CDT) Anatomical Region Laterality Modality Body, Chest N/A Computed Radiogr aphy 01/16/2025 11:0 1 AM CDT Narrative 01/16/2025 11:01 AM CDT EXAM DESCRIPTION: XR CHEST PA LATERAL 2 VIEWS REASON FOR STUDY: Pre op for right knee replacement scheduled for January 31 No current chest complaints TECHNIQUE: Frontal and lateral radiographic view(s) of the chest. COMPARISON: 02/11/2024 FINDINGS: There is cardiomegaly. The pulmonary vasculature and mediastinum are grossly stable. There is no definite evidence of a pneumothorax. There is no definite evidence of focal consolidation or pleural effusion. There is mild bibasilar subsegmental atelectasis and scarring. The osseous structures are acutely grossly stable. IMPRESSION: Mild bibasilar subsegmental atelectasis and scarring without definite evidence of focal consolidation. Cardiomegaly. THIS IS AN ELECTRONICALLY VERIFIED FINAL REPORT 01/16/2025 11:01 AM - Electronically signed by Paulette Rausch D.O. PS: PS Report ID: [id number] Reading Location: [id number] Procedure Note Paulette Rausch DO - 01/16/2025 EXAM DESCRIPTION: XR CHEST PA LATERAL 2 VIEWS REASON FOR STUDY: Pre op for right knee replacement scheduled for January 31 No currentchest complaints TECHNIQUE: Frontal and lateral radiographic view(s) of the chest. COMPARISON: 02/11/2024 FINDINGS: There is cardiomegaly. The pulmonary vasculature and mediastinum aregrossly stable. There is no definite evidence of a pneumothorax. There is no definite evidence of focal consolidation or pleural effusion. There ismild bibasilar subsegmental atelectasis and scarring. The osseous structures are acutely grossly stable. IMPRESSION: Mild bibasilar subsegmental atelectasis and scarring without definite evidence of focal consolidation. Cardiomegaly. THIS IS AN ELECTRONICALLY VERIFIED FINAL REPORT 01/16/2025 11:01 AM - Electronically signed by Paulette Rausch D.O. PS: PS Report ID: [id number] Reading Location: [place] [address] us Mark Lugo MD IMG XR PROCEDURES Final Result * (ABNORMAL) eGFR (01/11/2025 9:12 AM CDT) eGFR 55(L) >=60 mL/min/1. 73 m2 Comment: Interpretive Data Reference Interval Normal >/= 90 mL/min/1.73m2 Mildly decreased* 60 - 89 mL/min/1.73m2 Mildly to moderately decreased 45 - 59 mL/min/1.73m2 Moderately to severely decreased 30 - 44 mL/min/1.73m2 Severely decreased 15 - 29 mL/min/1.73m2 Kidney Failure < 15 mL/min/1.73m2 *Relative to young adult level Estimated glomerular filtration rate is determined by the 2020 CKD-EPI equation recommended by the National Kidney Foundation (A Unifying Approach to GFR Estimation: Recommendations of the NKF-ASK Task Force on Reassessing the Inclusion of Race in Diagnosing Kidney Disease, JASN 2020). The CKD-EPI equation should not be used for patients with unstable renal function and has not been validated in children and those over 70. Current interpretive data was last reviewed 2021. Blood 01/11/2025 9:12 AM CDT 01/11/2025 9:30 AM CDT us Mark Lugo MD LAB BLOOD ORDERABLES Fin al Result [facility] ([place]) 1 [facility] [place] [address] * Differential, auto (01/11/2025 9:12 AM CDT) Neutrophil abs 2.2 1.5 - 6.5 K/cumm Imm gran abs 0.0 0.0 - 0.1 K/cumm [facility] ([place]) Lymphocyte abs 1.3 0.8 - 3.3 K/cumm [facility] ([place]) Monocyte abs 0.5 0.2 - 0.8 K/cumm [facility] ([place]) Eosinophil abs 0.3 0.0 - 0.5 K/cumm [facility] ([place]) Basophil abs 0.1 0.0 - 0.1 K/cumm [facility] ([place]) Neutrophil pct 50.3 % [facility] ([place]) Comment: Interpretive Data Percent cell count reference ranges are not reported, since discordance with absolute values may lead to misinterpretation of CBC data. Current Interpretive Data was last revised on 2018. Imm gran pct 0.2 % [facility] ([place]) Comment: Interpretive Data Percent cell count reference ranges are not reported, since discordance with absolute values may lead to misinterpretation of CBC data. Current Interpretive Data was last revised on 2018. Lymphocyte pct 30.5 % [facility] ([place]) Comment: Interpretive Data Percent cell count reference ranges are not reported, since discordance with absolute values may lead to misinterpretation of CBC data. Current Interpretive Data was last revised on 2018. Monocyte pct 11.6 % [facility] ([place]) Comment: Interpretive Data Percent cell count reference ranges are not reported, since discordance with absolute values may lead to misinterpretation of CBC data. Current Interpretive Data was last revised on 2018. Eosinophil pct 6.0 % [facility] ([place]) Comment: Interpretive Data Percent cell count reference ranges are not reported, since discordance with absolute values may lead to misinterpretation of CBC data. Current Interpretive Data was last revised on 2018. Basophil pct 1.4 % [facility] ([place]) Comment: Interpretive Data Percent cell count reference ranges are not reported, since discordance with absolute values may lead to misinterpretation of CBC data. Current Interpretive Data was last revised on 2018. Blood 01/11/2025 9:12 AM CDT 01/11/2025 9:30 AM CDT Mark Lugo MD LAB BLOOD ORDERABLES Fin al Result [facility] ([place]) 1 [facility] Department [place] [address] * Urinalysis reflex to microscopic and culture Urine, clean voided (01/11/2025 9:12 AM CDT) Color, ur Yellow Yellow Clarity, ur Clear Clear [facility] ([place]) Specific gravity, ur 1.017 1.003 - 1.030 [facility] ([place]) pH, urine 6.5 [facility] ([place]) Comment: Interpretive Data U rine pH is affected by diet, medications, systemic acid-base disturbances, and renal tubular function. pH may affect urinary stone formation. For example, urine pH below 6.0 may help reduce the tendency for calcium phosphate stones and pH greater than 6.0 may reduce the tendency for uric acid stone formation. Source: [facility] Current Interpretive Data was last revised on 2017 Protein, ur ql Negative Negative [facility] ([place]) Glucose, ur ql Negative Negative [facility] ([place]) Ketones, ur Negative Negative [facility] ([place]) Bilirubin, ur Negative Negative [facility] ([place]) Blood, ur Negative Negative [facility] ([place]) Urobilinogen, ur <2.0 <2.0 mg/dL [facility] ([place]) Nitrite, ur Negative Negative [facility] ([place]) Leukocyte esterase, ur Negative Negative [facility] ([place]) UA reflex comment Reflex conditions for microscopic UA and culture not met. [facility] ([place]) Urine, clean voided 01/11/2025 9:12 AM CDT 01/11/2025 9:31 AM CDT us Mark Lugo MD LAB MICROBIOLOGY - GENER AL ORDERABLES Final Result [facility] ([place]) 1 [facility] [place] [address] * CBC with auto differential (01/11/2025 9:12 AM CDT) WBC 4.3 3.8 - 9.9 K/cumm Hgb 15.1 13.0 - 17.5 g/dL [facility] ([place]) Hct 44.7 38.9 - 50.3 % [facility] ([place]) Plt 234 150 - 400 K/cumm [facility] ([place]) MPV 9.1 9.1 - 12.3 fL [facility] RBC 4.83 4.30 - 5.80 M/cumm [facility] ([place]) MCV 92.5 81.3 - 96.4 fL [facility] ([place]) MCH 31.3 27.1 - 33.3 pg [facility] ([place]) MCHC 33.8 32.3 - 35.7 g/dL [facility] RDW CV 13.6 11.1 - 14.9 % [facility] RDW SD 46.6 35.7 - 48.1 fL [facility] NRBC abs 0.00 0.00 - 0.01 K/cumm [facility] Blood 01/11/2025 9:12 AM CDT 01/11/2025 9:30 AM CDT Mark Lugo MD LAB BLOOD ORDERABLES Fin al Result [facility] ([place]) 1 [facility] [place] [address] * Hemoglobin A1c (01/11/2025 9:12 AM CDT) Hgb A1C 5.4 4.0 - 5.6 % Estimated Average Glucose 108 mg/dL [facility] ([place]) Comment: The ADA recommends reporting an estimated Average Glucose (eAG) with all Hemoglobin A1c results using the equation derived from a study of 507 normal and diabetic adults. Minority populations were underrepresented and children were not included. (Diabetes Care 31:6339-3107, 2008). The eAG is not equivalent to a fasting glucose. Blood 01/11/2025 9:12 AM CDT 01/11/2025 9:30 AM CDT us Mark Lugo MD LAB BLOOD ORDERABLES [facility] al Result [facility] ([place]) 1 [facility] Department [place] [address] * (ABNORMAL) Comprehensive metabolic panel (01/11/2025 9:12 AM CDT) Sodium 137 135 - 145 mmol/L Potassium, pl 4.2 3.3 - 4.9 mmol/L [facility] ([place]) Chloride 101 97 - 110 mmol/L [facility] ([place]) CO2 23 22 - 32 mmol/L [facility] ([place]) Anion gap 13 2 - 15 mmol/L [facility] ([place]) BUN 25 6 - 25 mg/dL [facility] ([place]) Creatinine 1.35(H) 0.80 - 1.30 mg/dL [facility] ([place]) Glucose 108 70 - 199 mg/dL [facility] ([place]) Comment: Interpretive Data Fasting glucose >/= 126 mg/dl is diagnostic for diabetes. Fasting is defined as no caloric intake for at least 8 hours. Fasting glucose between 100 mg/dl to 125 mg/dl is diagnostic of prediabetes. In a patient with classic symptoms of hyperglycemia or hyperglycemic crisis, a random glucose >/= 200 mg/dl is diagnostic for diabetes. In the absence of unequivocal hyperglycemia, results should be confirmed by repeat testing. The classification and Diagnosis of Diabetes Diabetes Care 202; 46: S19-S40. Current interpretive data was last revised 2022. Calcium 9.2 8.5 - 10.3 mg/dL [facility] ([place]) Bilirubin, total 0.5 0.1 - 1.2 mg/dL [facility] ([place]) Protein, pl 6.7 6.5 - 8.5 g/dL [facility] ([place]) Albumin 4.0 3.5 - 5.0 g/dL [facility] ([place]) Alk phos 62 40 - 130 Units/L [facility] ([place]) ALT 28 7 - 55 Units/L [facility] ([place]) AST 28 10 - 50 Units/L [facility] ([place]) Blood 01/11/2025 9:12 AM CDT 01/11/2025 9:30 AM CDT us Mark Lugo MD LAB BLOOD ORDERABLES Fin al Result [facility] ([place]) 1 [facility] [place] [address] * MO AN ELECTIVE ENDOTRACHEAL AIRWAY (11/30/2024 8:12 AM LABORATORY VETERINARIAN) Narrative Vito Damico CRNA - 11/30/2024 8:12 AM LABORATORY VETERINARIAN Vito Damico CRNA 11/30/2024 8:12 AM Airway Patient location: pre-op Urgency: elective Indications for airway management: anesthesia Difficult airway: no Staff: Placed by: METAL BENCH PATTERNMAKER: Vito Damico CRNA Emergent airway documentation: Risks and benefits discussed: yes Consent obtained: yes Consent given by: patient Airway prep: Preoxygenated: yes Patient position: sniffing MILS maintained throughout: yes Mask difficulty assessment: 1 - vent by mask Spontaneous ventilation during airway: absent Sedation level during airway: GA Final airway details: Final airway type: endotracheal airway Tube type: ETT ETT size: 7.5 mm Cuffed: yes Technique used for successful ETT placement: video laryngoscopy Insertion site: oral Blade type: Danay Video blade type: [place] Blade size: 3 Cormack-Lehane (video): grade I - full view of glottis Cuff inflated with: air ETT to teeth: 24 cm Placement verified by: auscultation and CO2 detection Airway secured with: silk tape Number of attempts: 1 Ventilation between attempts: none Planned trial extubation: yes us Urban Lopez MD ANESTHESIA ORDERABLES Final Result * ECG 12 lead (11/30/2024 7:12 AM LABORATORY VETERINARIAN) 11/30/2024 7:12 AM LABORATORY VETERINARIAN Narrative [facility] - 11/30/2024 10:09 AM LABORATORY VETERINARIAN Vent Rate: 58 bpm RR Interval: 1032 msec MO Interval: 192 msec QRS Duration: 86 msec QT Interval: 432 msec QTC Interval: 428 msec P-R-T [place]: 2 - -48 - 9 degrees IMPRESSION: SINUS BRADYCARDIA LOW QRS VOLTAGE IN PRECORDIAL LEADS [QRS DEFLECTION < 1.0 mV IN CHEST LEADS] INFERIOR MYOCARDIAL INFARCTION , PROBABLY OLD [40+ ms Q WAVE AND/OR ST/T ABNORMALITY IN II/aVF] ANTEROSEPTAL MYOCARDIAL INFARCTION , OF INDETERMINATE AGE [40+ ms Q WAVE IN V1- V4] ABNORMAL ECG NO CHANGE FROM PREVIOUS TRACING NOTED Electronically Signed By: Elvis Bhakta MD Kevin Barone MD ECG ORDERABLES Final Result [facility] * eGFR (11/30/2024 6:57 AM LABORATORY VETERINARIAN) eGFR 83 >=60 mL/min/1. 73 m2 Comment: Interpretive Data Reference Interval Normal >/= 90 mL/min/1.73m2 Mildly decreased* 60 - 89 mL/min/1.73m2 Mildly to moderately decreased 45 - 59 mL/min/1.73m2 Moderately to severely decreased 30 - 44 mL/min/1.73m2 Severely decreased 15 - 29 mL/min/1.73m2 Kidney Failure < 15 mL/min/1.73m2 *Relative to young adult level Estimated glomerular filtration rate is determined by the 2020 CKD-EPI equation recommended by the National Kidney Foundation (A Unifying Approach to GFR Estimation: Recommendations of the NKF-ASK Task Force on Reassessing the Inclusion of Race in Diagnosing Kidney Disease, JASN 202). The CKD-EPI equation should not be used for patients with unstable renal function and has not been validated in children and those over 70. Current interpretive data was last reviewed 2021. Blood 11/30/2024 6:57 AM LABORATORY VETERINARIAN 11/30/2024 7:02 AM LABORATORY VETERINARIAN us Kevin Barone MD LAB BLOOD ORDERA BLES Final Result [facility] ([place]) 1 [facility] [place] [address] * Differential, auto (11/30/2024 6:57 AM LABORATORY VETERINARIAN) Neutrophil abs 1.9 1.5 - 6.5 K/cumm Imm gran abs 0.0 0.0 - 0.1 K/cumm [facility] ([place]) Lymphocyte abs 1.1 0.8 - 3.3 K/cumm [facility] ([place]) Monocyte abs 0.6 0.2 - 0.8 K/cumm [facility] ([place]) Eosinophil abs 0.2 0.0 - 0.5 K/cumm [facility] ([place]) Basophil abs 0.1 0.0 - 0.1 K/cumm [facility] ([place]) Neutrophil pct 49.7 % [facility] ([place]) Comment: Interpretive Data Percent cell count reference ranges are not reported, since discordance with absolute values may lead to misinterpretation of CBC data. Current Interpretive Data was last revised on 2018. Imm gran pct 0.3 % [facility] ([place]) Comment: Interpretive Data Percent cell count reference ranges are not reported, since discordance with absolute values may lead to misinterpretation of CBC data. Current Interpretive Data was last revised on 2018. Lymphocyte pct 28.1 % [facility] ([place]) Comment: Interpretive Data Percent cell count reference ranges are not reported, since discordance with absolute values may lead to misinterpretation of CBC data. Current Interpretive Data was last revised on 2018. Monocyte pct 15.2 % [facility] ([place]) Comment: Interpretive Data Percent cell count reference ranges are not reported, since discordance with absolute values may lead to misinterpretation of CBC data. Current Interpretive Data was last revised on 2018. Eosinophil pct 5.4 % [facility] ([place]) Comment: Interpretive Data Percent cell count reference ranges are not reported, since discordance with absolute values may lead to misinterpretation of CBC data. Current Interpretive Data was last revised on 2018. Basophil pct 1.3 % [facility] ([place]) Comment: Interpretive Data Percent cell count reference ranges are not reported, since discordance with absolute values may lead to misinterpretation of CBC data. Current Interpretive Data was last revised on 2018. Blood 11/30/2024 6:57 AM LABORATORY VETERINARIAN 11/30/2024 7:02 AM LABORATORY VETERINARIAN Kevin Barone MD LAB BLOOD ORDERA BLES Final Result Performing Organization Address City/State/[facility] Co de Phone Number [facility] ([place]) 1 [facility] [place] [address] * (ABNORMAL) CBC with auto differential (11/30/2024 6:57 AM LABORATORY VETERINARIAN) WBC 3.9 3.8 - 9.9 K/cumm Hgb 14.6 13.0 - 17.5 g/dL [facility] ([place]) Hct 41.6 38.9 - 50.3 % [facility] ([place]) Plt 247 150 - 400 K/cumm [facility] ([place]) MPV 8.7(L) 9.1 - 12.3 fL [facility] ([place]) RBC 4.65 4.30 - 5.80 M/cumm [facility] ([place]) MCV 89.5 81.3 - 96.4 fL [facility] ([place]) MCH 31.4 27.1 - 33.3 pg [facility] ([place]) MCHC 35.1 32.3 - 35.7 g/dL [facility] ([place]) RDW CV 13.9 11.1 - 14.9 % [facility] ([place]) RDW SD 45.1 35.7 - 48.1 fL [facility] ([place]) NRBC abs 0.00 0.00 - 0.01 K/cumm [facility] ([place]) Blood 11/30/2024 6:57 AM LABORATORY VETERINARIAN 11/30/2024 7:02 AM LABORATORY VETERINARIAN Kevin Barone MD LAB BLOOD ORDERA BLES Final Result Performing Organization Address City/State/[facility] Co de Phone Number [facility] ([place]) 1 [facility] [place] [address] * ABO/Rh (11/30/2024 6:57 AM LABORATORY VETERINARIAN) Pathologist [facility] ABO/Rh O Positive Blood 11/30/2024 6:57 AM LABORATORY VETERINARIAN 11/30/2024 7:02 AM LABORATORY VETERINARIAN Narrative [facility] ([place]) - 11/30/2024 7:37 AM LABORATORY VETERINARIAN Has the patient had Daratumumab or Isatuximab in the past 6 months?->Unknown Kevin Barone MD LAB BLOOD BANK T EST ORDERABLES Final Result Performing Organization Address [facility] Co de Phone Number [facility] ([place]) 1 [place] [address] * Antibody screen (11/30/2024 6:57 AM LABORATORY VETERINARIAN) Pathologist [facility] Buddy, indirect, Gel Interpretation Negative ABSC Blood 11/30/2024 6:57 AM LABORATORY VETERINARIAN 11/30/2024 7:02 AM LABORATORY VETERINARIAN Narrative [facility] ([place]) - 11/30/2024 7:37 AM LABORATORY VETERINARIAN Has the patient had Daratumumab or Isatuximab in the past 6 months?->Unknown Kevin Barone MD LAB BLOOD BANK T EST ORDERABLES Final Result Performing Organization Address City/[facility] Co de Phone Number [facility] ([place]) [address] [place] [address] * Basic metabolic panel (11/30/2024 6:57 AM LABORATORY VETERINARIAN) [facility] Sodium 138 135 - 145 mmol/L Potassium, pl 4.2 3.3 - 4.9 mmol/L [facility] ([place]) Chloride 104 97 - 110 mmol/L [facility] ([place]) CO2 23 22 - 32 mmol/L [facility] ([place]) Anion gap 11 2 - 15 mmol/L [facility] ([place]) BUN 25 6 - 25 mg/dL [facility] ([place]) Creatinine 0.96 0.80 - 1.30 mg/dL [facility] ([place]) Glucose 112 70 - 199 mg/dL [facility] ([place]) Comment: Interpretive Data Fasting glucose >/= 126 mg/dl is diagnostic for diabetes. Fasting is defined as no caloric intake for at least 8 hours. Fasting glucose between 100 mg/dl to 125 mg/dl is diagnostic of prediabetes. In a patient with classic symptoms of hyperglycemia or hyperglycemic crisis, a random glucose >/= 200 mg/dl is diagnostic for diabetes. In the absence of unequivocal hyperglycemia, results should be confirmed by repeat testing. The classification and Diagnosis of Diabetes Diabetes Care 2021; 46: S19-S40. Current interpretive data was last revised 2022. Calcium 9.2 8.5 - 10.3 mg/dL [facility] ([place]) Blood 11/30/2024 6:57 AM LABORATORY VETERINARIAN 11/30/2024 7:02 AM LABORATORY VETERINARIAN Kevin Barone MD LAB BLOOD ORDERA BLES Final Result [facility] ([place]) 1 [facility] Department of Laboratories [place], [place] [id number] * PSA screen (08/28/2024 8:08 AM LABORATORY VETERINARIAN) PSA-Total 1.47 <=6.20 ng/mL Comment: Interpretive Data AGE SEX REFERENCE INTERVAL 0 minutes-150 years Female None 0 minutes-49 years Male None 50-59 years Male 0-3.90 60-69 years Male 0-5.40 70-79 years Male 0-6.20 80-150 years Male 0-6.20 The Thu PSA Total assay procedure was used. Results from different manufacturers or methods may not be comparable. Serial testing should be performed using the same method. Current interpretive data last revised 22. Testing performed by: [facility], [address] [place] [address], [place]., [address] Blood 08/28/2024 8:08 AM LABORATORY VETERINARIAN 08/28/2024 12:44 PM LABORATORY VETERINARIAN us Zaina Terry MD LAB BLOOD ORDERABLES Final Result Performing Organization Address City/State/ZIP Co ks Phone Number JENNIFER PINEDA [id number] [facility] Department [place] [address] * COLONOSCOPY (10/27/2020 9:03 AM LABORATORY VETERINARIAN) Anatomical Region Laterality Modality Other Narrative Procedure Note Everardo Huertas MD - 10/27/2020 9:03 AM CST [facility] Patient Name: Matthew Peralta Procedure Date: 10/27/2020 9:03 AM Date of : 1950 Admit Type: Outpatient Age: 70 Gender: Male Attending MD: Everardo Huertas M.D. Room: [facility] ENDOSCOPY ROOM 2 Note Status: Finalized Patient Profile: Refer to note in patient chart for documentation of history and physical. Procedure: Colonoscopy Indications: Last colonoscopy: September 2016, Heme positivestool Referring MD: Fernanda Santiago, F.N.PJulio Cesar, Zaina Terry M.D. Providers: Everardo Huertas M.D. Impression: - Hemorrhoids found on perianal exam. - The entire examined colon is normal. - No specimens collected. Recommendation: - Discharge patient to home. - Resume previous diet. - Continue present medications. - Repeat colonoscopy in 10 years for screeningpurposes. - Return to primary care physician as previously scheduled. Medicines: Propofol per Anesthesia Complications: No immediate complications. Estimated Blood Loss: Estimated blood loss: none. Procedure: Pre-Anesthesia Assessment: - This assessment was completed [Time of Assessment] prior to the administration of sedation. The benefits, risks and alternatives of theprocedure and sedation were discussed and informed consent was obtained. All questions were answered. Please referto the signed informed consent document in the medical record. Bowel prep was administered using a single dose. The bowel preparation used was Miralax. Thebowel preparation used was bisacodyl tablets. The scopewas passed under direct vision. The [id number] was introduced through the anus andadvanced to the the cecum, identified by appendiceal orificeand ileocecal valve. The colonoscopy was performedwithout difficulty. The patient tolerated the procedurewell. The quality of the bowel preparation was adequate to identify polyps 6 mm and larger in size. Findings: Hemorrhoids were found on perianal exam. The colon (entire examined portion) appeared normal. Electronically signed by Everardo Huertas M.D. Everardo Huertas M.D. 10/27/2020 10:41:52 AM Number of Addenda: 0 Note Initiated On: 10/27/2020 9:03 AM Procedure Code(s): --- Professional --- 19510, Colonoscopy, flexible; diagnostic, including collection of specimen(s) by brushing or washing, when performed (separateprocedure) Diagnosis Code(s): --- Professional --- R19.5, Other fecal abnormalities K64.9, Unspecified hemorrhoids CPT copyright 2017 [employer]. All rights reserved. The codes documented in this report are preliminary and upon body and fender mechanic reviewmay be revised to meet current compliance requirements. Recognized by the [employer] for promoting quality in endoscopy us Everardo Huertas MD ENDOSCOPY PROCEDURES Final Re sult * Hepatitis C antibody (08/26/2017 4:42 PM LABORATORY VETERINARIAN) Hep C Ab NON-REACTI VE NON-REACTI VE [facility] [place] SIGNAL TO CUT-OFF 0.09 <1.00 [facility] [place] Blood specimen (specimen) 08/26/2017 4:42 PM LABORATORY VETERINARIAN 08/26/2017 4:42 PM LABORATORY VETERINARIAN Narrative Resulting Agency Comment Performing Organization Information: Site ID: [id number] Name: [facility] Address: [address] [address] Director: Ritesh Holliday D.O., MPH us Zaina Terry MD LAB MICROBIOLOGY - GENERAL ORDERABLES Final Result TERRY SOLAN[facility] - [facility] [place] from Last 3 Months or Most Recently Relevant to Health Maintenance Insurance PHYSICIANS [facility] [place] MEDICARE [employer] [place] MED[place]ARE MEDICARE [employer] [place] MEDICARE PHYSIC[place]ANS [place] [employer] [place] Advance Directives For more information, please contact: [phone] Documents on File Type Date Recorded Patient Chuck Boner Expl anation ADVANCE DIRECTIVE 02/29/2020 DNR ADVANCE DIRECTIVE 03/04/2010 POWER OF A [employer] * Full Code (Latest Code Status on File) Date Activated Date Inactivated Comments 01/31/2025 1:31 PM 01/31/2025 8:08 PM * Full Code Date Activated Date Inactivated Comments 05/06/2021 4:23 PM 05/07/2021 11:40 PM * Full Code Date Activated Date Inactivated Comments 02/23/2021 2:28 PM 02/26/2021 5:21 PM * Full Code Date Activated Date Inactivated Comments 02/22/2021 1:55 PM 02/23/2021 2:28 PM * Full Code Date Activated Date Inactivated Comments 02/22/2021 1:55 PM 02/22/2021 1:55 PM Care Teams Diving Fisher Relationship Specialty Start Date End Date Zaina Terry MD PCP - General 06/15/16 Jonathan Wong MD Surgeon Orthopedic Surgery 08/26/17 Mark Nelson [address] [place] [address] Ophthalmology 08/26/17 Dk Willis MD [address] [place] [address] Consulting Physician Cardiology 11/01/17 Everardo Huertas MD [address] [place] [address] [place] [address] Consulting Physician Gastroenterology 04/11/18 Wayne Dougherty Jr., MD [address] [place] [address] [place] [address] Consulting Physician Orthopedic Surgery 10/06/18 Kevin Barone MD [address] [place] [address] [place] [address] Consulting Physician General Surgery 02/25/21 Turner Ramos MD [address] [place] [address] Consulting Physician Gastroenterology 02/27/21 Mark Lugo MD [address] [place] [address] Surgeon Orthopedic Surgery 07/17/21 Kristina Fonseca PA [address] [place] [address] Physician Social Media Manager Orthopedic Surgery 07/22/21 David Maguire MD [facility] [place] [address] Consulting Physician Otolaryngology 02/01/24
--- OUTSIDE RECORDS SUMMARY | 2025-02-01 19:58 | XMS_ITS | Clinical Summary ---
Author Organization [facility] [address] Address [address] [place] [address] Phone Care Team Providers Care Inpatient Auditor Name Role Phone Zaina Terry MD Primary Care Provider Jonathan Wong MD Unavailable [phone] Mark Nelson OD Unavailable [phone] Dk Willis MD Unavailable [phone] Everardo Huertas MD Unavailable [phone] Ladonna Figueroa MD, Corey George Unavailable [phone] Kimberly Barone MD Unavailable Turner Ramos MD Unavailable [phone] Mark Lugo MD Unavailable [phone] Kristina Fonseca Unavailable [phone] David Maguire MD Unavailable [phone] Allergies No known active allergies Medications cholecalcifero [...] PM CDT): Incidentally found on recent labs. Gunnery/Ordnance Officer in November was 1.1 now 1.3. admits [...] Continued diet as laid out in post Mar handout. We will see the patient back [...] 2 days ago show slight elevation in Gunnery/Ordnance Officer. Stable CBC. No other abnormal findings. Given [...] problems (chest x-ray and EKG today, sees jump iron machine presser next week, has loop recorder implanted, getting [...] loop recorder implantation. He does see his jump iron machine presser Dr. Hunt next week so I have advised him to make them aware of this symptoms as well. He does see Dr. PORRAS in 3 weeks for his annual. 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 Dx; NSVT, Syncope, PVC's, [...] contractions was 1%. Job ID/VF Job ID: [id number] Multiple-type hyperlipidemia 02/29/2020 Sleep-disordered breathing 05/19/2018 Overview (02/29/2020): Eating 500 mg of caffeine daily as of February 2020, we will taper back to 100 and no further testing will be done BPH without urinary obstruction 04/14/2018 Iron deficiency anemia 04/06/2018 Overview (04/07/2018): Added automatically from request for surgery [id number] Assessment & Plan (12/30/2023 8:36 AM CDT): [...] 01/18/2025 Assessment & Plan (09/11/2024 10:54 AM TEST BORING [employer]W CHIEF): We have gone over a more conservative [...] (07/09/2021): Added automatically from request for surgery [id number] Paroxysmal atrial fibrillation 03/25/2021 01/18/2025 Restless leg [...] (09/17/2020): Added automatically from request for surgery [id number] Fecal occult blood test positive 09/17/2020 03/13/2021 Overview (09/17/2020): Added automatically from request for surgery [id number] Right ventricular dysfunction 09/10/2020 10/27/2022 Abnormal echocardiogram [...] information Assessment & Plan (09/03/2020 9:00 AM TEST [employer]ORING [employer] CHIEF): Most likely secondary to GIB as he [...] (04/07/2018): Added automatically from request for surgery [id number] Lumbago 10/05/2017 02/29/2020 Left hip pain 10/05/2017 [...] Pruritus 03/02/2014 08/28/2017 Overview (01/20/2017): Chronic pruritus Encounters Date Type Department Care Team Description 02/01/2025 Telephone [facility] Orthopedics and Sports Medicine [address] [facility] [address] [address] Chicho Musa NP 01/31/2025 8:36 AM CDT Anesthesia Event [facility] Operating Room [address] [place] [address] Josesito Rod DO McDowell, Juri Osmell, MD 01/31/2025 8:30 AM CDT - 01/31/2025 10:55 AM CDT Surgery [facility] Operating Room [address] [place] [address] Mark Lugo MD Right Robotic Assisted Total Knee Arthroplasty 01/31/2025 7:11 AM CDT - 01/31/2025 4:08 PM CDT Hospital Encounter [facility] Operating Room [address] [place] [address] Mark Lugo MD Primary osteoarthritis of right knee (Primary Dx) Discharge Disposition: Discharge to home or self care 01/18/2025 10:00 AM CDT Office Visit [facility] [address] [facility] [address] [place] [address] Nilam Lewis NP Pre-op evaluation (Primary Dx); Abnormal EKG; Mood disorder 01/11/2025 9:10 AM CDT Lab [address] [address] Pre-op testing 01/11/2025 9:06 AM CDT - 01/11/2025 11:59 PM CDT Hospital Encounter [facility] Imaging Center [address] [place] [address] Pre-op testing Discharge Disposition: Discharge to home or self care 01/11/2025 9:06 AM CDT - 01/11/2025 11:59 PM CDT Hospital Encounter [facility] Cardiology [address] [place] [address] Pre-op testing Discharge Disposition: Discharge to home or self care 01/11/2025 Telephone [facility] Orthopedics and Sports Medicine [address] [facility] [address] [place] [address] Vandana Cai PA 01/10/2025 9:45 AM CDT Office Visit [facility] Orthopedics and Sports Medicine [address] [facility] [address] [place] [address] Mark Lugo MD Pre-op testing (Primary Dx); Primary osteoarthritis of right knee; Primary osteoarthritis of left knee 01/10/2025 Telephone [facility] Orthopedics and Sports Medicine [address] [place] [address] [address] [place] [address] Mark Lugo MD 01/10/2025 Orders Only [facility] Sports Medicine [address] [place] [address] [address] [place] [phone] Mark Lugo MD S/P total knee arthroplasty, right (Primary Dx) 01/10/2025 Telephone [facility] Sports Medicine [address] [place] [address] [address] [place] [phone] Mark Lugo MD Surgery Date 12/13/2024 8:40 AM TEST [employer]F Office Visit [facility] [address] [place] [address] [address] [place] [phone] Kayley Foster NP S/P bilateral inguinal hernia repair, follow-up exam (Primary Dx) 11/30/2024 8:00 AM TEST [employer]ING CREW CHIEF - 11/30/2024 9:40 AM TEST [employer] CHIEF Surgery [facility] Operating Room [address] [place] [address] Kimberly Barone MD BILATERAL INGUINAL HERNIA REPAIR WITH MESH - LAPAROSCOPIC ROBOTIC 11/30/2024 7:54 AM TEST [employer] CHIEF Anesthesia Event [facility] Operating Room [address] [place] [address] Urban Lopez MD McDowell, Juri Osmell, MD 11/30/2024 6:28 AM TEST [employer]ING [employer] CHIEF - 11/30/2024 11:06 AM TEST [employer] CHIEF Hospital Encounter [facility] Operating Room [address] [place] [address] Kimberly Barone MD Left inguinal hernia (Primary Dx) Discharge Disposition: Discharge to home or self care 11/17/2024 Orders Only [facility] [address] [place] [phone] Zaina Terry MD Viral URI with cough (Primary Dx) 11/16/2024 Telephone [facility] [address] [place] [address] Zaina Terry MD asking for cough medicine from Last 3 Months Immunizations Immunization Administration Dates Next Due Influenza, Unspecified 08/28/2024(Deferred: Malorie ent Refused) Moderna SARS-CoV-2 Monovalen t Vaccination (12+ YRS) 12/16/2020,11/13/2020 Pneumococcal Conjugate PCV 13 06/10/2016 Pneumococcal Polysaccharide PPV23 08/26/2017 Tdap 03/16/2011 ZOSTER LIVE 01/23/2015 Surgical History Surgery Date Site/Laterality Comments KNEE ARTHROSCOPY Right ELBOW SURGERY x's 2 ROTATOR CUFF REPAIR Right COLONOSCOPY 09/20/2016 Dr. Sullivan (-) ESOPHAGOSCOPY / EGD 04/07/2018 (+) Dr. Sullivan NSAID ulcer bleeding hemoglobin the 6 HM GASTROSCOPY (EGD) 02/24/2020 (+) Dr. Ramos large hiatal hernia with rotation recently bleeding ulcer within the hiatal hernia COLONOSCOPY 10/27/2020 (-) Dr. Huertas ESOPHAGOSCOPY / EGD 02/15/2020 - 03/16/2020 (+) Dr. Ramos large paraesophageal hernia with ulceration and bleeding JOINT REPLACEMENT Bilateral LTHA LAPAROSCOPIC MAR FUNDOPLICATION 05/06/2021 (+) KIMBERLY Flanagan paraesophageal hernia repair TOTAL HIP ARTHROPLASTY 07/22/2021 Right HERNIA REPAIR 11/30/2024 Inguinal Medical History Medical History Date Comments BPH (benign prostatic hyperplasia) Occult blood positive stool Adjustment disorder Depression GERD (gastroesophageal reflux disease) Pruritus 03/02/2014 Chronic pruritus Pneumonia Ventricular tachycardia (HCC) lo op recorder in 2019 and then removed CKD (chronic kidney disease) stage 3, GFR 30-59 ml/min (HCC) 03/02/2020 Creatinine 1.31 new finding as of annual physical February 2020 Anemia due to GI blood loss 02/22/2021 Family History Medical History Relation Name Comments Bipolar disorder Father Suicide Completion Father Prostate cancer Other uncle Breast cancer Sister Cancer Sister Relation Name Status Comments Brother 1 Alive Brother 2 Alive Brother 3 Alive Father (Age 50) Mother Alive Other uncle Alive Sister Alive Social History Tobacco Use Types Packs/Day Years [...] on file Legal Sex Male 6:46 PM TEST [employer] CHIEF Gender Identity Not on file Sexual Orientation Straight 09/10/2020 8: 05 AM TEST [employer]IEF 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 on file Not on fi le Obstetrics History Last Filed Vital Signs Vital Sign Reading [...] 01/31/2025 7:17 AM CDT Plan of Treatment Health Maintenance Due Date Last Done Comments Hepatitis B Screening 1968 Zoster Vaccine (2 of 3) 03/20/2015 01/23/2015 DTaP/Tdap/Td Vaccine (2 - Td or Tdap) 03/16/2021 03/16/2011 Covid-19 Vaccine (4 - 2023-2 5 season) 2024 09/12/2021, 12/16/2020, 11/13/2020 Influenza Vaccine (Season Ended) 2025 Well Visit 65+ 08/28/2025 08/28/2024, 10/17, 03/13/2021, Additional history exists Depression Screening 01/18/2026 01/18/2025, 08/28/2024, 12/06/2022, Additional history exists Fall Risk Assessment 01/31/2026 01/31/2025, 08/28/2024, 10/27/2022, Additional history exists Colon Cancer Screening-CT Colonography 10/27/2030 10/27/2020, 09/20/2016, 09/20/2016 Colon Cancer Screening-Colonoscopy 10/27/2030 10/27/2020, 09/20/2016, 09/20/2016 Hepatitis C Screening Completed 08/26/2017 Pneumococcal vaccine 65+ Completed 08/26/2017, 05/18 Colon Cancer Screening-DNA Stool Discontinued 10/27/2020, 09/20/2016, 09/20/2016 Colon Cancer Screening-FIT Discontinued 10/27, 09/20/2016, 09/20/2016 Colon Cancer Screening-Sigmoidoscopy Discontinued 10/27/2020, 09/20/2016, 09/20/2016 Prostate Cancer Screening-PSA Discontinued , 12/09/2023, 10/27/2022, Additional history exists Medical Devices Implanted Type Area Car Examiner Device Identifier Shelf Expiration Date Model / Serial / Lot [employer] [id number] [place] 56mm Sector Hip Shell Acetabular Gription Sterile Latex Free - [id number] Implanted:Qty: 1 on 07/22/2021 by Mark Lugo MD at [facility] Right: Hip [employer] 05/16/2031 [id number] / / [id number] [employer] [id number] Princeton 56mm 36mm Hip Neutral Liner Acetabular Altrx Sterile Latex Free - [id number] Implanted:Qty: 1 on 07/22/2021 by Mark Lugo MD at [facility] Right: Hip [employer] 10/16/2025 [id number] / / [id number] [employer] 1217-35-500 Princeton 6.5mm 35mm Acetabular Cancellous Screw Bone Sterile - [id number] Implanted:Qty: 1 on 07/22/2021 by Mark Lugo MD at [facility] Right: Hip [employer] 04/15/2031 1217-35-500 / / [id number] [employer] [id number] Actis L107 Mm Collar Hip 6 High Offset Stem Femoral - [id number] Implanted:Qty: 1 on 07/22/2021 by Mark Lugo MD at [facility] Right: Hip [employer] 05/16/2031 [id number] / / [id number] [employer] [id number] Articul/Tyree 36mm Cementless Hip +5mm 14 Taper Head Femoral Latex Free - [id number] Implanted:Qty: 1 on 07/22/2021 by Mark Lugo MD at [facility] Right: Hip [employer] 02/13/2026 [id number] / / [id number] [employer]/C R Bard Mesh Surgical Inguinal Hernia Synthetic Patch 3dmax 4x6in [id number] - [id number] Implanted:Qty: 1 on 11/30/2024 by Kimberly Barone MD at [facility] Left: Abdomen [employer]/C [employer] Bard 06/13/2029 [id number] / / [id number] [employer]/C R Bard Mesh Surgical Mid Anatomical Synthetic Patch 3dmax 4x6in [id number] - [id number] Implanted:Qty: 1 on 11/30/2024 by Kimberly Barone MD at [facility] Right: Abdomen [employer]/C R Bard 08/13/2029 [id number] / / [id number] [employer] Insert Tibial Knee Fixed Rm Posterior Stabilized Attune 8mm Size 7 Polyethylene [id number] - [id number] Implanted:Qty: 1 on 01/31/2025 by Mark Lugo MD at [facility] Right: Knee [employer] [id number] 06/16/2031 [id number] / / [id number] [employer] Attune Cruciate Retain Cementless Knee Right 7 Component Femoral [id number] - [id number] Implanted:Qty: 1 on 01/31/2025 by Mark Lugo MD at [facility] Right: Knee [employer] [id number] 11/16/2034 [id number] / / [id number] [employer] Attune Fb Tib Base Sz 7 Por [id number] - [id number] Implanted:Qty: 1 on 01/31/2025 by Mark Lugo MD at [facility] Right: Knee [employer] [id number] 02/13/2034 [id number] / / [id number] Procedures Procedure Name Priority Date/Time Associated Diagnosis [...] Routine 01/11/2025 9:12 AM CDT Pre-op testing MI AN ELECTIVE ENDOTRACHEAL AIRWAY Routine 11/30/2024 8:12 AM TEST [employer]ORING CREW CHIEF XI INGUINAL HERNIA REPAIR - LAPAROSCOPIC ROBOTIC 11/30/2024 7:54 AM TEST [employer]ING CREW CHIEF Left inguinal hernia ECG 12-LEAD STAT 11/30/2024 7:12 AM TEST B[employer]ING CREW CHIEF EGFR STAT 11/30/2024 6:57 AM TEST [employer]ING CREW CHIEF DIFFERENTIAL AUTO STAT 11/30/2024 6:5 7 AM TEST B[employer]ING CREW CHIEF ANTIBODY SCREEN STAT 11/30/2024 6:57 AM TEST BORING CREW CHIEF ABO/RH STAT 11/30/2024 6:57 AM TEST BORING CREW CHIEF TYPE AND SCREEN STAT 11/30/2024 6:57 AM TEST B[employer]ING CREW CHIEF CBC WITH AUTO DIFFERENTIAL STAT 11/30/2024 6:57 AM TEST BORING CREW CHIEF BASIC METABOLIC PANEL STAT 11/30/2024 6:57 AM TEST BORING CREW CHIEF PSA SCREEN Routine 08/28/2024 8:08 AM TEST B[employer]ING CREW CHIEF Prostate cancer screening COLONOSCOPY 10/27/2020 9:03 AM TEST B[employer]ING CREW CHIEF HEPATITIS C ANTIBODY Routine 08/26/2017 4:42 PM TEST [employer]ING CREW CHIEF Encounter for hepatitis C screening test for [...] Chon Castillo M.D. MF: CHAPO Report ID: [id number] Reading Location: [id number] Procedure Note Chon Castillo MD - 02/01/2025 [...] Chon Castillo M.D. MF: CHAPO Report ID: [id number] Reading Location: [id number] Vandana LEIVA IMG XR PROCEDURES Fin al Result * Spinal Block (01/31/2025 8:52 AM CDT) Narrative Liu Eubanks CRNA - 01/31/2025 8:52 AM CDT Liu Eubanks CRNA 01/31/2025 8:52 AM Spinal Block Patient location: OR Reason for block: primary anesthetic Staff: Placed by: WILLIE:Liu Eubanks CRNA Procedure prep: Preprocedure checklist: patient [...] 34 28 - 38 sec [facility] ([place]) Comment: Interpretive Data Heparin therapeutic range: 66.0 - 100.0 seconds. Range based on correlation with therapeutic heparin activity range of 0.3 - 0.7 Units/mL. Current interpretive data was last revised on 2023. Blood 01/31/2025 7:38 AM CDT 01/31/2025 7:45 AM CDT Mark Lugo MD LAB BLOOD ORDERABLES Fin al Result [facility] [address] [facility] [place] [address] * Protime-INR (01/31/2025 7:38 AM CDT) PT 10.8 9.7 - 13.0 sec [facility]) INR 1.00 0.90 - 1.20 [facility] ([place]) Comment: Interpretive data Oral anticoagulant therapeutic ranges: [...] Fin al Result [facility] ([place]) [address] [facility] [place] [address] * ECG 12 lead (01/11/2025 10:04 AM CDT) 01/11/2025 9:44 AM CDT Narrative [facility] 01/11/2025 10:07 AM CDT Vent Rate: 68 bpm RR Interval: 879 msec MI Interval: 214 msec QRS Duration: 83 msec QT Interval: 410 msec QTC Interval: 427 msec P-R-T [place]: 60 - -66 - 41 degrees IMPRESSION: [...] Lugo MD ECG ORDERABLES Final Re sult Performing Organization Address [facility] Co de Phone Number [facility] * XR Chest PA Lateral 2 View [...] Paulette Rausch D.O. PS: PS Report ID: [id number] Reading Location: [id number] Procedure Note Paulette Rausch, DO - 01/16/2025 EXAM DESCRIPTION: XR CHEST [...] Paulette Rausch D.O. PS: PS Report ID: [id number] Reading Location: [id number] Mark Lugo MD IMG XR PROCEDURES Final [...] MD LAB BLOOD ORDERABLES Fin al Result [facility] [address] [facility] [place] [address] * Differential, auto (01/11/2025 9:12 AM CDT) [...] Neutrophil pct 50.3 % [facility] ([place]) Comment: Interpretive [...] revised on 2018. Lymphocyte pct 30.5 % [facility] ([place]) Comment: Interpretive Data Percent cell count reference ranges are not reported, since discordance with absolute values may lead to misinterpretation of CBC data. Current Interpretive Data was last revised on 2018. Monocyte pct 11.6 % [facility] ([place]) Comment: Interpretive Data Percent cell count reference ranges are not reported, since discordance with absolute values may lead to misinterpretation of CBC data. Current Interpretive Data was last revised on 2018. Eosinophil pct 6.0 % [facility] ([place]) Comment: Interpretive Data Percent cell count reference ranges are not reported, since discordance with absolute values may lead to misinterpretation of CBC data. Current Interpretive Data was last revised on 2018. Basophil pct 1.4 % [facility] ([place]) Comment: Interpretive Data Percent cell count reference ranges are not reported, since discordance with absolute values may lead to misinterpretation of CBC data. Current Interpretive Data was last revised on 2018. Blood 01/11/2025 9:12 AM CDT 01/11/2025 9:30 AM CDT us Mark Lugo MD LAB BLOOD ORDERABLES Fin al Result [facility] ([place] [address] [facility] [place] [address] * Urinalysis reflex to microscopic and culture Urine, clean voided (01/11/2025 9:12 AM CDT) Color, ur Yellow Yellow Clarity, ur Clear Clear [facility] ([place]) Specific gravity, ur 1.017 1.003 - 1.030 [facility] ([place]) pH, urine 6.5 [facility] ([place]) Comment: Interpretive Data U rine pH is affected by diet, medications, systemic acid-base disturbances, and renal tubular function. pH may affect urinary stone formation. For example, urine pH below 6.0 may help reduce the tendency for calcium phosphate stones and pH greater than 6.0 may reduce the tendency for uric acid stone formation. Source: [facility] Current Interpretive Data was last revised [...] 9:12 AM CDT 01/11/2025 9:31 AM CDT Mark Lugo MD LAB MICROBIOLOGY - [facility] AL ORDERABLES Final Result [facility] ([place]) [address] [facility] [place] [address] * CBC with auto differential (01/11/2025 9:12 AM CDT) WBC 4.3 3.8 - 9.9 K/cumm Hgb 15.1 13.0 - 17.5 g/dL [facility] ([place]) Hct 44.7 38.9 - 50.3 % [facility] ([place]) Plt 234 150 - 400 K/cumm [facility] ([place]) MPV 9.1 9.1 - 12.3 fL [facility] ([place]) RBC 4.83 4.30 - 5.80 M/cumm [facility] ([place]) MCV 92.5 81.3 - 96.4 fL [facility] ([place]) MCH 31.3 27.1 - 33.3 pg [facility] ([place]) MCHC 33.8 32.3 - 35.7 g/dL [facility] ([place]) RDW CV 13.6 11.1 - 14.9 % [facility] ([place]) RDW SD 46.6 35.7 - 48.[address] [facility] ([place]) NRBC abs 0.00 0.00 - 0.01 K/cumm [facility] ([place]) Blood 01/11/2025 9:12 AM CDT 01/11/2025 9:30 AM CDT Mark Lugo MD LAB BLOOD ORDERABLES Fin al Result Performing Organization Address [facility] Co de Phone Number [facility] ([place]) [address] [facility] [place] [address] * Hemoglobin A1c (01/11/2025 9:12 AM CDT) Pathologist [facility] Hgb A1C 5.4 4.0 - 5.6 % Estimated Average Glucose 108 mg/dL [facility] ([place]) Comment: The ADA recommends reporting an estimated Average Glucose (eAG) with all Hemoglobin A1c results using the equation derived from a study of 507 normal and diabetic adults. Minority populations were underrepresented and children were not included. (Diabetes Care 31:5368-1707, 2008). The eAG is not equivalent to a fasting glucose. Blood 01/11/2025 9:12 AM CDT 01/11/2025 9:30 AM CDT Mark Lugo MD LAB BLOOD ORDERABLES Fin al Result Performing Organization Address City/[facility]/ZIP Co de Phone Number [facility] ([place]) [address] [facility] [place] [address] * (ABNORMAL) Comprehensive metabolic panel (01/11/2025 9:12 AM CDT) Sodium 137 135 - 145 mmol/L Potassium, pl 4.2 3.3 - 4.9 mmol/L [facility] ([place]) Chloride 101 97 - 110 mmol/L [facility] ([place]) CO2 23 22 - 32 mmol/L [facility] ([place]) Anion gap 13 2 - 15 [...] Bilirubin, total 0.5 0.1 - 1.2 mg/dL [facility] ([place]) Protein, pl 6.7 6.5 - [...] MD LAB BLOOD ORDERABLES Fin al Result [facility] [address] [facility] [place] [address] * MI AN ELECTIVE ENDOTRACHEAL AIRWAY (11/30/2024 8:12 AM TEST [employer]IEF) Narrative Vito Damico CRNA - 11/30/2024 8:12 AM TEST [employer]IEF Vito Damico CRNA 11/30/2024 8:12 AM Airway Patient location: pre-op Urgency: elective Indications for airway management: anesthesia Difficult airway: no Staff: Placed by: CAKE FROSTER: Vito Damico CRNA Emergent airway documentation: Risks [...] * ECG 12 lead (11/30/2024 7:12 AM TEST [employer] CHIEF) 11/30/2024 7:12 AM TEST [employer] CHIEF Narrative [facility] - 11/30/2024 10:09 AM TEST [employer] CHIEF Vent Rate: 58 bpm RR Interval: 1032 msec MI Interval: 192 msec QRS Duration: 86 msec QT Interval: 432 msec QTC Interval: 428 msec P-R-T [place]: 2 - -48 - 9 degrees IMPRESSION: [...] NOTED Electronically Signed By: Elvis Bhakta MD us Kimberly Barone MD ECG ORDERABLES Final Result [facility] * eGFR (11/30/2024 6:57 AM TEST B[employer]ING [employer] CHIEF) eGFR 83 >=60 mL/min/1. 73 m2 Comment: [...] last reviewed 2021. Blood 11/30/2024 6:57 AM TEST [employer]IEF 11/30/2024 7:02 AM TEST [employer]IEF Kimberly Barone MD LAB BLOOD ORDERA BLES Final Result [facility] ([place]) [address] [facility] [place] [address] * Differential, auto (11/30/2024 6:57 AM TEST [employer] CHIEF) Neutrophil abs 1.9 1.5 - 6.5 K/cumm [...] revised on 2018. Blood 11/30/2024 6:57 AM TEST [employer]IEF 11/30/2024 7:02 AM TEST [employer] CHIEF us Kimberly Barone MD LAB BLOOD ORDERA BLES Final Result [facility] ([place]) [address] [facility] [place] [address] * (ABNORMAL) CBC with auto differential (11/30/2024 6:57 AM TEST [employer]ING CRE[employer] CHIEF) WBC 3.9 3.8 - 9.9 K/cumm Hgb 14.6 13.0 - 17.5 g/dL [facility] ([place]) Hct 41.6 38.9 - 50.3 % [facility] ([place]) Plt 247 150 - 400 K/cumm [facility] ([place]) MPV 8.7(L) 9.1 - 12.3 fL [facility] ([place]) RBC 4.65 4.30 - 5.80 M/cumm [facility] ([place]) MCV 89.5 81.3 - 96.4 fL [facility] ([place]) MCH 31.4 27.1 - 33.3 pg [facility] ([place]) MCHC 35.1 32.3 - 35.7 g/dL [facility] ([place]) RDW CV 13.9 11.1 - 14.9 % [facility] ([place]) RDW SD 45.1 35.7 - 48.1 fL [facility] ([place]) NRBC abs 0.00 0.00 - 0.01 K/cumm [facility] ([place]) Blood 11/30/2024 6:57 AM TEST [employer] CHIEF 11/30/2024 7:02 AM TEST [employer] CRE[employer] CHIEF Kimberly Barone MD LAB BLOOD ORDERA BLES Final Result [facility] ([place]) 1 [facility] [place] [address] * ABO/Rh (11/30/2024 6:57 AM TEST BORING CREW CHIEF) ABO/Rh O Positive Blood 11/30/2024 6:57 AM TEST BORING CREW CHIEF 11/30/2024 7:02 AM TEST BORING CREW CHIEF Narrative [facility] ([place]) - 11/30/2024 7:37 AM TEST BORING CREW CHIEF Has the patient had Daratumumab or Isatuximab in the past 6 months?->Unknown Kimberly Barone MD LAB BLOOD BANK T EST ORDERABLES Final Result [facility] ([place]) 1 [facility] [place] [address] * Antibody screen (11/30/2024 6:57 AM TEST BORING CREW CHIEF) Buddy, indirect, Gel Interpretation Negative ABSC Blood 11/30/2024 6:57 AM TEST BORING CREW CHIEF 11/30/2024 7:02 AM TEST BORING CREW CHIEF Narrative [facility] ([place]) - 11/30/2024 7:37 AM TEST BORING CREW CHIEF Has the patient had Daratumumab or Isatuximab in the past 6 months?->Unknown Kimberly Barone MD LAB BLOOD BANK T EST ORDERABLES Final Result [facility]ENN[facility] ([place]) 1 [facility] [place] [address] * Basic metabolic panel (11/30/2024 6:57 AM TEST BORING CREW CHIEF) Sodium 138 135 - 145 mmol/L Potassium, pl 4.2 3.3 - 4.9 mmol/L [facility] ([place]) Chloride 104 97 - 110 mmol/L [facility] ([place]) CO2 23 22 - 32 mmol/L [facility] ([place]) Anion gap 11 2 - 15 mmol/L [facility] ([place]) BUN 25 6 - 25 mg/dL [facility] ([place]) Creatinine 0.96 0.80 - 1.30 mg/dL [facility] ([place]) Glucose 112 70 - 199 mg/dL [facility] ([place]) [...] 8.5 - 10.3 mg/dL [facility] ([place]) Blood 11/30/2024 6:57 AM TEST BORING CREW CHIEF 11/30/2024 7:02 AM TEST BORING CREW CHIEF Kimberly Barone MD LAB BLOOD ORDERA BLES Final Result [facility] ([place]) 1 [facility] Department [place] [address] * PSA screen (08/28/2024 8:08 AM TEST BORING CREW CHIEF) PSA-Total 1.47 <=6.20 ng/mL Comment: Interpretive Data [...] data last revised 22. Testing performed by: [facility], [address] [place] [address]., [address] Blood 08/28/2024 8:08 AM TEST BORING CREW CHIEF 08/28/2024 12:44 PM TEST BORING CREW CHIEF Zaina Terry MD LAB BLOOD ORDERABLES Final Result Performing Organization Address City/[facility] Co de Phone Number JENNIFER [address] [facility] Department of Laboratories [place] [id number] * COLONOSCOPY (10/27/2020 9:03 AM TEST BORING CREW CHIEF) Anatomical Region Laterality Modality Other Narrative Procedure Note Everardo Huertas MD - 10/27/2020 9:03 AM CST [facility] Patient Name: Matthew Peralta Procedure Date: 10/27/2020 9:03 AM Date of : 1950 Admit Type: Outpatient Age: 70 Gender: Male Attending MD: Everardo Huertas M.D. Room[facility] 2 Note Status: Finalized Patient Profile: Refer to note in patient chart for documentation of history and physical. Procedure: Colonoscopy Indications: Last colonoscopy: September 2016, Heme positivestool Referring MD: Reagan Millan, Zaina Terry M.D. Providers: Everardo Huertas M.D. [...] The scopewas passed under direct vision. The [id number] was introduced through the anus andadvanced to [...] 9:03 AM Procedure Code(s): --- Professional --- 95382, Colonoscopy, flexible; diagnostic, including collection of specimen(s) by brushing or washing, when performed (separateprocedure) Diagnosis Code(s): --- Professional --- R19.5, Other fecal abnormalities K64.9, Unspecified hemorrhoids CPT copyright 2017 [employer]. All rights reserved. The codes documented in this report are preliminary and upon cylinder press operator helper reviewmay be revised to meet current compliance requirements. Recognized by the [employer] for promoting quality in endoscopy us Everardo Huertas MD ENDOSCOPY PROCEDURES Final Re sult * Hepatitis C antibody (08/26/2017 4:42 PM TEST BORING CREW CHIEF) Hep C Ab NON-REACTI VE NON-REACTI VE [facility] [place] SIGNAL TO CUT-OFF 0.09 <1.00 [facility] Blood specimen (specimen) 08/26/2017 4:42 PM TEST BORING CREW CHIEF 08/26/2017 4:42 PM TEST BORING CREW CHIEF Narrative Resulting Agency Comment Performing Organization Information: Site ID: [facility] Name: [facility] Address: [address] [place] [id number] Director: Ritesh Holliday D.O., MPH us Zaina Terry MD LAB MICROBIOLOGY - GENERAL ORDERABLES Final Result [facility] [place] from Last 3 Months or Most Recently Relevant to Health Maintenance Insurance [employer]IANS [employer] MEDICARE PH[employer]ICIANS [employer] MEDICARE MEDICARE PH[employer] MEDIC[employer] Advance Directives For more information, please contact: [phone] Documents on File Type Date Recorded 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 ADVANCE DIRECTIVE 02/29/2020 DNR ADVANCE [...] 1:55 PM 02/22/2021 1:55 PM Care Teams Inpatient Auditor Relationship Specialty Start Date End Date Zaina Terry MD PCP - General 06/15/16 Jonathan Wong MD Surgeon Orthopedic Surgery 08/26/17 Mark Nelson OD [address] [place] [address] Ophthalmology 08/26/17 Dk Willis MD [address] [place] [address] Consulting Physician Cardiology 11/01/17 Everardo Huertas MD [address] [facility] [address] [place] [address] Consulting Physician Gastroenterology 04/11/18 Wayne Dougherty Jr., MD [address] [facility] [address] [place] [place] [address] Consulting Physician Orthopedic Surgery 10/06/18 Kimberly Barone MD [address] [facility] [address] [place] [place] [address] Consulting Physician General Surgery 02/25/21 Turner Ramos MD [address] [place] [address] [address] [place] [place] [address] Consulting Physician Gastroenterology 02/27/21 Mark Lugo MD [address] [place] [address] [address] [place] [address] Surgeon Orthopedic Surgery 07/17/21 Kristina Fonseca PA [address] [facility] [address] [place] [place] [address] Physician Social Media Marketing Specialist Orthopedic Surgery 07/22/21 David Maguire MD [address] [place] [address] Consulting Physician Otolaryngology 02/01/24
--- OUTSIDE RECORDS SUMMARY | 2025-02-01 19:58 | XMS_ITS | Encounter Summary ---
Author Organization [facility] Healthcare Address [address] [place] [address] Care Team Providers Care General Road Foreman Name Role Phone Zaina Terry MD Primary Care Provider + [phone] Jonathan Wong MD Unavailable [phone] Mark Nelson OD Unavailable [phone] Dk Willis MD Unavailable [phone] Everardo Huertas MD Unavailable [phone] Ladonna Figueroa MD, Wayne Maguire Unavailable [phone]- [phone] Kimberly Barone MD Unavailable Turner Ramos MD Unavailable [phone] Mark Lugo MD Unavailable [phone] Kristina Fonseca Unavailable [phone] David Maguire MD Unavailable [phone] Reason for Visit * Auth/Cert (Routine) Specialty Diagnoses / Procedures Referred By Contac t Referred To Contact Diagnoses Primary osteoarthritis of right knee Primary osteoarthritis of right knee [M17.11] Procedures [place] ARTHRP KNE CONDYLE&PLATU MEDIAL&LAT COMPARTMENTS Right Total Knee Arthroplasty- Robotic, Depuy- Attune, Velys, Cooling Unit-[facility], 1 Liter Beta Rinse, Pt to Go Home Referral ID Status Reason Start Date Expiration Date Visits Re quested Visits Authorized [id number] 1 1 Encounter Details Date Type Department Care Team (Late st Contact Info) Description 01/31/2025 8:30 AM CDT - 01/31/2025 10:55 AM CDT Surgery [facility] Operating Room 1 [place] [address] Mark Lugo MD [address] [place] [address] [address] [place] [address] Right Robotic Assisted Total Knee Arthroplasty Social History Tobacco Use Types Packs/Day Years [...] on file Legal Sex Male 6:46 PM RESEARCH FELLOW Gender Identity Not on file Sexual Orientation Straight 09/10/2020 8: 05 AM RESEARCH FELLOW 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 Never 01/31/2025 7:46 AM ELVIAT Anupam Madison RN documented as of this encounter Discharge Instructions * Attachments The following attachments cannot be sent through Care Everywhere. * Spinal Anesthesia (Discharge Care) (Citizen [place]) * General Anesthesia (Discharge Care) ([place]) * How to Use an Incentive Spirometer (Discharge Care) ([place]izen [place]) * How to Choose and Use a Walker (Lead Javascript Engineer) ([place]izen [place]) * How to Use a Gait Belt (Lead Javascript Engineer) ([place]izen [place]) * Ascorbic Acid (Vitamin C) (By mouth) ([place]izen [place]) * Aspirin (By mouth) ([place]izen [place]) * Celecoxib (By mouth) ([place]izen [place]) * Iron Supplements (By mouth) ([place]izen [place]) * Ondansetron (By mouth, Into the mouth) ([place]izen [place]) * Oxycodone/Acetaminophen (By mouth) ([place]) * Laxative, Stimulant Combination (By mouth) ([place]izen [place]) documented in this encounter Medications at Time [...] by mouth daily 30 capsule 01/31/2025 5 aspirin 81 mg enteric coated tablet Take [...] mouth daily with breakfast 30 tablet 01/31/2025 5 ondansetron (ZOFRAN) 8 mg tabletIndication s:Prevention of [...] kidney disease) stage 3, GFR 30-59 ml/min ([facility]) 03/02/2020 Creatinine 1.31 new finding as of annual physical February 2020 Depression GERD (gastroesophageal reflux disease) Occult blood positive stool Pneumonia Pruritus 03/02/2014 Chronic pruritus Ventricular tachycardia ([facility]) loop recorder in 2019 and then removed 01/31/25 1359 General Chart Reviewed Yes Session Type Evaluation [...] Equipment-Currently Using None Prior Function Level of [place] Independent with ADLs;Independent functional transfers;Independent with ambulation;Independent with homemaking with ambulation Lives With Spouse Receives Help From Spouse/Significant other Driving Yes Mode of Transportation Car;Driven by self ADL Assistance Independent Instrumental ADL (IADL) Assistance 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 [...] 01/31/2025 3:15 PM CDT Physical Therapy 01/31/25 5873 General Chart Reviewed Yes Session Type Evaluation Safe Environment Patient found in supine;Arm band checked Physical Therapy-Patient Goal return home Precautions Precautions Fall risk Home Living Type of Home House Home Layout One level Home Access Stairs to enter with rails Entrance Stairs-Number of Steps 2 Home Mobility Equipment-Available Wheeled walker Prior Function Level of [place] Independent with ADLs;Independent functional transfers;Independent with ambulation [...] Knee Arthroplasty- Robotic, Depuy- Attune, Velys, Cooling Unit-[facility], 1 Liter BetaRinse, Pt to Go Home [...] Severe advanced right knee tricompartmental osteoarthritis with qyjs-pv-olor contact, osteophyte formation, subluxation. Assessment/Plan Matthew was [...] , CR, pressfit, midvastus approach Surgeon: Mark Lugo MD Safety Supervisor: Rodney Cai PA-C, NP Anesthesia: spinal Tourniquet time: 0 minutes Estimated blood loss: approximately 150 cc Condition: stable to PACU Implanted components Implant Name Type Inv. Item Serial No. Extension Work Instructor Lot No. LRB No. Used Action [employer] Attune Cruciate Retain Cementless Knee Right 7 Component Femoral [id number] [employer] Attune Cruciate Retain Cementless Knee Right 7 Component [id number] [employer] [id number] Right 1 Implanted [employer] Attune Fb Tib Base Sz 7 Por [id number] [employer] Attune Fb Tib Base Sz 7 Por [id number] [employer] [id number] Right 1 Implanted [employer] Insert Tibial Knee Fixed Rm Posterior Stabilized Attune 8mm Size 7 Polyethylene [id number] - [id number] [employer] Insert Tibial Knee Fixed Rm Posterior Stabilized Attune 8mm Size 7 Polyethylene [id number] [employer] [id number] Right 1 Implanted Technique: I met the patient in the preoperative holding room and signed the appropriate knee. Informed consent was obtained. A consent form was signed on the chart. The patient was transported to the operatingroom. The appropraite lower extremity was prepped and draped in [...] on the tibia, the medial and lateral malleoliof the ankle, the midpoint of the tibia, the midpoint of the medial plateau of the tibia, the midpoint of the lateral plateau of the tibia, the rotation line of the tibia, white sides line of the femur, the midpoint of the distal femur, painting of the femoral regions including the distal medial con dyle, distal lateral condyle, posterior medial condyle, posterior lateral condyle, and the anteriorcortical line of the femur. Once these points [...] - TELEPHONE ONLY, NO PHYSICAL EXAM - [facility] Date: 01/24/25 PAT RN completed assessment with the patient. Matthew Tian is a 74 y.o. male Right Total Knee Arthroplasty- Robotic, Depuy- Attune, Velys, Cooling Unit-[facility] Care, 1 Liter BetaRinse, Pt to Go Home [...] kidney disease) stage 3, GFR 30-59 ml/min ([facility]) 03/02/2020 Creatinine 1.31 new finding as of annual physical February 2020 Depression GERD (gastroesophageal reflux disease) Occult blood positive stool Pneumonia Pruritus 03/02/2014 Chronic pruritus Ventricular tachycardia ([facility]) loop recorder in 2019 and then removed [...] a week Notes: Least expensive available on [facility] citalopram (CeleXA) 20 mg tablet -- 10/26/24 -- Zaina Terry MD TAKE 1 TABLET BY MOUTH DAILY traZODone (DESYREL) 50 mg tablet -- 01/23/25 -- Zaina Terry MD TAKE 1 TABLET (50 MG TOTAL) BY MOUTH NIGHTLY NEEDED FOR SLEEP Implants Type Not Specified [employer] [id number] [place] 56mm Sector Hip Shell Acetabular Gription Sterile Latex Free - [id number] - Implanted (Right) Hip Inventory item: [employer] [place] 56mm Sector Hip Shell Acetabular Gription Sterile Latex Free [id number] Model/Cat number: [id number] Extension Work Instructor: [employer] Lot number: [id number] Size: 56mm OD As of 07/22/2021 Status: Implanted [employer] [id number] [place] 56mm 36mm Hip Neutral Liner Acetabular Altrx Sterile Latex Free - [id number] - Implanted (Right) Hip Inventory item: [employer] [place] 56mm 36mm Hip Neutral Liner Acetabular Altrx Sterile Latex Free [id number] Model/Cat number: [id number] Extension Work Instructor: Dep[employer] Lot number: [id number] Size: NEUTRAL 36MM ID/56MMOD As of 07/22/2021 Status: Implanted [employer] [id number] [place] 6.5mm 35mm Acetabular Cancellous Screw Bone Sterile - [id number] - Implanted (Right) Hip Inventory item: [employer] [place] 6.5mm 35mm Acetabular Cancellous Screw Bone [id number] Model/Cat number: [id number] Extension Work Instructor: [employer] Lot number: [id number] Size: 6.5MM X 35MM As of 07/22/2021 Status: Implanted [employer] [id number] Actis L107 Mm Collar Hip 6 High Offset Stem Femoral - [id number] -Implanted (Right) Hip Inventory item: [employer] Actis L107 Mm Collar Hip 6 High Offset Stem Femoral [id number] Model/Cat number: [id number] Extension Work Instructor: [employer] Lot number: [id number] Size: 6 high collar As of 07/22/2021 Status: Implanted [employer] [id number] Articul/[place] 36mm Cementless Hip +5mm 12/14 Taper Head Femoral Latex Free - [id number] - Implanted (Right) Hip Inventory item: [employer] Articul/geneva 36mm Cementless Hip +5mm 09/29 Taper Head Femoral Latex Free [id number] Model/Cat number: [id number] Extension Work Instructor: [employer] Lot number: [id number] Size: +5.0/36mm karley, 09/29dia As of 07/22/2021 Status: Implanted [employer]/C R Bard Mesh Surgical Inguinal Hernia Synthetic Patch 3dmax 4x6in [id number] - [id number] - Implanted (Left) Abdomen Inventory item: [employer]/C R BARD Mesh Surgical Inguinal Hernia Synthetic Patch 3dmax 4x6in [id number] Model/Cat number: [id number] Extension Work Instructor: [employer]/C R Bard Lot number: [id number] As of 11/30/2024 Status: Implanted [employer]/C R Bard Mesh Surgical Mid Anatomical Synthetic Patch 3dmax 4x6in [id number] - [id number] -Implanted (Right) Abdomen Inventory item: [employer]/C R BARD Mesh Surgical Mid Anatomical Synthetic Patch 3dmax 4x6in [id number]/Cat number: [id number] Extension Work Instructor: [employer]/C R Bard Lot number: [id number] As of 11/30/2024 Status: Implanted TRAVEL/EXPOSURE Travel [...] that you and your doctor have chosen [facility] for your surgery. We hope that the [...] Take as prescribed Use no make-up, nail chinese, lotions, oils or powders on your skin. [...] down the [place]ia until you see the [employer]/coffee shop, there will be elevators to the [...] Chon Castillo M.D. MF: CHAPO Report ID: [id number] Reading Location: [id number] Procedure Note Chon Castillo MD - 02/01/2025 [...] Chon Castillo M.D. MF: CHAPO Report ID: [id number] Reading Location: [place] [address] Vandana LEIVA IMG XR PROCEDURES Fin al Result * aPTT (01/31/2025 7:38 AM CDT) aPTT 34 28 - 38 sec JENNIFER SOLIT[facility] ([place]) Comment: Interpretive Data Heparin therapeutic range: 66.0 - 100.0 seconds. Range based on correlation with therapeutic heparin activity range of 0.3 - 0.7 Units/mL. Current interpretive data was last revised on 2023. Blood 01/31/2025 7:38 AM CDT 01/31/2025 7:45 AM CDT Mark Lugo MD LAB BLOOD ORDERABLES Fin al Result JENN[facility]ER [facility] ([place]) 1 [facility] Department [place] [address] * Protime-INR (01/31/2025 7:38 AM CDT) PT 10.8 9.7 - 13.0 sec [facility]ENN[facility]ER [facility] ([place]) INR 1.00 0.90 - 1.20 [facility] ([place]) Comment: Interpretive data Oral anticoagulant therapeutic ranges: Venous thromboembolism prophylaxis or treatment: 2.0-3.0 CARDIOLOGY Standard range: 2.0-3.0 High-intensity range: 2.5-3.5 Refer to indication-specific guidelines for appropriate target ranges for prosthetic heart valve replacement. Current interpretive data was last revised on 2019. Blood 01/31/2025 7:38 AM CDT 01/31/2025 7:45 AM CDT us Mark Lugo MD LAB BLOOD ORDERABLES Fin al Result [facility]ENN[facility]ER [facility] ([place]) 1 [facility] Department [place] [address] documented in this encounter Visit Diagnoses Diagnosis Primary osteoarthritis of right knee- Primary Primary osteoarthritis of right knee Primary osteoarthritis of right knee documented in this encounter Admitting Diagnoses Diagnosis Primary osteoarthritis of right knee documented in this encounter Administered Medications Inactive Administered Medications - up to 3 most recent administrations Medication Order MAR Action Action Date Dose Rate Site acetaminophen (TYLENOL) tablet 1,000 mg 1,000 mg, oral, Once, On Phyllis 01/31/25 at 0800, For 1 dose, Pre-Op, Indications: Pre-Emptive AnalgesiaIndications:Pre -Emptive Analgesia Given 01/31/2025 7:46 AM CDT 1,000 mg BUPivacaine (MARCAINE) 0.25 % (2.5 mg/mL) preservative free injection As needed, Starting on Phyllis 01/31/25 at 0934, Intra-Op Given 01/31/2025 9:34 AM CDT 30 mL Surgical Site BUPivacaine (MARCAINE) 50 mg, morphine 10 mg, EPINEPHrine 0.3 mg, ketorolac (TORADOL) 30 mg in sodium chloride 0.9% 20 mL topical solution As needed, Starting on Phyllis 01/31/25 at 1009, Intra-Op Given 01/31/2025 10:09 AM CDT 28.97 mL Surgical Site ceFAZolin (ANCEF) 2,000 mg/20 mL in sterile water (premix) 2,000 mg 2,000 mg, intravenous, at 400 mL/hr, Administer over 3 Minutes, Every 8 hours, First dose on Phyllis 01/31/25 at 1730, For 2 doses, Beginning 8 hours after last rica-operative dose., Indications: Prophylaxis, SurgicalIndications:Prop hylaxis, Surgical Given 01/31/2025 3:47 PM CDT 2,000 [...] on Phyllis 01/31/25 at 1331, Indications: PainIndications:Pain povidone-iodine (BETADINE) 118 mL in sodium chloride 0.9% 1,000 mL irrigation As needed, Starting on Phyllis 01/31/25 at 0934, Intra-Op Given 01/31/2025 9:34 AM CDT Surgical Site sodium chloride 0.9% infusion 125 mL/hr, intravenous, Continuous, Starting on Phyllis 01/31/25 at 1415, Phase I & Post-op Floor sodium chloride 0.9% irrigation As needed, Starting on Phyllis 01/31/25 at 0934, Intra-Op Given 01/31/2025 9:34 AM CDT 3,000 mL Surgical Site Given 01/31/2025 9:32 AM CDT 1,000 mL [place] rgical Site documented in this encounter Active and Recently [...] Ordered Date First Ordered Date BUPivacaine (MARCAINE) 50 mg , morphine 10 mg, EPINEPHrine 0.3 mg, ketorolac (TORADOL) 30 mg in sodium chloride 0.9% 20 mL topical solution 01/31/2025 Carrier Fluids for Secondary Infusion - [...] 1 01/31/2025 oxyCODONE (ROXICODONE) tablet 5 mg 2024 oxyCODONE-acetaminophen (PER COCET) 5-325 mg per tablet 1 tablet 1 01/31/2025 oxyCODONE-acetaminophen (PER COCET) 5-325 mg per tablet 2 tablet 1 01/31/2025 prochlorperazine (COMPAZINE) injection 5 mg 1 01/31/2025 sodium chloride 0.9% flush 0.5-20 mL 01/15 sodium chloride 0.9% infusion 1 01/31/2025 traMADoL (ULTRAM) tablet 50 mg 01/31/2025 tranexamic acid (CYKLOKAPRON ) 1,000 mg/100 mL (10 mg/mL) in sodium chloride (premix) 1,000 mg 1 01/31/2025 General Supply Count Last Ordered Date First Or dered Date WALKER 01/31/2025 Diet Count Last Ordered Date First [...] 01/31/2025 documented in this encounter Care Teams General Road Foreman Relationship Specialty Start Date End Date Zaina Terry MD PCP - General 06/15/16 Jonathan Wong MD Surgeon Orthopedic Surgery 08/26/17 Mark Nelson OD [address] [place] [address] Ophthalmology 08/26/17 Dk Willis MD [address] [place] [address] Consulting Physician Cardiology 11/01/17 Everardo Huertas MD [address] [place] [address] [place] [address] Consulting Physician Gastroenterology 04/11/18 Wayne Dougherty Jr., MD [address] [place] [address] [place] [address] Consulting Physician Orthopedic Surgery 10/06/18 Kimberly Barone MD [address] [place] [address] [place] [address] Consulting Physician General Surgery 02/25/21 Turner Ramos MD [address] [facility] [place] [address] Consulting Physician Gastroenterology 02/27/21 Mark Lugo MD [address] [facility] [place] [address] Surgeon Orthopedic Surgery 07/17/21 Kristina Fonseca PA [address] [facility] [place] [address] Physician Safety Supervisor Orthopedic Surgery 07/22/21 David Maguire MD [facility] [place] [address] Consulting Physician Otolaryngology 02/01/24 documented as of this encounter
--- OUTSIDE RECORDS SUMMARY | 2025-02-01 19:58 | XMS_ITS | Encounter Summary ---
Author Organization [facility] Healthcare Address [address] [place] [address] Care Team Providers Care Cane Pusher Name Role Phone Zaina Terry MD Primary Care Provider Jonathan Wong MD Unavailable [phone] Mark Nelson OD Unavailable [phone] Dk Willis MD Unavailable Everardo Huertas MD Unavailable +[phone] Ladonna Figueroa MD, Wayne Maguire Unavailable + [phone] Kevin Barone MD Unavailable Turner Ramos MD Unavailable [phone] Mark Lugo MD Unavailable [phone] Kristina Fonseca Unavailable [phone] David Maguire MD Unavailable [phone] Encounter Details Date Type Department Care Team (Late st Contact Info) Description 10/08/2020 Telephone [facility] Radiology [address] [place] [address] Dk Willis MD [facility] [address] [place] [address] Social History Tobacco Use Types Packs/Day Years [...] on file Legal Sex Male 6:46 PM TOPOLOGY TEACHER Gender Identity Not on file Sexual Orientation Straight 09/10/2020 8: 05 AM TOPOLOGY TEACHER 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 on file Not on fi le documented as of this encounter Plan of Treatment Not on file documented as of this encounter Visit Diagnoses Not on filedocumented in this encounter Additional Health Concerns Infection Onset Date Last Indicated Resolved Time COVID: Suspected 10/14/2024 10/14/2024 10/14/2024 3:28 PM TOPOLOGY TEACHER Influenza, adult 10/14/2024 10/14/2024 10/21/2024 3:05 AM TOPOLOGY TEACHER documented as of this encounter Care Teams Cane Pusher Relationship Specialty Start Date End Date Zaina Terry MD PCP - General 06/15/16 Jonathan Wong MD Surgeon Orthopedic Surgery 08/26/17 Mark Nelson OD [address] [place] [address] Ophthalmology 08/26/17 Dk Willis MD [address] [place] [address] Consulting Physician Cardiology 11/01/17 Everardo Huertas MD [address] [place] [address] DR SIMMS JOS[address] [place] [address] Consulting Physician Gastroenterology 04/11/18 Wayne Dougherty Jr., MD [address] [place] [address] DR ADAMS Ryder JOS[address] [place] [address] Consulting Physician Orthopedic Surgery 10/06/18 Kevin Barone MD [address] [place] [address] DR ADAMS Ryder [address] [place] [address] Consulting Physician General Surgery 02/25/21 Turner Ramos MD [address] [place] [address] DR ADAMS Ryder [address] [place] [address] Consulting Physician Gastroenterology 02/27/21 Mark Lugo MD [address] [place] [address] DR ADAMS Ryder JOS[address] [place] [address] Surgeon Orthopedic Surgery 07/17/21 Kristina Fonseca PA [address] [place] [address] DR ADAMS Ryder [address] [place] [address] Physician [employer] Orthopedic Surgery 07/22/21 David Maguire MD [address] [place] [address] Consulting Physician Otolaryngology 02/01/24 documented as of this encounter
[2025-02-01] MEDS: ONDANSETRON INJ 4 MG/2 ML VIAL (20:05)
--- NOTE | 2025-02-01 20:33 | ED.GENADULT ---
HPI - General Adult General Chief complaint: Urogenital-Male Stated complaint: urinary retention after surgery Time Seen by Provider: 02/01/25 20:21 History of Present Illness HPI narrative: 74-year-old male presents emergency department for evaluation for urinary retention. Patient did have surgery on his knee yesterday has had decreased urinary output today. Patient denies any prior history of urinary retention. Patient states he is able to urinate some but feels that he has increased abdominal pain and unable to urinate. Patient has also had intermittent issues with constipation. Related Data Home Medications ?Medication ?Instructions ?Recorded ?Confirmed ?Last Taken ?Type citalopram 40 mg tablet (Celexa) 40 mg PO DAILY 11/17/20 02/05/22 02/04/22 History Allergies Allergy/AdvReac Type Severity Reaction Status Date / Time No Known Allergies Allergy Mild Verified 02/01/25 20:02 Review of Systems Review of Systems: All systems reviewed & are unremarkable except as noted in HPI and below PMFSH Past Medical History Medical History NSVT (nonsustained ventricular tachycardia) Paroxysmal atrial fibrillation Syncope Surgical History Surgical History Status post placement of implantable loop recorder Social History Social History Alcohol intake: never Exam Narrative: APPEARANCE: Uncomfortable appearing HEAD: normocephalic, atraumatic. EYES: PERRLA/EOMI, conjunctivae clear. NOSE: Normal no drainage EARS:TMS clear with good light reflex. THROAT: Pharynx clear, no exudate. NECK: Supple. No adenopathy, no masses. RESPIRATORY: Airway patent, respirations nonlabored. Clear to auscultation bilaterally, no rales, rhonchi, wheezing. CARDIOVASCULAR: Regular rate and rhythm without murmurs rubs or gallops. ABDOMINAL: Soft, nontender, nondistended, normal bowel sounds MUSCULOSKELETAL: Moves all extremities. Strength/ROM intact, No edema, No calf tenderness. NEURO: Alert. Cranial nerves II through XII intact. Grossly intact SKIN: Warm, dry. Normal Color Course Vital Signs Vital signs: Vital Signs Temperature 97.8 F 02/01/25 19:57 Pulse Rate 77 02/01/25 19:57 Respiratory Rate 16 02/01/25 19:57 Blood Pressure 120/77 02/01/25 19:57 Pulse Oximetry 97 02/01/25 19:57 Oxygen Delivery Room Air 02/01/25 19:57 Temperature 97.8 F 02/01/25 19:57 Pulse Rate 72 02/01/25 22:53 Respiratory Rate 18 02/01/25 22:53 Blood Pressure 135/78 02/01/25 22:53 Pulse Oximetry 95 02/01/25 22:53 Oxygen Delivery Room Air 02/01/25 19:57 Medical Decision Making MDM Narrative Medical decision making narrative: 74-year-old male presents emergency department for evaluation for urinary retention. Patient did have approximately 800 mL of retained urine. Patient did feel improved after placement of the Mullen catheter. Patient was still complaining of issues with constipation so patient was treated with a soapsuds enema. Patient will be discharged home with the Mullen catheter and patient was started on Flomax. Patient will be encouraged follow-up with Urology. Family was updated the results of the workup. Differential Diagnosis Differential Diagnosis: UTI, large prostate, constipation Vital Signs Vital Signs: Vital Signs Temperature 97.8 F 02/01/25 19:57 Pulse Rate 77 02/01/25 19:57 Respiratory Rate 16 02/01/25 19:57 Blood Pressure 120/77 02/01/25 19:57 Pulse Oximetry 97 02/01/25 19:57 Oxygen Delivery Room Air 02/01/25 19:57 Temperature 97.8 F 02/01/25 19:57 Pulse Rate 72 02/01/25 22:53 Respiratory Rate 18 02/01/25 22:53 Blood Pressure 135/78 02/01/25 22:53 Pulse Oximetry 95 02/01/25 22:53 Oxygen Delivery Room Air 02/01/25 19:57 Lab Data Lab results reviewed: Yes I reviewed the patient's lab results. Labs: Lab Results 02/01/25 Range/Units 20:41 Urine Color Yellow (Yellow) Urine Appearance Clear (Clear) Urine pH 5.5 (5.0-9.0) Ur Specific [place] 1.010 (1.001-1.035) Urine Protein Negative (Negative) mg/dL Urine Glucose (UA) Negative (Negative) mg/dL Urine Ketones Negative (Negative) mg/dL Ur Blood (Man) Negative (Negative) Urine Nitrate Negative (Negative) Urine Bilirubin Negative (Negative) Urine Urobilinogen 0.2 (<2.0) mg/dL Leukocyte Esterase Rfl Negative (Negative) LIZ/UL Discharge Plan Discharge Clinical Impression: Acute retention of urine, Constipation Patient Disposition: Home Condition: Stable Instructions: Antibiotic Form, Constipation (ED), Mullen Catheter Placement and Care (ED) Additional Instructions: Flomax as directed until completed. Mullen catheter care as directed. Have close follow-up with Urology. If you have any worsening symptoms then please call or return to the emergency department. Patient Language: Lithuanian Prescriptions: New tamsulosin [Flomax] 0.4 mg capsule 0.4 mg PO DAILY 14 Days Qty: 14 0RF No Action citalopram [Celexa] 40 mg tablet 40 mg PO DAILY Follow-up/Referrals: Morgan Grijalva MD [Physician] - Yuliawestwego,MD Zaina [Primary Care Provider] -
--- OUTSIDE RECORDS SUMMARY | 2025-02-01 20:44 | XMS_ITS | Encounter Summary ---
Author Organization [facility] ts Address [address] [place] [address] Phone Care Team Providers Care Manager Internet Retails Sales Name Role Phone Zaina Terry MD Primary Care Provider [phone] Jonathan Wong MD Unavailable Mark Nelson OD Unavailable [phone] Dk Willis MD Unavailable [phone] Everardo Huertas MD Unavailable [phone] Ladonna Figueroa MD, Wayne Maguire Unavailable [phone] Kevin Barone MD Unavailable Turner Ramos MD Unavailable [phone] Mark Lugo MD Unavailable [phone] Kristina Fonseca Unavailable [phone] David Maguire MD Unavailable [phone] Encounter Details Date Type Department Care Team (Late st Contact Info) Description 10/27/2020 Orders Only [facility] [address] [place] [address] Scanning, Provider Social History Tobacco [...] on file Legal 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 Gender Identity Not on file Sexual Orientation Straight 09/10/2020 8: 05 AM RANGE MECHANIC Occupation Industry Job Start Date Job End [...] COVID: Suspected 10/14/2024 10/14/2024 10/14/2024 3:28 PM RANGE MECHANIC Influenza, adult 10/14/2024 10/14/2024 10/21/2024 3:05 AM RANGE MECHANIC documented as of this encounter Care Teams Manager Internet Retails Sales Relationship Specialty Start Date End Date Zaina Terry MD PCP - General 06/15/16 Jonathan Wong MD Surgeon Orthopedic Surgery 08/26/17 Mark Nelson OD [address] [place] [address] Ophthalmology 08/26/17 Dk Willis MD [address] [place] [address] Consulting Physician Cardiology 11/01/17 Everardo Huertas MD [address] [facility] [address] ADAMS [address] [place] [address] Consulting Physician Gastroenterology 04/11/18 Wayne Dougherty Jr., MD [address] [place] [address] DR ADAMS Ryder [place] [place] [address] Consulting Physician Orthopedic Surgery 10/06/18 Kevin Barone MD [address] [facility] [address] ADAMS Ryder [place] [place] [address] Consulting Physician General Surgery 02/25/21 Turner Ramos MD [address] [place] [address] DR ADAMS Ryder [place] [place] [address] Consulting Physician Gastroenterology 02/27/21 Mark Lugo MD [address] [place] [address] DR ADAMS Ryder [place] [place] [address] Surgeon Orthopedic Surgery 07/17/21 Kristina Fonseca PA [address] [facility] [place] [address] Physician Conveyor Belt Operator Orthopedic Surgery 07/22/21 David Maguire MD [facility] [place] [address] Consulting Physician Otolaryngology 02/01/24 documented as of this encounter
--- OUTSIDE RECORDS SUMMARY | 2025-02-01 20:44 | XMS_ITS | Encounter Summary ---
Author Organization [facility] Healthcare Address [address] [place] [address] Care Team Providers Care Shot Packer Name Role Phone Zaina Terry MD Primary Care Provider [phone] Jonathan Wong MD Unavailable [phone] Mark Nelson OD Unavailable [phone] Dk Willis MD Unavailable [phone] Everardo Huertas MD Unavailable [phone] Ladonna Figueroa MD, Wayne Maguire Unavailable [phone] Kevin Barone MD Unavailable Turner Ramos MD Unavailable [phone] Mark Lugo MD Unavailable Kristina Fonseca Unavailable [phone] David Maguire MD Unavailable [phone] Encounter Details Date Type Department Care Team (Late st Contact Info) Description 02/01/2025 Telephone [facility] Medical Group Orthopedics and Sports Medicine [address] [place] [address] [address] [place] [address] Chicho Musa NP [address] [place] [address] [facility] [address] [place] [address] Social History Tobacco Use Types Packs/Day Years [...] on file Legal 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 Gender Identity Not on file Sexual Orientation Straight 09/10/2020 8: 05 AM PROGRAM MANAGEMENT MANAGER Occupation Industry Job Start Date Job End [...] on filedocumented in this encounter Care Teams Shot Packer Relationship Specialty Start Date End Date Zaina Terry MD PCP - General 06/15/16 Jonathan Wong MD Surgeon Orthopedic Surgery 08/26/17 Mark Nelson OD [address] [place] [address] Ophthalmology 08/26/17 Dk Willis MD [address] [place] [address] Consulting Physician Cardiology 11/01/17 Everardo Huertas MD [address] [place] [address] [place] [address] Consulting Physician Gastroenterology 04/11/18 Wayne Dougherty Jr., MD [address] [place] [address] [place] [address] Consulting Physician Orthopedic Surgery 10/06/18 Kevin Barone MD [address] [place] [address] [place] [address] Consulting Physician General Surgery 02/25/21 Turner Ramos MD [address] [place] [address] [place] [address] Consulting Physician Gastroenterology 02/27/21 Mark Lugo MD [address] [place] [address] [place] [address] Surgeon Orthopedic Surgery 07/17/21 Kristina Fonseca PA [address] [place] [address] [place] [address] Physician Warehouse Consultant Orthopedic Surgery 07/22/21 David Maguire MD [address] [place] [address] Consulting Physician Otolaryngology 02/01/24 documented as of this encounter
--- OUTSIDE RECORDS SUMMARY | 2025-02-01 20:44 | XMS_ITS | Encounter Summary ---
Author Organization [facility] Healthcare Address [address] [place] [address] Care Team Providers Care Transport Conductor Name Role Phone Zaina Terry MD Primary Care Provider Jonathan Wong MD Unavailable [phone] Mark Nelson OD Unavailable [phone] Dk Willis MD Unavailable [phone] Everardo Huertas MD Unavailable [phone] Ladonna Figueroa MD, Wayne Maguire Unavailable + [phone] Kevin Barone MD Unavailable Turner Ramos MD Unavailable [phone] Mark Lugo MD Unavailable [phone] Kristina Fonseca Unavailable [phone] David Maguire MD Unavailable [phone] Encounter Details Date Type Department Care Team (Late st Contact Info) Description 10/08/[address] 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 on file Not on fi le documented as of this encounter Plan of Treatment Not on file documented as of this encounter Visit Diagnoses Not on filedocumented in this encounter Additional Health Concerns Infection Onset Date Last Indicated Resolved Time COVID: Suspected 10/14/2024 10/14/2024 10/14/2024 3:28 PM VENEER JOINTER OPERATOR Influenza, adult 10/14/2024 10/14/2024 10/21/2024 3:05 AM VENEER JOINTER OPERATOR documented as of this encounter Care Teams Transport Conductor Relationship Specialty Start Date End Date Zaina Terry MD PCP - General 06/15/16 Jonathan Wong MD Surgeon Orthopedic Surgery 08/26/17 Mark Nelson OD [address] [place] [address] Ophthalmology 08/26/17 Dk Willis MD [address] [place] [address] Consulting Physician Cardiology 11/01/17 Everardo Huertas MD [address] [place] [address] DR SIMMS JOS[address] [place] [address] Consulting Physician Gastroenterology 04/11/18 Wayne Dougherty Jr., MD [address] [place] [address] DR ADAMS Ryder JOS[address] [place] [address] Consulting Physician Orthopedic Surgery 10/06/18 Kevin Barone MD [address] [place] [address] DR ADAMS Ryder [place] [place] [address] Consulting Physician General Surgery 02/25/21 Turner Ramos MD [address] [place] [address] DR ADAMS Ryder [place] [place] [address] Consulting Physician Gastroenterology 02/27/21 Mark Lugo MD [address] [place] [address] DR ADAMS Ryder J[address] [place] [address] Surgeon Orthopedic Surgery 07/17/21 Kristina Fonseca PA [address] [place] [address] DR ADAMS Ryder [address] [place] [address] Physician Junior Sales Assistant Orthopedic Surgery 07/22/21 David Maguire MD [address] [place] [address] Consulting Physician Otolaryngology 02/01/24 documented as of this encounter
--- OUTSIDE RECORDS SUMMARY | 2025-02-01 20:44 | XMS_ITS | Clinical Summary ---
Author Organization [facility] [address] Address [address] [place] [address] Phone Care Team Providers Care Information Assurance Manager Name Role Phone Zaina Terry MD Primary Care Provider Jonathan Wong MD Unavailable [phone] Mark Nelson OD Unavailable [phone] Dk Willis MD Unavailable [phone] Everardo Huertas MD Unavailable [phone] Ladonna Figueroa MD, Corey George Unavailable [phone] Kimberly Barone MD Unavailable Turner Ramos MD Unavailable [phone] Mark Lugo MD Unavailable [phone] Kristina Fonseca Unavailable [phone] David Maguire MD Unavailable [phone] Allergies No known active allergies Medications cholecalcifero [...] PM CDT): Incidentally found on recent labs. Brand Planner in November was 1.1 now 1.3. admits [...] 2 days ago show slight elevation in Brand Planner. Stable CBC. No other abnormal findings. Given [...] problems (chest x-ray and EKG today, sees supervisor scrap preparation next week, has loop recorder implanted, getting [...] loop recorder implantation. He does see his supervisor scrap preparation Dr. Hunt next week so I have advised him to make them aware of this symptoms as well. He does see Dr. PORRAS in 3 weeks for his annual. Status post placement of implantable loop record er 11/17/2020 Overview (03/11/2022): [employer] Implantable Loop Recorder. Dx; NSVT, Syncope, PVC's, [...] contractions was 1%. Job ID/VF Job ID: [id number] Multiple-type hyperlipidemia 02/29/2020 Sleep-disordered breathing 05/19/2018 Overview (02/29/2020): Eating 500 mg of caffeine daily as of February 2020, we will taper back to 100 and no further testing will be done BPH without urinary obstruction 04/14/2018 Iron deficiency anemia 04/06/2018 Overview (04/07/2018): Added automatically from request for surgery [id number] Assessment & Plan (12/30/2023 8:36 AM CDT): [...] 01/18/2025 Assessment & Plan (09/11/2024 10:54 AM SURVEY FIELD TECHNICIAN): We have gone over a more conservative [...] (07/09/2021): Added automatically from request for surgery [id number] Paroxysmal atrial fibrillation 03/25/2021 01/18/2025 Restless leg [...] (09/17/2020): Added automatically from request for surgery [id number] Fecal occult blood test positive 09/17/2020 03/13/2021 Overview (09/17/2020): Added automatically from request for surgery [id number] Right ventricular dysfunction 09/10/2020 10/27/2022 Abnormal echocardiogram [...] information Assessment & Plan (09/03/2020 9:00 AM SURVEY FIELD TECHNICIAN): Most likely secondary to GIB as he [...] (04/07/2018): Added automatically from request for surgery [id number] Lumbago 10/05/2017 02/29/2020 Left hip pain 10/05/2017 [...] Type Department Care Team Description 02/01/2025 Telephone [facility] [address] [facility] [address] [address] Chicho Musa NP 01/31/2025 8:36 AM CDT Anesthesia Event [facility] Operating Room [address] [place] [address] Josesito Rod DO McDowell, Juri Osmell, MD 01/31/2025 8:30 AM CDT - 01/31/2025 10:55 AM CDT Surgery [facility] 1 [place] [address] Mark Lugo MD Right Robotic Assisted Total Knee Arthroplasty 01/31/2025 7:11 AM CDT - 01/31/2025 4:08 PM CDT Hospital Encounter [facility] [address] [place] [address] Mark Lugo MD Primary osteoarthritis of right knee (Primary Dx) Discharge Disposition: Discharge to home or self care 01/18/2025 10:00 AM CDT Office Visit [facility] [address] [facility] [address] [place] [address] Nilam Lewis NP Pre-op evaluation (Primary Dx); Abnormal EKG; Mood disorder 01/11/2025 9:10 AM CDT Lab [address] [address] Pre-op testing 01/11/2025 9:06 AM CDT - 01/11/2025 11:59 PM CDT Hospital Encounter [facility] 1 [place] [address] Pre-op testing Discharge Disposition: Discharge to home or self care 01/11/2025 9:06 AM CDT - 01/11/2025 11:59 PM CDT Hospital Encounter [facility] 1 [place] [address] Pre-op testing Discharge Disposition: Discharge to home or self care 01/11/2025 Telephone [facility] Orthopedics and Sports Medicine [address] [facility] [address] [place] [address] Vandana Cai PA 01/10/2025 9:45 AM CDT Office Visit [facility] Sports Medicine [address] [facility] [address] [place] [address] Mark Lugo MD Pre-op testing (Primary Dx); Primary osteoarthritis of right knee; Primary osteoarthritis of left knee 01/10/2025 Telephone [facility] [address] [place] [address] [address] [place] [address] Mark Lugo MD 01/10/2025 Orders Only [facility] [address] [place] [address] [address] [place] [address] Mark Lugo MD S/P total knee arthroplasty, right (Primary Dx) 01/10/2025 Telephone [facility] [address] [place] [address] [address] [place] [address] Mark Lugo MD Surgery Date 12/13/2024 8:40 AM SURVEY FIELD TECHNICIAN Office Visit [facility] [address] [place] [address] [address] [place] [phone] Kayley Foster NP S/P bilateral inguinal hernia repair, follow-up exam (Primary Dx) 11/30/2024 8:00 AM SURVEY FIELD TECHNICIAN - 11/30/2024 9:40 AM SURVEY FIELD TECHNICIAN Surgery [facility] 1 [place] [address] Kimberly Barone MD BILATERAL INGUINAL HERNIA REPAIR WITH MESH - LAPAROSCOPIC ROBOTIC 11/30/2024 7:54 AM SURVEY FIELD TECHNICIAN Anesthesia Event [facility] 1 [place] [address] Urban Lopez MD McDowell, Juri Osmell, MD 11/30/2024 6:28 AM SURVEY FIELD TECHNICIAN - 11/30/2024 11:06 AM SURVEY FIELD TECHNICIAN Hospital Encounter [facility] 1 [place] [address] Kimberly Barone MD Left inguinal hernia (Primary Dx) Discharge Disposition: Discharge to home or self care 11/17/[address] [facility] [address] [place] [phone] Zaina Terry MD Viral URI with cough (Primary Dx) 11/16/[address] [facility] [address] [place] [address] Zaina Terry MD asking for cough medicine [...] on file Legal Sex Male 6:46 PM SURVEY FIELD TECHNICIAN Gender Identity Not on file Sexual Orientation Straight 09/10/2020 8: 05 AM SURVEY FIELD TECHNICIAN Occupation Industry Job Start Date Job End [...] history exists Medical Devices Implanted Type Area Cottrell Blower Device Identifier Shelf Expiration Date Model / Serial / Lot [employer] [id number] Lincoln 56mm Sector Hip Shell Acetabular Gription Sterile Latex Free - [id number] Implanted:Qty: 1 on 07/22/2021 by Mark Lugo MD at [facility] Right: Hip [employer] 05/16/2031 [id number] / / [id number] [employer] [id number] Lincoln 56mm 36mm Hip Neutral Liner Acetabular Altrx Sterile Latex Free - [id number] Implanted:Qty: 1 on 07/22/2021 by Mark Lugo MD at [facility] Right: Hip [employer] 10/16/2025 [id number] / / [id number] [employer] 1217-35-500 Lincoln 6.5mm 35mm Acetabular Cancellous Screw Bone Sterile - [id number] Implanted:Qty: 1 on 07/22/2021 by Mark Lugo MD at [facility] Right: Hip [employer] 04/15/2031 1217-35-500 / / [id number] Dep[employer] [id number] Actis L107 Mm Collar Hip 6 High Offset Stem Femoral - [id number] Implanted:Qty: 1 on 07/22/2021 by Mark Lugo MD at [facility] Right: Hip [employer] 05/16/2031 [id number] / / [id number] Dep[employer] [id number] Articul/Tyree 36mm Cementless Hip +5mm 14 Taper Head Femoral Latex Free - [id number] Implanted:Qty: 1 on 07/22/2021 by Mark Lugo MD at [facility] Right: Hip [employer] 02/13/2026 [id number] / / [id number] [employer]/C R Bard Mesh Surgical Inguinal Hernia Synthetic Patch 3dmax 4x6in [id number] - [id number] Implanted:Qty: 1 on 11/30/2024 by Kimberly [place] MD at [facility] Left: Abdomen [employer]/C R Bard 06/13/2029 [id number] / / [id number] [employer]/C R Bard Mesh Surgical Mid Anatomical Synthetic Patch 3dmax 4x6in [id number] - [id number] Implanted:Qty: 1 on 11/30/2024 by Kimberly [place] MD at [facility] Right: Abdomen [employer]/C R Bard 08/13/2029 [id number] / / [id number] Dep[employer] Insert Tibial Knee Fixed Rm Posterior Stabilized Attune 8mm Size 7 Polyethylene [id number] - [id number] Implanted:Qty: 1 on 01/31/2025 by Mark Lugo MD at [facility] Right: Knee [employer] [id number] 06/16/2031 [id number] / / [id number] Dep[employer] Attune Cruciate Retain Cementless Knee Right 7 Component Femoral [id number] - [id number] Implanted:Qty: 1 on 01/31/2025 by Mark Lugo MD at [facility] Right: Knee [employer] [id number] 11/16/2034 [id number] / / [id number] Dep[employer] Attune Fb Tib Base Sz 7 Por [id number] - [id number] Implanted:Qty: 1 on 01/31/2025 by Mark Lugo MD at [facility] Right: Knee [employer] [id number] 02/13/2034 [id number] / / [id number] Procedures Procedure Name Priority Date/Time Associated Diagnosis [...] Routine 01/11/2025 9:12 AM CDT Pre-op testing IA AN ELECTIVE ENDOTRACHEAL AIRWAY Routine 11/30/2024 8:12 AM SURVEY FIELD TECHNICIAN XI INGUINAL HERNIA REPAIR - LAPAROSCOPIC ROBOTIC 11/30/2024 7:54 AM SURVEY FIELD TECHNICIAN Left inguinal hernia ECG 12-LEAD STAT 11/30/2024 7:12 AM SURVEY FIELD TECHNICIAN EGFR STAT 11/30/2024 6:57 AM SURVEY FIELD TECHNICIAN DIFFERENTIAL AUTO STAT 11/30/2024 6:5 7 AM SURVEY FIELD TECHNICIAN ANTIBODY SCREEN STAT 11/30/2024 6:57 AM SURVEY FIELD TECHNICIAN ABO/RH STAT 11/30/2024 6:57 AM SURVEY FIELD TECHNICIAN TYPE AND SCREEN STAT 11/30/2024 6:57 AM SURVEY FIELD TECHNICIAN CBC WITH AUTO DIFFERENTIAL STAT 11/30/2024 6:57 AM SURVEY FIELD TECHNICIAN BASIC METABOLIC PANEL STAT 11/30/2024 6:57 AM SURVEY FIELD TECHNICIAN PSA SCREEN Routine 08/28/2024 8:08 AM SURVEY FIELD TECHNICIAN Prostate cancer screening COLONOSCOPY 10/27/2020 9:03 AM SURVEY FIELD TECHNICIAN HEPATITIS C ANTIBODY Routine 08/26/2017 4:42 PM SURVEY FIELD TECHNICIAN Encounter for hepatitis C screening test for [...] Chon Castillo M.D. MF: CHAPO Report ID: [id number] Reading Location: [id number] Procedure Note Chon Castillo MD - 02/01/2025 [...] Chon Castillo M.D. MF: CHAPO Report ID: [id number] Reading Location: [id number] Vandana LEIVA IMG XR PROCEDURES Fin al [...] 34 28 - 38 sec [facility] Comment: Interpretive Data Heparin therapeutic range: 66.0 - 100.0 seconds. Range based on correlation with therapeutic heparin activity range of 0.3 - 0.7 Units/mL. Current interpretive data was last revised on 2023. Blood 01/31/2025 7:38 AM CDT 01/31/2025 7:45 AM CDT Mark Lugo MD LAB BLOOD ORDERABLES Fin al Result [facility] [address] [facility] [place] [address] * Protime-INR (01/31/2025 7:38 AM CDT) PT 10.8 9.7 - 13.0 sec [facility] INR 1.00 0.90 - 1.20 [facility] Comment: Interpretive data Oral anticoagulant therapeutic ranges: [...] Fin al Result [facility] ([place]) [address] [facility] [place] [address] * ECG 12 lead (01/11/2025 10:04 AM CDT) 01/11/2025 9:44 AM CDT Narrative [facility] 01/11/2025 10:07 AM CDT Vent Rate: 68 bpm RR Interval: 879 msec IA Interval: 214 msec QRS Duration: 83 msec QT Interval: 410 msec QTC Interval: 427 msec P-R-T [place]oe: 60 - -66 - 41 degrees IMPRESSION: [...] ORDERABLES Final Re sult Performing Organization Address [facility] Co de Phone Number [facility] * XR Chest PA Lateral 2 [...] Paulette Rausch D.O. PS: PS Report ID: [id number] Reading Location: [id number] Procedure Note Paulette Rausch, DO - 01/16/2025 [...] Paulette Rausch D.O. PS: PS Report ID: [id number] Reading Location: [id number] Mark Lugo MD IMG XR PROCEDURES Final [...] MD LAB BLOOD ORDERABLES Fin al Result [facility] [address] [facility] [place] [address] * Differential, auto (01/11/2025 9:12 AM CDT) [...] on 2018. Basophil pct 1.4 % [facility] Comment: Interpretive Data Percent cell count reference ranges are not reported, since discordance with absolute values may lead to misinterpretation of CBC data. Current Interpretive Data was last revised on 2018. Blood 01/11/2025 9:12 AM CDT 01/11/2025 9:30 AM CDT us Mark Lugo MD LAB BLOOD ORDERABLES Fin al Result [facility] [address] [facility] [place] [address] * Urinalysis reflex to microscopic and culture Urine, clean voided (01/11/2025 9:12 AM CDT) Color, ur Yellow Yellow Clarity, ur Clear Clear [facility] ([place]) Specific gravity, ur 1.017 1.003 - 1.030 [facility] pH, urine 6.5 [facility] ([place]) Comment: Interpretive Data U rine pH is affected by diet, medications, systemic acid-base disturbances, and renal tubular function. pH may affect urinary stone formation. For example, urine pH below 6.0 may help reduce the tendency for calcium phosphate stones and pH greater than 6.0 may reduce the tendency for uric acid stone formation. Source: [facility] Current Interpretive Data was last revised [...] CDT Mark Lugo MD LAB MICROBIOLOGY - [facility] AL ORDERABLES Final Result [facility] ([place]) [address] [facility] [place] [address] * CBC with auto differential (01/11/2025 9:12 [...] RDW CV 13.6 11.1 - 14.9 % [facility] ([place]) RDW SD 46.6 35.7 - 48.1 fL [facility] ([place]) NRBC abs 0.00 0.00 - 0.01 K/cumm [facility] ([place]) Blood 01/11/2025 9:12 AM CDT 01/11/2025 9:30 AM CDT Mark Lugo MD LAB BLOOD ORDERABLES Fin al Result Performing Organization Address [facility] Co de Phone Number [facility] ([place]) [address] [facility] [place] [address] * Hemoglobin A1c (01/11/2025 9:12 AM CDT) Pathologist [facility] Hgb A1C 5.4 4.0 - 5.6 % Estimated Average Glucose 108 mg/dL [facility] ([place]) Comment: The ADA recommends reporting an estimated Average Glucose (eAG) with all Hemoglobin A1c results using the equation derived from a study of 507 normal and diabetic adults. Minority populations were underrepresented and children were not included. (Diabetes Care 31:1019-9435, 2008). The eAG is not equivalent to a fasting glucose. Blood 01/11/2025 9:12 AM CDT 01/11/2025 9:30 AM CDT Mark Lugo MD LAB BLOOD ORDERABLES Fin al Result Performing Organization Address City/[facility]/ZIP Co de Phone Number [facility] ([place]) [address] [facility] [place] [address] * (ABNORMAL) Comprehensive metabolic panel (01/11/2025 9:12 AM CDT) Sodium 137 135 - 145 mmol/L Potassium, pl 4.2 3.3 - 4.9 mmol/L [facility] ([place]) Chloride 101 97 - 110 mmol/L [facility] ([place]) CO2 23 22 - 32 mmol/L [facility] ([place]) Anion gap 13 2 - 15 [...] Bilirubin, total 0.5 0.1 - 1.2 mg/dL [facility] Protein, pl 6.7 6.5 - [...] MD LAB BLOOD ORDERABLES Fin al Result [facility] ([place]) [address] [facility] [place] [address] * IA AN ELECTIVE ENDOTRACHEAL AIRWAY (11/30/2024 8:12 AM SURVEY FIELD TECHNICIAN) Narrative Vito Damico CRNA - 11/30/2024 8:12 AM SURVEY FIELD TECHNICIAN Vito Damico CRNA 11/30/2024 8:12 AM Airway Patient location: pre-op Urgency: elective Indications for airway management: anesthesia Difficult airway: no Staff: Placed by: [employer]: Vito Damico CRNA Emergent airway documentation: Risks [...] * ECG 12 lead (11/30/2024 7:12 AM SURVEY FIELD TECHNICIAN) 11/30/2024 7:12 AM SURVEY FIELD TECHNICIAN Narrative [facility] - 11/30/2024 10:09 AM SURVEY FIELD TECHNICIAN Vent Rate: 58 bpm RR Interval: 1032 msec IA Interval: 192 msec QRS Duration: 86 msec QT Interval: 432 msec QTC Interval: 428 msec P-R-T Conetoe: 2 - -48 - 9 degrees IMPRESSION: [...] Kimberly [place] MD ECG ORDERABLES Final Result [facility] * eGFR (11/30/2024 6:57 AM SURVEY FIELD TECHNICIAN) eGFR 83 >=60 mL/min/1. 73 m2 Comment: [...] last reviewed 2021. Blood 11/30/2024 6:57 AM SURVEY FIELD TECHNICIAN 11/30/2024 7:02 AM SURVEY FIELD TECHNICIAN Kimberly [place] MD LAB BLOOD ORDERA BLES Final Result [facility] ([place]) [address] [facility] [place] [address] * Differential, auto (11/30/2024 6:57 AM SURVEY FIELD TECHNICIAN) Neutrophil abs 1.9 1.5 - 6.5 K/cumm [...] revised on 2018. Blood 11/30/2024 6:57 AM SURVEY FIELD TECHNICIAN 11/30/2024 7:02 AM SURVEY FIELD TECHNICIAN us Kimberly [place] MD LAB BLOOD ORDERA BLES Final Result [facility] ([place]) [address] [facility] [place] [address] * (ABNORMAL) CBC with auto differential (11/30/2024 6:57 AM SURVEY FIELD TECHNICIAN) WBC 3.9 3.8 - 9.9 K/cumm Hgb [...] [facility] ([place]) Blood 11/30/2024 6:57 AM SURVEY FIELD TECHNICIAN 11/30/2024 7:02 AM SURVEY FIELD TECHNICIAN Kimberly [place] MD LAB BLOOD ORDERA BLES Final Result [facility] ([place]) [address] [facility] [place] [address] * ABO/Rh (11/30/2024 6:57 AM SURVEY FIELD TECHNICIAN) ABO/Rh O Positive Blood 11/30/2024 6:57 AM SURVEY FIELD TECHNICIAN 11/30/2024 7:02 AM SURVEY FIELD TECHNICIAN Narrative [facility] ([place] - 11/30/2024 7:37 AM SURVEY FIELD TECHNICIAN Has the patient had Daratumumab or Isatuximab in the past 6 months?->Unknown Kimberly Barone MD LAB BLOOD BANK T EST ORDERABLES Final Result [facility] ([place]) [address] [facility] [place] [address] * Antibody screen (11/30/2024 6:57 AM SURVEY FIELD TECHNICIAN) Buddy, indirect, Gel Interpretation Negative ABSC Blood 11/30/2024 6:57 AM SURVEY FIELD TECHNICIAN 11/30/2024 7:02 AM SURVEY FIELD TECHNICIAN Narrative [facility] ([place] - 11/30/2024 7:37 AM SURVEY FIELD TECHNICIAN Has the patient had Daratumumab or Isatuximab in the past 6 months?->Unknown Kimberly Barone MD LAB BLOOD BANK T EST ORDERABLES Final Result [facility] ([place] [address] [facility] [place] [address] * Basic metabolic panel (11/30/2024 6:57 AM SURVEY FIELD TECHNICIAN) Sodium 138 135 - 145 mmol/L Potassium, [...] [facility] ([place]) Blood 11/30/2024 6:57 AM SURVEY FIELD TECHNICIAN 11/30/2024 7:02 AM SURVEY FIELD TECHNICIAN Kimberly [place] MD LAB BLOOD ORDERA BLES Final Result [facility] [address] [facility] [place] [address] * PSA screen (08/28/2024 8:08 AM SURVEY FIELD TECHNICIAN) PSA-Total 1.47 <=6.20 ng/mL Comment: Interpretive Data [...] data last revised 22. Testing performed by: [facility], [address] [place] [address]., [id number] Blood 08/28/2024 8:08 AM SURVEY FIELD TECHNICIAN 08/28/2024 12:44 PM SURVEY FIELD TECHNICIAN Zaina Terry MD LAB BLOOD ORDERABLES Final Result Performing Organization Address City/[facility] Co de Phone Number [facility] [address] [facility] Department of Laboratories [place] [phone] * COLONOSCOPY (10/27/2020 9:03 AM SURVEY FIELD TECHNICIAN) Anatomical Region Laterality Modality Other Narrative Procedure Note Everardo Huertas MD - 10/27/2020 9:03 AM CST [facility] Patient Name: Matthew Peralta Procedure Date: 10/27/2020 9:03 AM Date of : 1950 Admit Type: Outpatient Age: 70 Gender: Male Attending MD: Everardo Huertas M.D. [facility] Note Status: Finalized Patient [...] The scopewas passed under direct vision. The [id number] was introduced through the anus andadvanced to [...] 9:03 AM Procedure Code(s): --- Professional --- 66794, Colonoscopy, flexible; diagnostic, including collection of specimen(s) by brushing or washing, when performed (separateprocedure) Diagnosis Code(s): --- Professional --- R19.5, Other fecal abnormalities K64.9, Unspecified hemorrhoids CPT copyright 2017 [employer]. All rights reserved. The codes documented in this report are preliminary and upon care management associate reviewmay be revised to meet current compliance requirements. Recognized by the [employer] for promoting quality in endoscopy us Everardo Huertas MD ENDOSCOPY PROCEDURES Final Re sult * Hepatitis C antibody (08/26/2017 4:42 PM SURVEY FIELD TECHNICIAN) Hep C Ab NON-REACTI VE NON-REACTI VE [facility] SIGNAL TO CUT-OFF 0.09 <1.00 [facility] Blood specimen (specimen) 08/26/2017 4:42 PM SURVEY FIELD TECHNICIAN 08/26/2017 4:42 PM SURVEY FIELD TECHNICIAN Narrative Resulting Agency Comment Performing Organization Information: Site ID: [facility] Name: [facility] Address: [address] [place] [address] Director: Ritesh Holliday D.O., MPH us Zaina Terry MD LAB MICROBIOLOGY - GENERAL ORDERABLES Final Result [facility] [place] from Last 3 Months or Most Recently Relevant to Health Maintenance Insurance [employer] MEDICARE [employer] MEDICARE MEDICARE [facility] Address: [address] [address] [place] [address] [employer] MEDICARE [employer] Advance Directives For more information, please contact: [phone] Documents on File Type Date Recorded Patient House Mother Expl anation ADVANCE DIRECTIVE 02/29/2020 DNR ADVANCE [...] 1:55 PM 02/22/2021 1:55 PM Care Teams Information Assurance Manager Relationship Specialty Start Date End Date Zaina Terry MD PCP - General 06/15/16 Jonathan Wong MD Surgeon Orthopedic Surgery 08/26/17 Mark Nelson OD [address] [place] [address] Ophthalmology 08/26/17 Dk Willis MD [address] [place] [address] Consulting Physician Cardiology 11/01/17 Everardo Huertas MD [address] [facility] [facility] [address] [place] [place] [address] Consulting Physician Gastroenterology 04/11/18 Wayne Dougherty Jr., MD [address] [facility] [address] [place] [place] [address] Consulting Physician Orthopedic Surgery 10/06/18 Kimberly [place] MD [address] [facility] [place] [address] Consulting Physician General Surgery 02/25/21 Turner Ramos MD [address] [place] [address] [address] [place] [place] [address] Consulting Physician Gastroenterology 02/27/21 Mark Lugo MD [address] [place] [address] DR [address] [place] [address] Surgeon Orthopedic Surgery 07/17/21 Kristina Fonseca PA [address] [facility] [place] [address] Physician Director Family Orthopedic Surgery 07/22/21 David Maguire MD [address] [place] [address] Consulting Physician Otolaryngology 02/01/24
--- OUTSIDE RECORDS SUMMARY | 2025-02-01 20:44 | XMS_ITS | Encounter Summary ---
Author Organization [facility] Address [address] [place] [address] Phone Care Team Providers Care Rn Gyn Name Role Phone Zaina Terry MD Primary Care Provider + [phone] Jonathan Wong MD Unavailable [phone] Matthew Cole Unavailable Unavail able Wes Oreilly MD Unavailable + Mark Nelson OD Unavailable [phone] Shelley Figueroa MD, Duy Dunaway Unavailable [phone] Dk Willis MD Unavailable [phone] Everardo Huertas MD Unavailable [phone] Ladonna Figueroa MD, Wayne Maguire Unavailable +- [phone] Kevin Barone MD Unavailable Turner Ramos MD Unavailable [phone] Mark Lugo MD Unavailable [phone] Kristina Fonseca Unavailable [phone] David Maguire MD Unavailable +[phone] Encounter Details Date Type Department Care Team (Late st Contact Info) Description 09/05/2017 Orders Only [facility] [address] [place] [address] Zaina Terry MD [address] [place] [address] Social History Tobacco Use Types Packs/Day Years Used Date Smoking Tobacco: Never Smokeless Tobacco: Never Alcohol Use Standard Drinks/Week Comments No 0 (1 standard drink = 0.6 oz pur e alcohol) Sex and Gender Information Value Date Recorded Sex Assigned at Not on file Legal 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 Gender Identity Not on file Sexual Orientation Straight 09/10/2020 8: 05 AM SIZING MACHINE 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 on file Not on fi le documented as of this encounter Plan of Treatment Not on file documented as of this encounter Procedures Procedure Name Priority Date/Time Associated Diagnosis Comments SCAN - RADIOLOGY/IMAGING 09/05/2017 3:06 PM SIZING MACHINE OPERATOR documented in this encounter Results * SCAN - RADIOLOGY/IMAGING (09/05/2017 3:06 PM SIZING MACHINE OPERATOR) Anatomical Region Laterality Modality Other Zaina Terry MD Final Resu lt documented in this encounter Visit Diagnoses Not on filedocumented in this encounter Additional Health Concerns Infection Onset Date Last Indicated Resolved Time COVID: Suspected 09/05/2020 09/05/2020 09/06/2020 12:29 AM SIZING MACHINE OPERATOR Respiratory Infection (SUMAYA), contact + droplet Comment:Automatically added due to negative COVID-19 result. 09/06/2020 09/06/2020 09/20/2020 3:0 6 AM SIZING MACHINE OPERATOR COVID: Suspected 10/14/2024 10/14/2024 10/14/2024 3:28 PM SIZING MACHINE OPERATOR Influenza, adult 10/14/2024 10/14/2024 10/21/2024 3:05 AM SIZING MACHINE OPERATOR documented as of this encounter Care Teams Rn Gyn Relationship Specialty Start Date End Date Zaina Terry MD PCP - General 06/15/16 Jonathan Wong MD Surgeon Orthopedic Surgery 08/26/17 Matthew Cole Gastroenterology 08/26/17 09/12/20 Wes Oreilly MD [address] [place] [address] Consulting Physician Gastroenterology 08/26/17 0 Mark Nelson OD [address] [place] [address] Ophthalmology 08/26/17 Duy Rosa Jr., MD [address] [place] [address] Consulting Physician Cardiovascular Disease 08/28/17 1 11/12/19 Dk Willis MD [address] [place] [address] Consulting Physician Cardiology 11/01/17 Everardo Huertas MD [address] [place] [address] [address] [place] [address] Consulting Physician Gastroenterology 04/11/18 Wayne Dougherty Jr., MD [address] [place] [address] [address] [place] [address] Consulting Physician Orthopedic Surgery 10/06/18 Kevin Barone MD [address] [place] [address] [address] [place] [address] Consulting Physician General Surgery 02/25/21 Turner Ramos MD [address] [address] Consulting Physician Gastroenterology 02/27/21 Mark Lugo MD [address] [place] [address] Surgeon Orthopedic Surgery 07/17/21 Kristina Fonseca PA [address] [place] [address] Physician Cnc Wood Lathe Operator Orthopedic Surgery 07/22/21 David Maguire MD [address] [place] [address] Consulting Physician Otolaryngology 02/01/24 documented as of this encounter
--- OUTSIDE RECORDS SUMMARY | 2025-02-01 20:44 | XMS_ITS | Encounter Summary ---
Author Organization [facility] Healthcare Address [address] [place] [address] Care Team Providers Care Karate Teacher Name Role Phone Zaina Terry MD Primary Care Provider + [phone] Jonathan Wong MD Unavailable [phone] Mark Nelson OD Unavailable [phone] Dk Willis MD Unavailable [phone] Everardo Huertas MD Unavailable [phone] Ladonna Figueroa MD, Wayne Maguire Unavailable +- [phone] Kimberly Barone MD Unavailable Turner Ramos MD Unavailable [phone] Mark Lugo MD Unavailable [phone] Kristina Fonseca Unavailable +[phone] Davdi Maguire MD Unavailable [phone] Reason for Visit * Auth/Cert (Routine) Specialty Diagnoses / Procedures Referred By Contac t Referred To Contact Diagnoses Primary osteoarthritis of right knee Primary osteoarthritis of right knee [M17.11] Procedures OR ARTHRP KNE CONDYLE&PLATU MEDIAL&LAT COMPARTMENTS Right Total Knee Arthroplasty- Robotic, Depuy- Attune, Velys, Cooling Unit-[facility], 1 Liter Beta Rinse, Pt to Go Home Referral ID Status Reason Start Date Expiration Date Visits Re quested Visits Authorized [id number] 1 1 Encounter Details Date Type Department Care Team (Latest Contact Info) Description 01/31/2025 7:11 AM CDT - 01/31/2025 4:08 PM CDT Hospital Encounter [facility] Operating Room [address] [place] [address] Mark Lugo MD [address] [place] [address] [address] [place] [address] Primary osteoarthritis of right knee (Primary Dx) [...] on file 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 * Spinal Anesthesia (Discharge Care) (Peruvian) * General Anesthesia (Discharge Care) (Peruvian) * How to Use an Incentive Spirometer (Discharge Care) (Peruvian) * How to Choose and Use a Walker (Lunch Wagon Operator) (Peruvian) * How to Use a Gait Belt (Lunch Wagon Operator) (Peruvian) * Ascorbic Acid (Vitamin C) (By mouth) (Peruvian) * Aspirin (By mouth) (Peruvian) * Celecoxib (By mouth) (Peruvian) * Iron Supplements (By mouth) (Peruvian) * Ondansetron (By mouth, Into the mouth) (Peruvian) * Oxycodone/Acetaminophen (By mouth) (Peruvian) * Laxative, Stimulant Combination (By mouth) (Peruvian) documented in this encounter Medications at Time [...] kidney disease) stage 3, GFR 30-59 ml/min ([facility]) 03/02/2020 Creatinine 1.31 new finding as of annual physical February 2020 Depression GERD (gastroesophageal reflux disease) Occult blood positive stool Pneumonia Pruritus 03/02/2014 Chronic pruritus Ventricular tachycardia ([facility]) loop recorder in 2019 and then removed 01/31/25 9571 General Chart Reviewed Yes Session Type Evaluation [...] Equipment-Currently Using None Prior Function Level of [place] Independent with ADLs;Independent functional transfers;Independent with ambulation;Independent with homemaking with ambulation Lives With Spouse Receives Help From Spouse/Significant other Driving Yes Mode of Transportation Car;Driven by self ADL Assistance Independent Instrumental ADL (IADL) Assistance Independent 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 Assessment/Plan Matthew was [...] pressfit, midvastus approach Surgeon: Mark Lugo MD Paper Sheeter: Rodney Cai PA-C, NP Anesthesia: spinal Tourniquet time: 0 minutes Estimated blood loss: approximately 150 cc Condition: stable to PACU Implanted components Implant Name Type Inv. Item Serial No. Farmworker Field Crop Lot No. [id number] No. Used Action [employer] Attune Cruciate Retain Cementless Knee Right 7 Component Femoral [id number] [employer] Attune Cruciate Retain Cementless Knee Right 7 Component [id number] [employer] [id number] Right 1 Implanted [employer] Attune Fb Tib Base Sz 7 Por [id number] - [id number] [employer] Attune Fb Tib Base Sz 7 Por [id number] [employer] [id number] Right 1 Implanted [employer] Insert Tibial Knee Fixed Rm Posterior Stabilized Attune 8mm Size 7 Polyethylene [id number] - [id number] [employer] Insert Tibial Knee Fixed Rm Posterior Stabilized Attune 8mm Size 7 Polyethylene [id number] [employer] [id number] Right 1 Implanted Technique: I met the patient in the preoperative holding room and signed the appropriate knee. Informed consent was obtained. A consent form was signed on the chart. The patient was transported to the operatingroom. [facility] was prepped and draped in [...] - TELEPHONE ONLY, NO PHYSICAL EXAM - [facility] Date: 01/24/25 [facility] RN completed assessment with the patient. Matthew Tian is a 74 y.o. male Right Total Knee Arthroplasty- Robotic, Depuy- Attune, Velys, Cooling Unit-[facility], 1 Liter BetaRinse, Pt to [...] kidney disease) stage 3, GFR 30-59 ml/min ([facility]) 03/02/2020 Creatinine 1.31 new finding as of annual physical February 2020 Depression GERD (gastroesophageal reflux disease) Occult blood positive stool Pneumonia Pruritus 03/02/2014 Chronic pruritus Ventricular tachycardia ([facility]) loop recorder in 2019 and then removed [...] a week Notes: Least expensive available on [facility] citalopram (CeleXA) 20 mg tablet -- 10/26/24 -- Zaina Terry MD TAKE 1 TABLET BY MOUTH DAILY traZODone (DESYREL) 50 mg tablet -- 01/23/25 -- Zaina Terry MD TAKE 1 TABLET (50 MG TOTAL) BY MOUTH NIGHTLY NEEDED FOR SLEEP Implants Type Not Specified [employer] [id number] [place] 56mm Sector Hip Shell Acetabular Gription Sterile Latex Free - [id number] - Implanted (Right) Hip Inventory item: [employer] [place] 56mm Sector Hip Shell Acetabular Gription Sterile Latex Free [id number] Model/Cat number: [id number] Farmworker Field Crop: [employer] Lot number: [id number] Size: 56mm OD As of 07/22/2021 Status: Implanted [employer] [id number] [place] 56mm 36mm Hip Neutral Liner Acetabular Altrx Sterile Latex Free - [id number] - Implanted (Right) Hip Inventory item: [employer] [place] 56mm 36mm Hip Neutral Liner Acetabular Altrx Sterile Latex Free [id number] Model/Cat number: [id number] Farmworker Field Crop: [employer] Trovali Lot number: [id number] Size: NEUTRAL 36MM ID/56MMOD As of 07/22/2021 Status: Implanted [employer] [id number] [place] 6.5mm 35mm Acetabular Cancellous Screw Bone Sterile - [id number] - Implanted (Right) Hip Inventory item: [employer] [place] 6.5mm 35mm Acetabular Cancellous Screw Bone [id number] Model/Cat number: [id number] Farmworker Field Crop: [employer] Inc Lot number: [id number] Size: 6.5MM X 35MM As of 07/22/2021 Status: Implanted [employer] [id number] Actis L107 Mm Collar Hip 6 High Offset Stem Femoral - [id number] -Implanted (Right) Hip Inventory item: [employer] Actis L107 Mm Collar Hip 6 High Offset Stem Femoral [id number] Model/Cat number: [id number] Farmworker Field Crop: [employer] Trovali Lot number: [id number] Size: 6 high collar As of 07/22/2021 Status: Implanted [employer] [id number] Articul/[place] 36mm Cementless Hip +5mm 12/14 Taper Head Femoral Latex Free - [id number] - Implanted (Right) Hip Inventory item: [employer] Articul/geneva 36mm Cementless Hip +5mm 09/29 Taper Head Femoral Latex Free [id number] Model/Cat number: [id number] Farmworker Field Crop: [facility] [employer] Inc Lot number: [id number] Size: +5.0/36mm karley, 09/29dia As of 07/22/2021 Status: Implanted [employer]/C R Bard Mesh Surgical Inguinal Hernia Synthetic Patch 3dmax 4x6in [id number] - [id number] - Implanted (Left) Abdomen Inventory item: [employer]/C R BARD Mesh Surgical Inguinal Hernia Synthetic Patch 3dmax 4x6in [id number] Model/Cat number: [id number] Farmworker Field Crop: [employer]/C R Bard Lot number: [id number] As of 11/30/2024 Status: Implanted [employer]/C R Bard Mesh Surgical Mid Anatomical Synthetic Patch 3dmax 4x6in [id number] - [id number] -Implanted (Right) Abdomen Inventory item: [employer]/C R BARD Mesh Surgical Mid Anatomical Synthetic Patch 3dmax 4x6in [id number]/Cat number: [id number] Farmworker Field Crop: [employer]/C R Bard Lot number: [id number] As of 11/30/2024 Status: Implanted TRAVEL/EXPOSURE Travel [...] you and your doctor have chosen [facility] for your surgery. We hope that the [...] Take as prescribed Use no make-up, nail hebrew, lotions, oils or powders on your skin. [...] down the [place] until you see the [employer], there will be elevators to the [...] Chon Castillo M.D. MF: CHAPO Report ID: [id number] Reading Location: [id number] Procedure Note Chon Castillo MD - 02/01/2025 [...] Chon Castillo M.D. MF: CHAPO Report ID: [id number] Reading Location: [id number] Vandana LEIVA IMG XR PROCEDURES Fin al Result * aPTT (01/31/2025 7:38 AM CDT) aPTT 34 28 - 38 sec [facility] Comment: Interpretive Data Heparin therapeutic range: 66.0 - 100.0 seconds. Range based on correlation with therapeutic heparin activity range of 0.3 - 0.7 Units/mL. Current interpretive data was last revised on 2023. Blood 01/31/2025 7:38 AM CDT 01/31/2025 7:45 AM CDT Mark Lugo MD LAB BLOOD ORDERABLES Fin al Result [facility] 1 [facility] Department [place] [address] * Protime-INR (01/31/2025 7:38 AM CDT) PT 10.8 9.7 - 13.0 sec [facility]) INR 1.00 0.90 - 1.20 [facility] ([place]) Comment: Interpretive data Oral anticoagulant therapeutic ranges: Venous thromboembolism prophylaxis or treatment: 2.0-3.0 CARDIOLOGY Standard range: 2.0-3.0 High-intensity range: 2.5-3.5 Refer to indication-specific guidelines for appropriate target ranges for prosthetic heart valve replacement. Current interpretive data was last revised on 2019. Blood 01/31/2025 7:38 AM CDT 01/31/2025 7:45 AM CDT us Mark Lugo MD LAB BLOOD ORDERABLES Fin al Result [facility] 1 [facility] Department [place] [address] documented in this encounter Visit Diagnoses Diagnosis [...] 01/31/2025 documented in this encounter Care Teams Karate Teacher Relationship Specialty Start Date End Date Zaina Terry MD PCP - General 06/15/16 Jonathan Wong MD Surgeon Orthopedic Surgery 08/26/17 Mark [place] OD [address] [place] [address] Ophthalmology 08/26/17 Dk Willis MD [address] [place] [address] Consulting Physician Cardiology 11/01/17 Everardo Huertas MD [address] [facility] [address] [place] [address] Consulting Physician Gastroenterology 04/11/18 Wayne Dougherty Jr., MD [address] [facility] [facility] [address] [place] [address] Consulting Physician Orthopedic Surgery 10/06/18 Kimberly Barone MD [address] [place] [address] [place] [address] Consulting Physician General Surgery 02/25/21 Turner Ramos MD [address] [facility] [address] [place] [address] Consulting Physician Gastroenterology 02/27/21 Mark Lugo MD [address] [facility] [place] [address] Surgeon Orthopedic Surgery 07/17/21 Kristina Fonseca PA [address] [facility] [place] [place] [address] Physician Paper Sheeter Orthopedic Surgery 07/22/21 David Maguire MD [address] [place] [address] Consulting Physician Otolaryngology 02/01/24 documented as of this encounter
--- OUTSIDE RECORDS SUMMARY | 2025-02-01 20:44 | XMS_ITS | Referral Summary ---
Author Organization [facility] [address] Address [address] [place] [address] Phone Care Team Providers Care Typewriter Aligner Name Role Phone Zaina Terry MD Primary Care Provider [phone] Jonathan Wong MD Unavailable [phone] Mark Nelson OD Unavailable [phone] Dk Willis MD Unavailable Everardo Huertas MD Unavailable [phone] Ladonna Figueroa MD, Wayne Maguire Unavailable [phone] Kevin Barone MD Unavailable Turner Ramos MD Unavailable [phone] Mark Lugo MD Unavailable Kristina Fonseca Unavailable [phone] David Maguire MD Unavailable [phone] Encounters Date Type Department Care Team Description 02/01/2025 Telephone [facility] Medical Group Orthopedics and Sports Medicine [address] [facility] [address] [place] [address] Chicho Musa NP 01/31/2025 8:30 AM CDT - 01/31/2025 10:55 AM CDT Surgery [facility] Operating Room 1 [place] [address] Mark Lugo MD Right Robotic Assisted Total Knee Arthroplasty 01/31/2025 8:36 AM CDT Anesthesia Event [facility] Operating Room 1 [place] [address] Josesito Rod DO McDowell, Juri Osmell, MD 01/31/2025 7:11 AM CDT - 01/31/2025 4:08 PM CDT Hospital Encounter [facility] Operating Room 1 [place] [address] Mark Lugo MD Primary osteoarthritis of right knee (Primary Dx) Discharge Disposition: Discharge to home or self care 01/18/2025 10:00 AM CDT Office Visit [facility] Medical [facility] 1 [facility] [address] [place] [address] Nilam Lewis NP Pre-op evaluation (Primary Dx); Abnormal EKG; Mood disorder 01/11/2025 Telephone [facility] Orthopedics and Sports Medicine [address] [place] [address] [address] [place] [address] Vandana Cai PA 01/11/2025 9:10 AM CDT Lab [address] [address] Pre-op testing 01/11/2025 9:06 AM CDT - 01/11/2025 11:59 PM CDT Hospital Encounter [facility] Imaging Center 1 [place] [address] Pre-op testing Discharge Disposition: Discharge to home or self care 01/11/2025 9:06 AM CDT - 01/11/2025 11:59 PM CDT Hospital Encounter [facility] Cardiology 1 [place] [address] Pre-op testing Discharge Disposition: Discharge to home or self care 01/10/2025 Telephone [facility] Orthopedics and Sports Medicine [address] [place] [address] [address] [place] [address] Mark Lugo MD 01/10/2025 Orders Only [facility]ics [facility] Sports Medicine [address] [place] [address] [address] [place] [address] Mark Lugo MD S/P total knee arthroplasty, right (Primary Dx) 01/10/2025 Telephone [facility]ics and Sports Medicine [address] [place] [address] [address] [place] [address] Mark Lugo MD Surgery Date 01/10/2025 9:45 AM CDT Office Visit [facility]ics [facility] Sports Medicine [address] [place] [address] [address] [place] [address] Mark Lugo MD Pre-op testing (Primary Dx); Primary osteoarthritis of right knee; Primary osteoarthritis of left knee 12/13/2024 8:40 AM ADMINISTRATIVE RECEPTIONIST Office Visit [address] [place] [address] Kayley Foster NP S/P bilateral inguinal hernia repair, follow-up exam (Primary Dx) 11/30/2024 8:00 AM ADMINISTRATIVE RECEPTIONIST - 11/30/2024 9:40 AM ADMINISTRATIVE RECEPTIONIST Surgery [facility] Operating Room 1 [place] [address] Kevin Barone MD BILATERAL INGUINAL HERNIA REPAIR WITH MESH - LAPAROSCOPIC ROBOTIC 11/30/2024 7:54 AM ADMINISTRATIVE RECEPTIONIST Anesthesia Event [facility] Operating Room 1 [place] [address] Urban Lopez MD McDowell, Juri Osmell, MD 11/30/2024 6:28 AM ADMINISTRATIVE RECEPTIONIST - 11/30/2024 11:06 AM ADMINISTRATIVE RECEPTIONIST Hospital Encounter [facility] Operating Room 1 [place] [address] Kevin Barone MD Left inguinal hernia (Primary Dx) Discharge Disposition: Discharge to home or self care 11/17/2024 Orders Only [facility] 1 [facility] [address] [place] [address] Zaina Terry MD Viral URI with cough (Primary Dx) 11/16/2024 Telephone [facility] 1 [facility] [address] [place] [address] Zaina Terry MD asking for cough medicine [...] PM CDT): Incidentally found on recent labs. Health Coordinator in November was 1.1 now 1.3. admits [...] 2 days ago show slight elevation in Health Coordinator. Stable CBC. No other abnormal findings. Given [...] problems (chest x-ray and EKG today, sees inspector integrated circuits next week, has loop recorder implanted, getting [...] loop recorder implantation. He does see his inspector integrated circuits Dr. Hunt next week so I have [...] contractions was 1%. 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 Sleep-disordered breathing 05/19/2018 Overview (02/29/2020): Eating 500 mg of caffeine daily as of February 2020, we will taper back to 100 and no further testing will be done BPH without urinary obstruction 04/14/2018 Iron deficiency anemia 04/06/2018 Overview (04/07/2018): Added automatically from request for surgery [id number] Assessment & Plan (12/30/2023 8:36 AM CDT): [...] 01/18/2025 Assessment & Plan (09/11/2024 10:54 AM ADMINISTRATIVE RECEPTIONIST): We have gone over a more conservative [...] (07/09/2021): Added automatically from request for surgery [id number] Paroxysmal atrial fibrillation 03/25/2021 01/18/2025 Restless leg [...] (09/17/2020): Added automatically from request for surgery [id number] Fecal occult blood test positive 09/17/2020 03/13/2021 Overview (09/17/2020): Added automatically from request for surgery [id number] Right ventricular dysfunction 09/10/2020 10/27/2022 Abnormal echocardiogram [...] information Assessment & Plan (09/03/2020 9:00 AM ADMINISTRATIVE RECEPTIONIST): Most likely secondary to GIB as he [...] (04/07/2018): Added automatically from request for surgery [id number] Lumbago 10/05/2017 02/29/2020 Left hip pain 10/05/2017 [...] on file Legal Sex Male 6:46 PM ADMINISTRATIVE RECEPTIONIST Gender Identity Not on file Sexual Orientation Straight 09/10/2020 8: 05 AM ADMINISTRATIVE RECEPTIONIST Occupation Industry Job Start Date Job End [...] on file Medical Devices Implanted Type Area Manager Adult Device Identifier Shelf Expiration Date Model / Serial / Lot Depuy [employer] [id number] [place] 56mm Sector Hip Shell Acetabular Gription Sterile Latex Free - [id number] Implanted:Qty: 1 on 07/22/2021 by Mark Lugo MD at [facility] Right: Hip [employer] 05/16/2031 [id number] / / [id number] [employer] [id number] [place] 56mm 36mm Hip Neutral Liner Acetabular Altrx Sterile Latex Free - [id number] Implanted:Qty: 1 on 07/22/2021 by Mark Lugo MD at [facility] Right: Hip [employer] 10/16/2025 [id number] / / [id number] [employer] [id number] [place] 6.5mm 35mm Acetabular Cancellous Screw Bone Sterile - [id number] Implanted:Qty: 1 on 07/22/2021 by Mark Lugo MD at [facility] Right: Hip [employer] 04/15/2031 [id number] / / [id number] Dep[employer] [id number] Actis L107 Mm Collar Hip 6 High Offset Stem Femoral - [id number] Implanted:Qty: 1 on 07/22/2021 by Mark Lugo MD at [facility] Right: Hip [employer] 05/16/2031 [id number] / / [id number] Dep[employer] [id number] Articul/Tyree 36mm Cementless Hip +5mm 12/14 Taper Head Femoral Latex Free - [id number] Implanted:Qty: 1 on 07/22/2021 by Mark Lugo MD at [facility] Right: Hip [employer] 02/13/2026 [id number] / / [id number] [employer]/C R Bard Mesh Surgical Inguinal Hernia Synthetic Patch 3dmax 4x6in [id number] - [id number] Implanted:Qty: 1 on 11/30/2024 by Kevin Barone MD at [facility] Left: Abdomen [employer]/C R Bard 06/13/2029 [id number] / / [id number] [employer]/C R Bard Mesh Surgical Mid Anatomical Synthetic Patch 3dmax 4x6in [id number] - [id number] Implanted:Qty: 1 on 11/30/2024 by Kevin Barone MD at [facility] Right: Abdomen [employer]/C R Bard 08/13/2029 [id number] / / [id number] Dep[employer] Insert Tibial Knee Fixed Rm Posterior Stabilized Attune 8mm Size 7 Polyethylene [id number] - [id number] Implanted:Qty: 1 on 01/31/2025 by Mark Lugo MD at [facility] Right: Knee [employer] [id number] 06/16/2031 [id number] / / [id number] [employer] Attune Cruciate Retain Cementless Knee Right 7 Component Femoral [id number] - [id number] Implanted:Qty: 1 on 01/31/2025 by Mark Lugo MD at [facility] Right: Knee [employer] [id number] 11/16/2034 [id number] / / [id number] Dep[employer] Attune Fb Tib Base Sz 7 Por [id number] - [id number] Implanted:Qty: 1 on 01/31/2025 by Mark Lugo MD at [facility] Right: Knee [employer] [id number] 02/13/2034 [id number] / / [id number] Procedures Procedure Name Priority Date/Time Associated Diagnosis [...] Routine 01/11/2025 9:12 AM CDT Pre-op testing VT AN ELECTIVE ENDOTRACHEAL AIRWAY Routine 11/30/2024 8:12 AM ADMINISTRATIVE RECEPTIONIST XI INGUINAL HERNIA REPAIR - LAPAROSCOPIC ROBOTIC 11/30/2024 7:54 AM ADMINISTRATIVE RECEPTIONIST Left inguinal hernia ECG 12-LEAD STAT 11/30/2024 7:12 AM ADMINISTRATIVE RECEPTIONIST EGFR STAT 11/30/2024 6:57 AM ADMINISTRATIVE RECEPTIONIST DIFFERENTIAL AUTO STAT 11/30/2024 6:5 7 AM ADMINISTRATIVE RECEPTIONIST ANTIBODY SCREEN STAT 11/30/2024 6:57 AM ADMINISTRATIVE RECEPTIONIST ABO/RH STAT 11/30/2024 6:57 AM ADMINISTRATIVE RECEPTIONIST TYPE AND SCREEN STAT 11/30/2024 6:57 AM ADMINISTRATIVE RECEPTIONIST CBC WITH AUTO DIFFERENTIAL STAT 11/30/2024 6:57 AM ADMINISTRATIVE RECEPTIONIST BASIC METABOLIC PANEL STAT 11/30/2024 6:57 AM ADMINISTRATIVE RECEPTIONIST PSA SCREEN Routine 08/28/2024 8:08 AM ADMINISTRATIVE RECEPTIONIST Prostate cancer screening COLONOSCOPY 10/27/2020 9:03 AM ADMINISTRATIVE RECEPTIONIST HEPATITIS C ANTIBODY Routine 08/26/2017 4:42 PM ADMINISTRATIVE RECEPTIONIST Encounter for hepatitis C screening test for [...] Chon Castillo M.D. MF: CHAPO Report ID: [id number] Reading Location: [id number] Procedure Note Chon Castillo MD - 02/01/2025 [...] Chon Castillo M.D. MF: CHAPO Report ID: [id number] Reading Location: [place] [address] Vandana LEIVA IMG XR PROCEDURES Fin al Result * Spinal Block (01/31/2025 8:52 AM CDT) Narrative Liu Eubanks CRNA - 01/31/2025 8:52 AM CDT Liu Eubanks CRNA 01/31/2025 8:52 AM Spinal Block Patient location: OR Reason for block: primary anesthetic Staff: Placed by: HEAD OF HOUSEKEEPING:Liu Eubanks CRNA Procedure prep: Preprocedure checklist: patient [...] 34 28 - 38 sec [facility] ([place]) Comment: Interpretive Data Heparin therapeutic range: 66.0 - 100.0 seconds. Range based on correlation with therapeutic heparin activity range of 0.3 - 0.7 Units/mL. Current interpretive data was last revised on 2023. Blood 01/31/2025 7:38 AM CDT 01/31/2025 7:45 AM CDT Mark Lugo MD LAB BLOOD ORDERABLES Fin al Result Performing Organization Address City/[facility] Co de Phone Number [facility] [place]) [address] [facility] [place] [address] * Protime-INR (01/31/2025 7:38 AM CDT) PT 10.8 9.7 - 13.0 sec [facility] ([place]) INR 1.00 0.90 - 1.20 [facility]ENN[facility] ([place]) Comment: Interpretive data Oral anticoagulant therapeutic ranges: Venous thromboembolism prophylaxis or treatment: 2.0-3.0 CARDIOLOGY Standard range: 2.0-3.0 High-intensity range: 2.5-3.5 Refer to indication-specific guidelines for appropriate target ranges for prosthetic heart valve replacement. Current interpretive data was last revised on 2019. Blood 01/31/2025 7:38 AM CDT 01/31/2025 7:45 AM CDT us Mark Lugo MD LAB BLOOD ORDERABLES Fin al Result Performing Organization Address City/[facility] Co de Phone Number [facility] [place]) [address] [facility] [place] [address] * ECG 12 lead (01/11/2025 10:04 AM CDT) 01/11/2025 9:44 AM CDT Narrative [facility] - 01/11/2025 10:07 AM CDT Vent Rate: 68 bpm RR Interval: 879 msec VT Interval: 214 msec QRS Duration: 83 msec QT Interval: 410 msec QTC Interval: 427 msec P-R-T Morrison: 60 - -66 - 41 degrees IMPRESSION: [...] Lugo MD ECG ORDERABLES Final Re sult [facility] * XR Chest PA Lateral 2 View [...] Paulette Rausch D.O. PS: PS Report ID: [id number] Reading Location: [id number] Procedure Note Paulette Rausch DO - 01/16/2025 [...] Paulette Rausch D.O. PS: PS Report ID: [id number] Reading Location: [place] [address] us Mark Lugo MD IMG XR PROCEDURES [...] Fin al Result [facility] ([place]) 1 [facility] [place] [address] * Differential, auto (01/11/2025 9:12 AM CDT) [...] Neutrophil pct 50.3 % [facility] ([place]) Comment: Interpretive Data Percent cell count reference [...] Fin al Result [facility] ([place]) 1 [facility] [place] [address] * Urinalysis reflex to microscopic and culture [...] tendency for uric acid stone formation. Source: [facility] Current Interpretive Data was [...] ORDERABLES Final Result [facility] ([place]) [address] [facility] [place] [address] * CBC with auto differential (01/11/2025 9:12 AM CDT) WBC 4.3 3.8 - 9.9 K/cumm Hgb 15.1 13.0 - 17.5 g/dL [facility] ([place]) Hct 44.7 38.9 - 50.3 % [facility] ([place]) Plt 234 150 - 400 K/cumm [facility] ([place]) MPV 9.1 9.1 - 12.3 fL [facility] RBC 4.83 4.30 - 5.80 M/cumm [facility] ([place]) MCV 92.5 81.3 - 96.4 fL [facility] ([place]) MCH 31.3 27.1 - 33.3 pg [facility] ([place]) MCHC 33.8 32.3 - 35.7 g/dL [facility] RDW CV 13.6 11.1 - 14.9 % [facility] RDW SD 46.6 35.7 - 48.1 fL [facility] NRBC abs 0.00 0.00 - 0.01 K/cumm [facility] ([place] Blood 01/11/2025 9:12 AM CDT 01/11/2025 9:30 AM CDT Mark Lugo MD LAB BLOOD ORDERABLES Fin al Result [facility] ([place]) 1 [facility] [place] [address] * Hemoglobin A1c (01/11/2025 9:12 AM CDT) Hgb A1C 5.4 4.0 - 5.6 % Estimated Average Glucose 108 mg/dL [facility] ([place]) Comment: The ADA recommends reporting an estimated Average Glucose (eAG) with all Hemoglobin A1c results using the equation derived from a study of 507 normal and diabetic adults. Minority populations were underrepresented and children were not included. (Diabetes Care 31:7402-4317, 2008). The eAG is not equivalent to a fasting glucose. Blood 01/11/2025 9:12 AM CDT 01/11/2025 9:30 AM CDT us Mark Lugo MD LAB BLOOD ORDERABLES [facility] al Result [facility] ([place]) 1 [facility] [place] [address] * (ABNORMAL) Comprehensive metabolic panel (01/11/2025 9:12 [...] Fin al Result [facility] ([place]) 1 [facility] [place] [address] * VT AN ELECTIVE ENDOTRACHEAL AIRWAY (11/30/2024 8:12 AM ADMINISTRATIVE RECEPTIONIST) Narrative Vito Damico CRNA - 11/30/2024 8:12 AM ADMINISTRATIVE RECEPTIONIST Vito Damico CRNA 11/30/2024 8:12 AM Airway Patient location: pre-op Urgency: elective Indications for airway management: anesthesia Difficult airway: no Staff: Placed by: HEAD OF HOUSEKEEPING: Vito Damico CRNA Emergent airway documentation: Risks [...] * ECG 12 lead (11/30/2024 7:12 AM ADMINISTRATIVE RECEPTIONIST) 11/30/2024 7:12 AM ADMINISTRATIVE RECEPTIONIST Narrative [facility] - 11/30/2024 10:09 AM ADMINISTRATIVE RECEPTIONIST Vent Rate: 58 bpm RR Interval: 1032 msec VT Interval: 192 msec QRS Duration: 86 msec QT Interval: 432 msec QTC Interval: 428 msec P-R-T Morrison: 2 - -48 - 9 degrees IMPRESSION: [...] Kevin Barone MD ECG ORDERABLES Final Result [facility] * eGFR (11/30/2024 6:57 AM ADMINISTRATIVE RECEPTIONIST) eGFR 83 >=60 mL/min/1. 73 m2 Comment: [...] last reviewed 2021. Blood 11/30/2024 6:57 AM ADMINISTRATIVE RECEPTIONIST 11/30/2024 7:02 AM ADMINISTRATIVE RECEPTIONIST us Kevin Barone MD LAB BLOOD ORDERA BLES Final Result [facility] ([place]) 1 [facility] [place] [address] * Differential, auto (11/30/2024 6:57 AM ADMINISTRATIVE RECEPTIONIST) Neutrophil abs 1.9 1.5 - 6.5 K/cumm [...] revised on 2018. Blood 11/30/2024 6:57 AM ADMINISTRATIVE RECEPTIONIST 11/30/2024 7:02 AM ADMINISTRATIVE RECEPTIONIST Kevin Barone MD LAB BLOOD ORDERA BLES Final Result Performing Organization Address City/State/[facility] Co de Phone Number [facility] ([place]) 1 [facility] [place] [address] * (ABNORMAL) CBC with auto differential (11/30/2024 6:57 AM ADMINISTRATIVE RECEPTIONIST) WBC 3.9 3.8 - 9.9 K/cumm Hgb [...] [facility] ([place]) Blood 11/30/2024 6:57 AM ADMINISTRATIVE RECEPTIONIST 11/30/2024 7:02 AM ADMINISTRATIVE RECEPTIONIST Kevin Barone MD LAB BLOOD ORDERA BLES Final Result Performing Organization Address City/State/[facility] Co de Phone Number [facility] ([place]) 1 [facility] [place] [address] * ABO/Rh (11/30/2024 6:57 AM ADMINISTRATIVE RECEPTIONIST) Pathologist [facility] ABO/Rh O Positive Blood 11/30/2024 6:57 AM ADMINISTRATIVE RECEPTIONIST 11/30/2024 7:02 AM ADMINISTRATIVE RECEPTIONIST Narrative [facility] ([place]) - 11/30/2024 7:37 AM ADMINISTRATIVE RECEPTIONIST Has the patient had Daratumumab or Isatuximab in the past 6 months?->Unknown Kevin Barone MD LAB BLOOD BANK T EST ORDERABLES Final Result Performing Organization Address [facility] Co de Phone Number [facility] ([place]) 1 [place] [address] * Antibody screen (11/30/2024 6:57 AM ADMINISTRATIVE RECEPTIONIST) Pathologist [facility] Buddy, indirect, Gel Interpretation Negative ABSC Blood 11/30/2024 6:57 AM ADMINISTRATIVE RECEPTIONIST 11/30/2024 7:02 AM ADMINISTRATIVE RECEPTIONIST Narrative [facility] ([place]) - 11/30/2024 7:37 AM ADMINISTRATIVE RECEPTIONIST Has the patient had Daratumumab or Isatuximab in the past 6 months?->Unknown Kevin Barone MD LAB BLOOD BANK T EST ORDERABLES Final Result Performing Organization Address City/[facility] Co de Phone Number [facility] ([place]) 1 [place] [address] * Basic metabolic panel (11/30/2024 6:57 AM ADMINISTRATIVE RECEPTIONIST) [facility] Sodium 138 135 - 145 mmol/L Potassium, pl 4.2 3.3 - 4.9 mmol/L [facility] ([place]) Chloride 104 97 - 110 mmol/L [facility] ([place]) CO2 23 22 - 32 mmol/L [facility] ([place]) Anion gap 11 2 - 15 mmol/L [facility] ([place]) BUN 25 6 - 25 mg/dL [facility] ([place]) Creatinine 0.96 0.80 - 1.30 mg/dL [facility] ([place]) Glucose 112 70 - 199 mg/dL [facility] ([place]) Comment: Interpretive Data Fasting glucose >/= [...] 2022. Calcium 9.2 8.5 - 10.3 mg/dL [facility] ([place]) Blood 11/30/2024 6:57 AM ADMINISTRATIVE RECEPTIONIST 11/30/2024 7:02 AM ADMINISTRATIVE RECEPTIONIST Kevin Barone MD LAB BLOOD ORDERA BLES Final Result [facility] ([place]) 1 [facility] Department of Laboratories [place], [place] [id number] * PSA screen (08/28/2024 8:08 AM ADMINISTRATIVE RECEPTIONIST) PSA-Total 1.47 <=6.20 ng/mL Comment: Interpretive Data [...] last revised 22. Testing performed by: [facility], [address] [place] [address], [place]., [address] Blood 08/28/2024 8:08 AM ADMINISTRATIVE RECEPTIONIST 08/28/2024 12:44 PM ADMINISTRATIVE RECEPTIONIST us Zaina Terry MD LAB BLOOD ORDERABLES Final Result Performing Organization Address City/State/ZIP Co wy Phone Number [facility] [address] [facility] Department [place] [address] * COLONOSCOPY (10/27/2020 9:03 AM ADMINISTRATIVE RECEPTIONIST) Anatomical Region Laterality Modality Other Narrative Procedure Note Everardo Huertas MD - 10/27/2020 9:03 AM CST [facility]estive [facility] Patient Name: Matthew Peralta Procedure Date: 10/27/2020 9:03 AM Date of : 1950 Admit Type: Outpatient Age: 70 Gender: Male Attending MD: Everardo Huertas M.D. Room: [facility] ENDOSCOPY ROOM 2 Note Status: Finalized Patient [...] The scopewas passed under direct vision. The [id number] was introduced through the anus andadvanced to [...] 9:03 AM Procedure Code(s): --- Professional --- 99212, Colonoscopy, flexible; diagnostic, including collection of specimen(s) by brushing or washing, when performed (separateprocedure) Diagnosis Code(s): --- Professional --- R19.5, Other fecal abnormalities K64.9, Unspecified hemorrhoids CPT copyright 2017 [employer]. All rights reserved. The codes documented in this report are preliminary and upon certified procedural coder reviewmay be revised to meet current compliance requirements. Recognized by the [employer] for promoting quality in endoscopy us Everardo Huertas MD ENDOSCOPY PROCEDURES Final Re sult * Hepatitis C antibody (08/26/2017 4:42 PM ADMINISTRATIVE RECEPTIONIST) Hep C Ab NON-REACTI VE NON-REACTI VE [facility] [place] SIGNAL TO CUT-OFF 0.09 <1.00 [facility] [place] Blood specimen (specimen) 08/26/2017 4:42 PM ADMINISTRATIVE RECEPTIONIST 08/26/2017 4:42 PM ADMINISTRATIVE RECEPTIONIST Narrative Resulting Agency Comment Performing Organization Information: Site ID: [id number] Name: Terry Bautista Address: [address] [address] Director: Ritesh Holliday D.O., MPH us Zaina Terry MD LAB MICROBIOLOGY - GENERAL ORDERABLES Final Result [facility] [place] from Last 3 Months or Most Recently Relevant to Health Maintenance Insurance [facility]ANS [facility] MEDICARE [employer] [place] MEDICARE MEDICARE [employer] [place] MEDICARE PHYSIC[employer]ANS [place] [employer] [place] Advance Directives For more information, please contact: [phone] Documents on File Type Date Recorded Patient Oracle Analyst Expl anation ADVANCE DIRECTIVE 02/29/2020 DNR ADVANCE [...] 1:55 PM 02/22/2021 1:55 PM Care Teams Typewriter Aligner Relationship Specialty Start Date End Date Zaina Terry MD PCP - General 06/15/16 Jonathan Wong MD Surgeon Orthopedic Surgery 08/26/17 Mark Nelson [address] [place] [address] Ophthalmology 08/26/17 Dk Willis MD [address] [place] [address] Consulting Physician Cardiology 11/01/17 Everardo Huertas MD [address] [place] [address] [place] [address] Consulting Physician Gastroenterology 04/11/18 Wayne Dougherty Jr., MD [address] [place] [address] [place] [address] Consulting Physician Orthopedic Surgery 10/06/18 Kevin Barone MD [address] [place] [address] [place] [address] Consulting Physician General Surgery 02/25/21 Turner Ramos MD [address] [facility] [place] [address] Consulting Physician Gastroenterology 02/27/21 Mark Lugo MD [address] [facility] [place] [address] Surgeon Orthopedic Surgery 07/17/21 Kristina Fonseca PA [address] [facility] [place] [address] Physician Evidence Technician Orthopedic Surgery 07/22/21 David Maguire MD [facility] [place] [address] Consulting Physician Otolaryngology 02/01/24
--- OUTSIDE RECORDS SUMMARY | 2025-02-01 20:44 | XMS_ITS | Encounter Summary ---
Author Organization [email or web address] ts Address [address] [place] [address] Phone Care Team Providers Care Carpenter Helper Name Role Phone Zaina [place] MD Primary Care Provider + [phone] Jonathan Wong MD Unavailable +[phone] Matthew Cole Unavailable Unavail able Wes Oreilly MD Unavailable + Mark Nelson OD Unavailable +[phone] Shelley Figueroa MD, Duy Dunaway Unavailable +[phone] Dk Willis MD Unavailable +[phone] Everardo Huertas MD Unavailable +[phone] Ladonna Figueroa MD, Wanye Maguire Unavailable +- [phone] Kevin Barone MD Unavailable Turner Ramos MD Unavailable +[phone] Mark Lugo MD Unavailable +[phone] Kristina Fonseca Unavailable +[phone] David Maguire MD Unavailable +[phone] Encounter Details Date Type Department Care Team (Late st Contact Info) Description 09/02/2017 Orders Only [facility] [address] [place] [address] Zaina [place] MD [address] [place] [address] Social History Tobacco Use Types Packs/Day Years Used Date Smoking Tobacco: Never Smokeless Tobacco: Never Alcohol Use Standard Drinks/Week Comments No 0 (1 standard drink = 0.6 oz pur e alcohol) Sex and Gender Information Value Date Recorded Sex Assigned at Not on file Legal Sex Male 6:46 PM GIFTS OFFICER Gender Identity Not on file Sexual Orientation Straight 09/10/2020 8: 05 AM GIFTS OFFICER 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 on file Not on fi le documented as of this encounter Plan of Treatment Not on file documented as of this encounter Procedures Procedure Name Priority Date/Time Associated Diagnosis Comments SCAN - RADIOLOGY/IMAGING 09/02/2017 11:04 AM GIFTS OFFICER documented in this encounter Results * SCAN - RADIOLOGY/IMAGING (09/02/2017 11:04 AM GIFTS OFFICER) Anatomical Region Laterality Modality Other Zaina Terry MD Final Resu lt documented in this encounter Visit Diagnoses Not on filedocumented in this encounter Additional Health Concerns Infection Onset Date Last Indicated Resolved Time COVID: Suspected 09/05/2020 09/05/2020 09/06/2020 12:29 AM GIFTS OFFICER Respiratory Infection (SUMAYA), contact + droplet Comment:Automatically added due to negative COVID-19 result. 09/06/2020 09/06/2020 09/20/2020 3:0 6 AM GIFTS OFFICER COVID: Suspected 10/14/2024 10/14/2024 10/14/2024 3:28 PM GIFTS OFFICER Influenza, adult 10/14/2024 10/14/2024 10/21/2024 3:05 AM GIFTS OFFICER documented as of this encounter Care Teams Carpenter Helper Relationship Specialty Start Date End Date Zaina Terry MD PCP - General 06/15/16 Jonathan Wong MD Surgeon Orthopedic Surgery 08/26/17 Matthew Cole Gastroenterology 08/26/17 09/12/20 Wes Oreilly MD [address] [place] [address] Consulting Physician Gastroenterology 08/26/17 0 Mark Nelson OD [address] [place] [address] Ophthalmology 08/26/17 Duy Rosa Jr., MD [address] [place] [address] Consulting Physician Cardiovascular Disease 08/28/17 1 11/12/19 Dk Willis MD [address] [place] [address] Consulting Physician Cardiology 11/01/17 Everardo Huertas MD [address] [place] [address] [address] [place] [address] Consulting Physician Gastroenterology 04/11/18 Wayne Dougherty Jr., MD [address] [place] [address] [address] [place] [address] Consulting Physician Orthopedic Surgery 10/06/18 Kevin Barone MD [address] [place] [address] [address] [place] [address] Consulting Physician General Surgery 02/25/21 Turner Ramos MD [address] [facility] [place] [address] Consulting Physician Gastroenterology 02/27/21 Mark Lugo MD [address] [facility] [place] [address] Surgeon Orthopedic Surgery 07/17/21 Kristina Fonseca PA [address] [facility] [place] [address] Physician [employer] Counter Person Orthopedic Surgery 07/22/21 David Maguire MD [address] [place] [address] Consulting Physician Otolaryngology 02/01/24 documented as of this encounter
--- OUTSIDE RECORDS SUMMARY | 2025-02-01 20:44 | XMS_ITS | Clinical Summary ---
Author Organization [facility] Address [address] [place] [address] Care Team Providers Care Product Scientist Name Role Phone Unavailable Primary Care Provider [...]
--- OUTSIDE RECORDS SUMMARY | 2025-02-01 20:44 | XMS_ITS | Encounter Summary ---
Author Organization [employer] ts Address [address] [place] [address] Phone Care Team Providers Care Intertype Operator Name Role Phone Zaina [place] MD Primary Care Provider + [phone] Jonathan Wong MD Unavailable +[phone] Matthew Cole Unavailable Unavail able Wes Oreilly MD Unavailable + Mark Nelson OD Unavailable +[phone] Shelley Figueroa MD, Duy Dunaway Unavailable +[phone] Dk Willis MD Unavailable +[phone] Everardo Huertas MD Unavailable +[phone] Ladonna Figueroa MD, Wayne Maguire Unavailable +- [phone] Kevin Barone MD Unavailable Turner Ramos MD Unavailable +[phone] Mark Lugo MD Unavailable [phone] Kristina Fonseca Unavailable +[phone] David Maguire MD Unavailable +[phone] Encounter Details Date Type Department Care Team (Late st Contact Info) Description 09/05/2017 Orders Only [facility] [address] [place] [address] Zaina [place] MD [address] [place] [address] Social History Tobacco Use Types Packs/Day Years Used Date Smoking Tobacco: Never Smokeless Tobacco: Never Alcohol Use Standard Drinks/Week Comments No 0 (1 standard drink = 0.6 oz pur e alcohol) Sex and Gender Information Value Date Recorded Sex Assigned at Not on file Legal Sex Male 6:46 PM PEDIATRIC INTENSIVE PHYSICIAN Gender Identity Not on file Sexual Orientation Straight 09/10/2020 8: 05 AM PEDIATRIC INTENSIVE PHYSICIAN 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 on file Not on fi le documented as of this encounter Plan of Treatment Not on file documented as of this encounter Procedures Procedure Name Priority Date/Time Associated Diagnosis Comments SCAN - RADIOLOGY/IMAGING 09/05/2017 3:06 PM PEDIATRIC INTENSIVE PHYSICIAN documented in this encounter Results * SCAN - RADIOLOGY/IMAGING (09/05/2017 3:06 PM PEDIATRIC INTENSIVE PHYSICIAN) Anatomical Region Laterality Modality Other Zaina Terry MD Final Resu lt documented in this encounter Visit Diagnoses Not on filedocumented in this encounter Additional Health Concerns Infection Onset Date Last Indicated Resolved Time COVID: Suspected 09/05/2020 09/05/2020 09/06/2020 12:29 AM PEDIATRIC INTENSIVE PHYSICIAN Respiratory Infection (SUMAYA), contact + droplet Comment:Automatically added due to negative COVID-19 result. 09/06/2020 09/06/2020 09/20/2020 3:0 6 AM PEDIATRIC INTENSIVE PHYSICIAN COVID: Suspected 10/14/2024 10/14/2024 10/14/2024 3:28 PM PEDIATRIC INTENSIVE PHYSICIAN Influenza, adult 10/14/2024 10/14/2024 10/21/2024 3:05 AM PEDIATRIC INTENSIVE PHYSICIAN documented as of this encounter Care Teams Intertype Operator Relationship Specialty Start Date End Date Zaina Terry MD PCP - General 06/15/16 Jonathan Wong MD Surgeon Orthopedic Surgery 08/26/17 Matthew Cole Gastroenterology 08/26/17 09/12/20 Wes Oreilly MD [address] [place] [address] Consulting Physician Gastroenterology 08/26/17 0 Mark Nelson OD [address] [place] [address] Ophthalmology 08/26/17 Duy Rosa Jr., MD [address] [place] [address] Consulting Physician Cardiovascular Disease 08/28/17 1 11/12/19 Dk [place] MD [address] [place] [address] Consulting Physician Cardiology 11/01/17 Everardo Huertas MD [address] [place] [address] [address] [place] [address] Consulting Physician Gastroenterology 04/11/18 Wayne Dougherty Jr., MD [address] [place] [address] [address] [address] Consulting Physician Orthopedic Surgery 10/06/18 Kevin Barone MD [address] [place] [address] [address] [place] [address] Consulting Physician General Surgery 02/25/21 Turner Ramos MD [address] [facility] [place] [address] Consulting Physician Gastroenterology 02/27/21 Mark Lugo MD [address] [facility] [place] [address] Surgeon Orthopedic Surgery 07/17/21 Kristina Fonseca PA [address] [facility] [place] [address] Physician Rn Shift Mgr Orthopedic Surgery 07/22/21 David Maguire MD [address] [place] [address] Consulting Physician Otolaryngology 02/01/24 documented as of this encounter
--- OUTSIDE RECORDS SUMMARY | 2025-02-01 20:44 | XMS_ITS | Encounter Summary ---
Author Organization [facility] Healthcare Address [address] [place] [address] Care Team Providers Care Cloth Folder Hand Name Role Phone Zaina Terry MD Primary Care Provider + [phone] Jonathan Wong MD Unavailable +[phone] Mark Nelson OD Unavailable +[phone] Dk Willis MD Unavailable +[phone] Everardo Huertas MD Unavailable +[phone] Ladonna Figueroa MD, Wayne Maguire Unavailable +- [phone] Kimberly Barone MD Unavailable Turner Ramos MD Unavailable +[phone] Mark Lugo MD Unavailable +[phone] Kristina Fonseca Unavailable +[phone] David Maguire MD Unavailable +[phone] Reason for Visit * Auth/Cert (Routine) Specialty Diagnoses / Procedures Referred By Contac t Referred To Contact Diagnoses Primary osteoarthritis of right knee Primary osteoarthritis of right knee [M17.11] Procedures [facility] ARTHRP KNE CONDYLE&PLATU MEDIAL&LAT COMPARTMENTS Right Total Knee Arthroplasty- Robotic, Depuy- Attune, Velys, Cooling Unit-[facility], 1 Liter Beta Rinse, Pt to Go Home Referral ID Status Reason Start Date Expiration Date Visits Re quested Visits Authorized [id number] 1 1 Encounter Details Date Type Department Care Team (Late st Contact Info) Description 01/31/2025 8:36 AM CDT Anesthesia Event [facility] Operating Room 1 [place] [address] Marcel Josesito Chon, DO [address] [facility] [address] [place] [address] [place] [address] [facility] [address] [place] [address] Anesthesia Record Procedure Summary Procedure Name Responsible [...] on file Legal Sex Male 6:46 PM SOLAR PHOTOVOLTAIC CREW LEAD Gender Identity Not on file Sexual Orientation Straight 09/10/2020 8: 05 AM SOLAR PHOTOVOLTAIC CREW LEAD Occupation Industry Job Start Date Job End [...] Procedure Summary Date: 01/31/25 Room / Location: [facility] OR [address] [place] [address] OPERATING ROOM Anesthesia Start: 835 Anesthesia Stop: [...] consciousness: lethargic, follows simple commands and 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 Postoperative Plan: Postoperative administration opioids intended. No postoperative mechanical ventilation intended. Patient's planned disposition post procedure is Outpatient. Informed Consent: Discussed plan with attending and STUDIO GRIP. Anesthesia plan and risks discussed with patient. [...] for block: primary anesthetic Staff: Placed by: STUDIO GRIP:Liu Eubanks CRNA Procedure prep: Preprocedure checklist: patient [...] mg documented in this encounter Care Teams Cloth Folder Hand Relationship Specialty Start Date End Date Zaina Terry MD PCP - General 06/15/16 Jonathan Wong MD Surgeon Orthopedic Surgery 08/26/17 Mark Nelson OD [address] [place] [address] Ophthalmology 08/26/17 Dk [place] MD [address] [place] [address] Consulting Physician Cardiology 11/01/17 Everardo Huertas MD [address] [facility] [place] [address] Consulting Physician Gastroenterology 04/11/18 Wayne Dougherty Jr., MD [address] [facility] [address] [place] [address] Consulting Physician Orthopedic Surgery 10/06/18 Kimberly Barone MD [address] [facility] [address] [place] [address] Consulting Physician General Surgery 02/25/21 Turner Ramos MD [address] [facility] [address] [address] Consulting Physician Gastroenterology 02/27/21 Mark Lugo MD [address] [facility] [place] [address] Surgeon Orthopedic Surgery 07/17/21 Kristina Fonseca PA [address] [facility] [address] [place] [address] Physician Credit Collection Specialist Orthopedic Surgery 07/22/21 David Maguire MD [address] [place] [address] Consulting Physician Otolaryngology 02/01/24 documented as of this encounter
--- OUTSIDE RECORDS SUMMARY | 2025-02-01 20:44 | XMS_ITS | Encounter Summary ---
Author Organization [facility] Healthcare Address [address] [place] [address] Care Team Providers Care Clinical Auditor Name Role Phone Zaina Terry MD Primary Care Provider + [phone] Jonathan Wong MD Unavailable [phone] Mark Nelson OD Unavailable [phone] Dk Willis MD Unavailable +[phone] Everardo Huertas MD Unavailable [phone] Ladonna Figueroa MD, Wayne Maguire Unavailable +- [phone] Kimberly Barone MD Unavailable Turner Ramos MD Unavailable [phone] Mark Lugo MD Unavailable [phone] Kristina Fonseca Unavailable +[phone] David Maguire MD Unavailable [phone] Reason for Visit * Auth/Cert (Routine) Specialty [...] Expiration Date Visits Re quested Visits Authorized [id number] 1 1 Encounter Details Date Type Department Care Team (Late st Contact Info) Description 01/31/2025 8:30 AM CDT - 01/31/2025 10:55 AM CDT Surgery [facility] Operating Room [address] [place] [address] Mark Lugo MD [address] [place] [address] [address] [place] [address] Right Robotic Assisted Total Knee Arthroplasty Social [...] on file Legal Sex Male 6:46 PM PHOTOGRAPHIC INTELLIGENCE OFFICER Gender Identity Not on file Sexual Orientation Straight 09/10/2020 8: 05 AM PHOTOGRAPHIC INTELLIGENCE OFFICER Occupation Industry Job Start Date Job [...] Care Everywhere. * Spinal Anesthesia (Discharge Care) (Bangladeshi) * General Anesthesia (Discharge Care) (Bangladeshi) * How to Use an Incentive Spirometer (Discharge Care) (Bangladeshi) * How to Choose and Use a Walker (Geosciences Associate Professor) (Bangladeshi) * How to Use a Gait Belt (Geosciences Associate Professor) (Bangladeshi) * Ascorbic Acid (Vitamin C) (By mouth) (Bangladeshi) * Aspirin (By mouth) (Bangladeshi) * Celecoxib (By mouth) (Bangladeshi) * Iron Supplements (By mouth) (Bangladeshi) * Ondansetron (By mouth, Into the mouth) (Bangladeshi) * Oxycodone/Acetaminophen (By mouth) (Bangladeshi) * Laxative, Stimulant Combination (By mouth) (Bangladeshi) documented in this encounter Medications at Time [...] disease) stage 3, GFR 30-59 ml/min ([facility]) 03/02/2020 Creatinine 1.31 new finding as of annual physical February 2020 Depression GERD (gastroesophageal reflux disease) Occult blood positive stool Pneumonia Pruritus 03/02/2014 Chronic pruritus Ventricular tachycardia ([facility]) loop recorder in 2019 and [...] Equipment-Currently Using None Prior Function Level of [place] Independent with ADLs;Independent functional transfers;Independent with ambulation;Independent with homemaking with ambulation Lives With Spouse Receives Help From Spouse/Significant other Driving Yes Mode of Transportation Car;Driven by self ADL Assistance Independent Instrumental ADL (IADL) Assistance Independent 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 Fall [...] 01/31/2025 3:15 PM CDT Physical Therapy 01/31/25 2004 General Chart Reviewed Yes Session Type Evaluation Safe Environment Patient found in supine;Arm band checked Physical Therapy-Patient Goal return home Precautions Precautions Fall risk Home Living Type of Home House Home Layout One level Home Access Stairs to enter with rails Entrance Stairs-Number of Steps 2 Home Mobility Equipment-Available Wheeled walker Prior Function Level of [place] Independent with ADLs;Independent functional transfers;Independent with ambulation [...] Knee Arthroplasty- Robotic, Depuy- Attune, Velys, Cooling Unit-[facility], 1 Liter BetaRinse, Pt to Go [...] Severe advanced right knee tricompartmental osteoarthritis with pkix-cr-izbe contact, osteophyte formation, subluxation. Assessment/Plan Matthew was [...] pressfit, midvastus approach Surgeon: Mark Lugo MD Coastal Tug Mate: Rodney Cai PA-C, NP Anesthesia: spinal Tourniquet time: 0 minutes Estimated blood loss: approximately 150 cc Condition: stable to PACU Implanted components Implant Name Type Inv. Item Serial No. Technical Administrative Assistant Lot No. LRB No. Used Action [employer] Attune Cruciate Retain Cementless Knee Right 7 Component Femoral [id number] [employer] Attune Cruciate Retain Cementless Knee Right 7 Component [id number] [employer] [id number] Right 1 Implanted [employer] Attune Fb Tib Base Sz 7 Por [id number] - [id number] [employer] Attune Fb Tib Base Sz 7 Por [id number] [employer] [id number] Right 1 Implanted [employer] Insert Tibial Knee Fixed Rm Posterior Stabilized Attune 8mm Size 7 Polyethylene [id number] - [id number] [employer] Insert Tibial Knee Fixed Rm Posterior Stabilized Attune 8mm Size 7 Polyethylene [id number] [employer] [id number] Right 1 Implanted [...] - TELEPHONE ONLY, NO PHYSICAL EXAM - [facility] Date: 01/24/25 PAT RN completed assessment with the patient. Matthew Tian is a 74 y.o. male Right Total Knee Arthroplasty- Robotic, Depuy- Attune, Velys, Cooling Unit-[facility], 1 Liter BetaRinse, Pt to Go [...] disease) stage 3, GFR 30-59 ml/min ([facility]) 03/02/2020 Creatinine 1.31 new finding as of annual physical February 2020 Depression GERD (gastroesophageal reflux disease) Occult blood positive stool Pneumonia Pruritus 03/02/2014 Chronic pruritus Ventricular tachycardia ([facility]) loop recorder in 2019 and then removed Past Surgical History: Procedure Laterality Date COLONOSCOPY 09/20/2016 Dr. Sullivan (-) COLONOSCOPY 10/27/2020 (-) Dr. Huertsa ELBOW SURGERY x's 2 ESOPHAGOSCOPY / EGD [...] a week Notes: Least expensive available on [facility] citalopram (CeleXA) 20 mg tablet -- 10/26/24 -- Zaina Terry MD TAKE 1 TABLET BY MOUTH DAILY traZODone (DESYREL) 50 mg tablet -- 01/23/25 -- Zaina Terry MD TAKE 1 TABLET (50 MG TOTAL) BY MOUTH NIGHTLY NEEDED FOR SLEEP Implants Type Not Specified [employer] [id number] Mat[place] 56mm Sector Hip Shell Acetabular Gription Sterile Latex Free - [id number] - Implanted (Right) Hip Inventory item: [employer] Matador 56mm Sector Hip Shell Acetabular Gription Sterile Latex Free [id number] Model/Cat number: [id number] Technical Administrative Assistant: [employer] Lot number: [id number] Size: 56mm OD As of 07/22/2021 Status: Implanted [employer] [id number] Matador 56mm 36mm Hip Neutral Liner Acetabular Altrx Sterile Latex Free - [id number] - Implanted (Right) Hip Inventory item: [employer] Matador 56mm 36mm Hip Neutral Liner Acetabular Altrx Sterile Latex Free [id number] Model/Cat number: [id number] Technical Administrative Assistant: [employer]ass [employer] Lot number: [id number] Size: NEUTRAL 36MM ID/56MMOD As of 07/22/2021 Status: Implanted [employer] [id number] Matador 6.5mm 35mm Acetabular Cancellous Screw Bone Sterile - [id number] - Implanted (Right) Hip Inventory item: [employer] Matador 6.5mm 35mm Acetabular Cancellous Screw Bone [id number] Model/Cat number: [id number] Technical Administrative Assistant: [employer] Lot number: [id number] Size: 6.5MM X 35MM As of 07/22/2021 Status: Implanted [employer] [id number] Actis L107 Mm Collar Hip 6 High Offset Stem Femoral - [id number] -Implanted (Right) Hip Inventory item: [employer] Actis L107 Mm Collar Hip 6 High Offset Stem Femoral [id number] Model/Cat number: [id number] Technical Administrative Assistant: [employer] Lot number: [id number] Size: 6 high collar As of 07/22/2021 Status: Implanted [employer] [id number] Articul/Geneva 36mm Cementless Hip +5mm 12/14 Taper Head Femoral Latex Free - [id number] - Implanted (Right) Hip Inventory item: [employer] Articul/geneva 36mm Cementless Hip +5mm 09/29 Taper Head Femoral Latex Free [id number] Model/Cat number: [id number] Technical Administrative Assistant: [employer] Lot number: [id number] Size: +5.0/36mm karley, 09/29dia As of 07/22/2021 Status: Implanted [employer]/C R Bard Mesh Surgical Inguinal Hernia Synthetic Patch 3dmax 4x6in [id number] - [id number] - Implanted (Left) Abdomen Inventory item: [employer]/C R BARD Mesh Surgical Inguinal Hernia Synthetic Patch 3dmax 4x6in [id number] Model/Cat number: [id number] Technical Administrative Assistant: [employer]/C R Bard Lot number: [id number] As of 11/30/2024 Status: Implanted [employer]/C R Bard Mesh Surgical Mid Anatomical Synthetic Patch 3dmax 4x6in [id number] - [id number] -Implanted (Right) Abdomen Inventory item: [employer]/C R BARD Mesh Surgical Mid Anatomical Synthetic Patch 3dmax 4x6in [id number]/Cat number: [id number] Technical Administrative Assistant: [employer]/C R Bard Lot number: [id number] As of 11/30/2024 Status: Implanted TRAVEL/EXPOSURE Travel [...] that you and your doctor have chosen [facility] for your surgery. We hope that [...] Take as prescribed Use no make-up, nail sri lankan, lotions, oils or powders on your skin. [...] down the [place]ia until you see the [employer]/coffee shop, there will be elevators to the [...] Chon Castillo M.D. MF: CHAPO Report ID: [id number] Reading Location: [id number] Procedure Note Chon Castillo MD - 02/01/2025 [...] Chon Castillo M.D. MF: CHAPO Report ID: [id number] Reading Location: [place] [address] Vandana LEIVA IMG XR PROCEDURES Fin al Result * aPTT (01/31/2025 7:38 AM CDT) aPTT 34 28 - 38 sec JENNIFER SOLITARIO ([place]) Comment: Interpretive Data Heparin therapeutic range: 66.0 - 100.0 seconds. Range based on correlation with therapeutic heparin activity range of 0.3 - 0.7 Units/mL. Current interpretive data was last revised on 2023. Blood 01/31/2025 7:38 AM CDT 01/31/2025 7:45 AM CDT Mark Lugo MD LAB BLOOD ORDERABLES Fin al Result JENNIFER SOLITARIO ([place]) 1 [facility] Department [place] [address] * Protime-INR (01/31/2025 7:38 AM CDT) PT 10.8 9.7 - 13.0 sec JENNIFER SOLIATRIO ([place]) INR 1.00 0.90 - 1.20 JENNIFER [...] BLOOD ORDERABLES Fin al Result JENNIFER SOLITARIO ([place]) 1 [facility] Department [place] [address] documented in this encounter Visit Diagnoses Diagnosis [...] 200 mg 200 mg, oral, Once, On Phylils 01/31/25 at 0800, For 1 dose, Pre-Op, [...] 01/31/2025 documented in this encounter Care Teams Clinical Auditor Relationship Specialty Start Date End Date Zaina Terry MD PCP - General 06/15/16 Jonathan Wong MD Surgeon Orthopedic Surgery 08/26/17 Mark Nelson OD [address] [place] [address] Ophthalmology 08/26/17 Dk Willis MD [address] [place] [address] Consulting Physician Cardiology 11/01/17 Everardo Huertas MD [address] [place] [address] [place] [address] Consulting Physician Gastroenterology 04/11/18 Wayne Dougherty Jr., MD [address] [place] [address] [place] [address] Consulting Physician Orthopedic Surgery 10/06/18 Kimberly Barone MD [address] [place] [address] [place] [address] Consulting Physician General Surgery 02/25/21 Turner Ramos MD [address] [facility] [place] [address] Consulting Physician Gastroenterology 02/27/21 Mark Lugo MD [address] [facility] [place] [address] Surgeon Orthopedic Surgery 07/17/21 Kristina Fonseca PA [address] [place] [address] Physician Coastal Tug Mate Orthopedic Surgery 07/22/21 David Maguire MD [facility] [place] [address] Consulting Physician Otolaryngology 02/01/24 documented as of this encounter
--- OUTSIDE RECORDS SUMMARY | 2025-02-01 20:44 | XMS_ITS | Encounter Summary ---
Author Organization [employer] ts Address [address] [place] [address] Phone Care Team Providers Care Tie Binder Name Role Phone Zaina Terry MD Primary Care Provider + [phone] Jonathan Wong MD Unavailable [phone] Matthew Cole Unavailable Unavail able Wes Oreilly MD Unavailable + Mark Nelson OD Unavailable [phone] Shelley Figueroa MD, Duy Dunaway Unavailable +[phone] Dk Willis MD Unavailable [phone] Everardo Huertas MD Unavailable +[phone] Ladonna Figueroa MD, Wayne Maguire Unavailable +- [phone] Kevin Barone MD Unavailable Turner Ramos MD Unavailable [phone] Mark Lugo MD Unavailable [phone] Kristina Fonseca Unavailable +[phone] David Maguire MD Unavailable +[phone] Encounter Details Date Type Department Care Team (Late st Contact Info) Description 09/02/2017 Orders Only [facility] [address] [place] [address] Zaina Terry MD [address] [place] [address] Social History Tobacco Use Types Packs/Day Years Used Date Smoking Tobacco: Never Smokeless Tobacco: Never Alcohol Use Standard Drinks/Week Comments No 0 (1 standard drink = 0.6 oz pur e alcohol) Sex and Gender Information Value Date Recorded Sex Assigned at Not on file Legal Sex Male 6:46 PM DEFENCE FORCE SENIOR OFFICER Gender Identity Not on file Sexual Orientation Straight 09/10/2020 8: 05 AM DEFENCE FORCE SENIOR OFFICER 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 on file Not on fi le documented as of this encounter Plan of Treatment Not on file documented as of this encounter Procedures Procedure Name Priority Date/Time Associated Diagnosis Comments SCAN - RADIOLOGY/IMAGING 09/02/2017 11:04 AM DEFENCE FORCE SENIOR OFFICER documented in this encounter Results * SCAN - RADIOLOGY/IMAGING (09/02/2017 11:04 AM DEFENCE FORCE SENIOR OFFICER) Anatomical Region Laterality Modality Other Zaina Terry MD Final Resu lt documented in this encounter Visit Diagnoses Not on filedocumented in this encounter Additional Health Concerns Infection Onset Date Last Indicated Resolved Time COVID: Suspected 09/05/2020 09/05/2020 09/06/2020 12:29 AM DEFENCE FORCE SENIOR OFFICER Respiratory Infection (SUMAYA), contact + droplet Comment:Automatically added due to negative COVID-19 result. 09/06/2020 09/06/2020 09/20/2020 3:0 6 AM DEFENCE FORCE SENIOR OFFICER COVID: Suspected 10/14/2024 10/14/2024 10/14/2024 3:28 PM DEFENCE FORCE SENIOR OFFICER Influenza, adult 10/14/2024 10/14/2024 10/21/2024 3:05 AM DEFENCE FORCE SENIOR OFFICER documented as of this encounter Care Teams Tie Binder Relationship Specialty Start Date End Date Zaina Terry MD PCP - General 06/15/16 Jonathan Wong MD Surgeon Orthopedic Surgery 08/26/17 Matthew Cole Gastroenterology 08/26/17 09/12/20 Wes Oreilly MD [address] [place] [address] Consulting Physician Gastroenterology 08/26/17 0 Mark Nelson OD [address] [place] [address] Ophthalmology 08/26/17 Duy Rosa Jr., MD [address] [place] [address] Consulting Physician Cardiovascular Disease 08/28/17 1 11/12/19 Dk Willis MD [address] [place] [address] Consulting Physician Cardiology 11/01/17 Everardo Huertas MD [address] [place] [address] [address] [place] [address] Consulting Physician Gastroenterology 04/11/18 Wayne Dougherty Jr., MD [address] [place] [address] [address] [place] [address] Consulting Physician Orthopedic Surgery 10/06/18 Kevin Barone MD [address] [place] [address] [address] [place] [address] Consulting Physician General Surgery 02/25/21 Turner Ramos MD [address] [facility] [place] [address] Consulting Physician Gastroenterology 02/27/21 Mark Lugo MD [address] [facility] [address] [address] [place] [address] Surgeon Orthopedic Surgery 07/17/21 Kristina Fonseca PA [address] [facility] [address] [place] [address] Physician Pump Stitcher Orthopedic Surgery 07/22/21 David Maguire MD [address] [place] [address] Consulting Physician Otolaryngology 02/01/24 documented as of this encounter
--- OUTSIDE RECORDS SUMMARY | 2025-02-01 20:44 | XMS_ITS | CONTINUITY OF CARE DOCUMENT ---
Author Name judd whaley Address Unknown Organization [facility] Address [address] [facility] [address] [place] [address] Phone [phone] Care Team Providers Care Watch Technician Name Role Phone Shelley DIEGO, Duy Unavailable FAITH DAVILA MD Unavailable [phone] FAITH DAVILA MD Unavailable [phone] INSURANCE PROVIDERS Payer name Policy type / Coverage type [place] red republic[employer] Other 1 [id number] [place] [employer] Medicare [id number]
--- OUTSIDE RECORDS SUMMARY | 2025-02-01 20:44 | XMS_ITS | Encounter Summary ---
Author Organization [facility] Healthcare Address [address] [place] [address] Care Team Providers Care Turfgrass Technician Name Role Phone Zaina Terry MD Primary Care Provider Jonathan Wong MD Unavailable [phone] Mark Nelson OD Unavailable [phone] Dk Willis MD Unavailable +[phone] Everardo Huertas MD Unavailable [phone] Ladonna Figueroa MD, Wayne Maguire Unavailable +- [phone] Kevin Barone MD Unavailable Turner Ramos MD Unavailable [phone] Mark Lugo MD Unavailable +[phone] Kristina Fonseca Unavailable +[phone] David Maguire MD Unavailable +[phone] Encounter Details Date Type Department Care Team (Late st Contact Info) Description 07/03/2021 Telephone 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 on file Not on fi le documented as of this encounter Plan of Treatment Not on file documented as of this encounter Visit Diagnoses Not on filedocumented in this encounter Additional Health Concerns Infection Onset Date Last Indicated Resolved Time COVID: Suspected 10/14/2024 10/14/2024 10/14/2024 3:28 PM LADLE HANDLER Influenza, adult 10/14/2024 10/14/2024 10/21/2024 3:05 AM LADLE HANDLER documented as of this encounter Care Teams Turfgrass Technician Relationship Specialty Start Date End Date Zaina Terry MD PCP - General 06/15/16 Jonathan Wong MD Surgeon Orthopedic Surgery 08/26/17 Mark Nelson OD [address] [place] [address] Ophthalmology 08/26/17 Dk Willis MD [address] [place] [address] Consulting Physician Cardiology 11/01/17 Everardo Huertas MD [address] [facility] [address] [place] [address] Consulting Physician Gastroenterology 04/11/18 Wayne Dougherty Jr., MD [address] [facility] [address] [place] [place] [address] Consulting Physician Orthopedic Surgery 10/06/18 Kevin Barone MD [address] [facility] [address] [place] [place] [address] Consulting Physician General Surgery 02/25/21 Turner Ramos MD [address] [facility] [address] [place] [address] Consulting Physician Gastroenterology 02/27/21 Mark Lugo MD [address] [place] [address] [address] [place] [address] Surgeon Orthopedic Surgery 07/17/21 Kristina Fonseca PA [address] [facility] [address] [place] [address] Physician Mothers Helper Orthopedic Surgery 07/22/21 David Maguire MD [address] [place] [address] Consulting Physician Otolaryngology 02/01/24 documented as of this encounter
[2025-02-01 20:46] LABS: Add Urine Microscopic? NO; Appearance Urine Clear (Clear); Bilirubin Urine Negative (Negative); Blood Urine Negative (Negative); Color Urine Yellow (Yellow); Glucose Urine UA Negative (Negative); Ketones Urine Negative (Negative); Leukocyte Esterase Ur Negative LEU/UL (Negative); Nitrate Urine Negative (Negative); Protein Urine Negative (Negative); Urobilinogen Urine 0.2 mg/dL (<2.0); pH Urine 5.5 (5.0-9.0)
[2025-02-01] MEDS: TAMSULOSIN HCL 0.4 MG CAPSULE PO (21:34)
--- NOTE | 2025-02-01 22:48 | PC.NURSE ---
patient to bathroom to have a bowel movement. upon return to bed, patient states that was a good enough one, I'm ready to go home . Akila ANDREWS aware.
[2025-02-01 22:53] VITALS: BP 135/78; PULSE 72; RESP 18; O2SAT 95
== END 2025-02-01 23:18 | disposition home or self-care (01) ==
PROVIDERS: Emergency Provider Emergency Medicine; PCP Internal Medicine Geriatric Medicine
DX: N99.89 Other postprocedural complications and disorders of genitourinary system (principal); R33.8 Other retention of urine; K59.00 Constipation, unspecified; I48.0 Paroxysmal atrial fibrillation; Z79.899 Other long term (current) drug therapy
CPT/HCPCS: 51702; 81003; 99283; A9270; J2405